=== PATIENT | female | born 1965 | race Caucasian/White ===

== ENCOUNTER 2016-09-05 04:05 | Inpatient (IN) | payer MEDICARE, MEDICAID ==
[2016-09-05] VITALS (7 sets, daily range): BP systolic 122–164; BP diastolic 69–93
[~2016-09-05] VITALS: Ht 160 cm; Wt 58.3 kg
[~2016-09-05 04:05] MED LIST: /QUET10TA; FERR325T; FOLI1TAB; NEUR600T; No Historical Meds; REME15TA; THIA100T
[2016-09-05] MEDS ORDERED: methylPREDNISolone INJ 125 MG/2 ML VIAL (J2930) IM ONE (04:15)
[2016-09-05 04:49] LABS: MEAN CORPUSCULAR HEMOGLOBIN 32.6 pg (27.0-33.0); MEAN CORPUSCULAR HGB CONC 32.7 g/dl (32.0-36.5); MEAN CORPUSCULAR VOLUME 99.7 fl (80.0-96.0); RED CELL DISTRIBUTION WIDTH 14.5 % (11.5-14.5); WHITE BLOOD COUNT 9.3 K/mm3 (4.0-10.0)
[2016-09-05] MEDS ORDERED: THIAMINE 100 MG TAB PO ONE (05:00)
[2016-09-05] MEDS ORDERED: FOLIC ACID 1 MG TAB PO ONE (05:00)
--- NOTE | 2016-09-05 05:20 | REPUSA ---
CLINICAL HISTORY: Altered level of consciousness. TECHNIQUE: Multiple axial CT images were obtained through the brain without IV contrast material. COMMENTS: There is normal configuration of sella turcica. There are no intra or extra-axial collections. There is no mass effect or midline shift. There is no evidence of hematoma formation. No hydrocephalus is p resent. The ventricles are symmetrical. No abnormal calcifications are present. There is diffuse age-appropriate cerebellar and cerebral atrophy with proportionally dilated ventricl es and cortical sulci. There are bilateral periventricular and subcortical white matter hypolucencies compatible with mild c hronic microvascular disease. Otherwise, no significant focal abnormalities are seen either in the posterior fossa or supratentoria l compartment. IMPRESSION: 1. Age-appropriate cerebellar and cerebral atrophy. 2. Mild chronic microvascular disease. 3. No evidence of acute intracranial pathology. No change from the prior exam on 04/11/2016. Thank you for your kind referral of this patient.
[2016-09-05] MEDS ORDERED: NEOSPORIN OINT 0.9 GM PKT (FLOOR STOCK) As Ordered ONE (05:31)
[2016-09-05 05:32] LABS: ALBUMIN 3.5 GM/DL (3.2-5.2); ALBUMIN/GLOBULIN RATIO 1.13 (1.00-1.93); ALKALINE PHOSPHATASE 108 U/L (45-117); ALT/SGPT 68 U/L (12-78); ANION GAP 15 MEQ/L (8-16); AST/SGOT 62 U/L (15-37); BILIRUBIN,DIRECT 0.4 MG/DL (0.0-0.2); BLOOD UREA NITROGEN 11 MG/DL (7-18); CARBON DIOXIDE LEVEL 21 MEQ/L (21-32); CHLORIDE LEVEL 94 MEQ/L (98-107); GLOMERULAR FILTRATION RATE 55.3 (>51); GLUCOSE, FASTING 162 MG/DL (70-105); POTASSIUM SERUM 3.6 MEQ/L (3.5-5.1); SODIUM LEVEL 130 MEQ/L (136-145); TOTAL PROTEIN 6.6 GM/DL (6.4-8.2)
[2016-09-05] MEDS ORDERED: MULTIVITAMIN -ADULT INJECTION 10 ML, THIAMINE INJection 100 MG, FOLIC ACID 1 MG in NS 1... IV ONE (06:00)
[2016-09-05 06:13] LABS: T UPTAKE 35 % (30-39); THYROXINE (T4) 6.6 UG/DL (4.5-12.0)
[2016-09-05] MEDS ORDERED: THIAMINE HCL 200 MG/2 ML VIAL (J3411) IV ONE (06:15)
[2016-09-05] MEDS ORDERED: LAMO150T PO (06:19)
[2016-09-05] MEDS ORDERED: VITA1CAP25 PO (06:19)
[2016-09-05] MEDS ORDERED: HYDR50CA2 PO (06:19)
[2016-09-05] MEDS ORDERED: SERO400T PO (06:19)
[2016-09-05] MEDS ORDERED: GABA800T PO (06:19)
[2016-09-05] MEDS ORDERED: ALBU17IN INH (06:19)
[2016-09-05 07:08] LABS: PERCENT SATURATION 23.8 % (13.2-37.4)
[2016-09-05] MEDS ORDERED: ACETAMINOPHEN TAB 650MG DOSE (2X325MG) PO PRN (07:15)
[2016-09-05] MEDS ORDERED: ONDANSETRON 4MG/2ML VIAL (J2405) IV PRN (07:15)
[2016-09-05] MEDS ORDERED: NICOTINE 21MG/24HR 1 EA TRANSDERMAL TD ONE (07:30)
[2016-09-05] MEDS ORDERED: OXAZEPAM 10 MG CAP PO PRN (07:30)
--- NOTE | 2016-09-05 08:09 | HPE ---
DATE OF ADMISSION: 09/05/2016 PRIMARY CARE PROVIDER: Aye Arcos in the [facility] CHIEF COMPLAINT: "I didn't want to come in". SUMMARY OF PRESENTATION: This is a 51-year-old who was apparently confused and combative at home. She was handcuffed and brought to the hospital for evaluation. In the emergency department, she was found to have waxing and waning mental status and I was called for admission with concerns about Korsakoff's dementia or alcoholic encephalopathy as the patient apparently has been binge drinking recently. Otherwise, the history is exceedingly limited. PAST MEDICAL HISTORY: Notable for bipolar, post traumatic stress disorder (PTSD), panic disorder, attention deficit hyperactivity disorder (ADHD), history of breast cancer status post mastectomy, granulomatous lung disease, chronic obstructive pulmonary disease (COPD) followed by [facility], nicotine dependence, hyperlipidemia, and history of alcohol abuse. No known drug allergies. SURGICAL HISTORY: Notable for mastectomy in 1994, colonoscopy with polypectomy in 2012. FAMILY HISTORY: Notable for a father who is alive at age 81 and mother who is at age 52 from lung cancer. SOCIAL HISTORY: She smokes a pack a day. She does drink alcohol. She is relatively vague about the amount she has been drinking. Denies any recreational drug use, specifically any synthetic marijuana. REVIEW OF SYSTEMS: Again, somewhat limited. No complaints of headache. No neck pain. No cough. No shortness of breath. No dysuria. No increased urinary frequency. No change in bowel habits. No diarrhea. Otherwise unremarkable. PHYSICAL EXAMINATION: Temperature 97.6, pulse 104, respiratory rate 16, blood pressure 106/63. She is awake and variously talks about herself in the same few sentences in the first and third person. It seems as though she may be confusing herself with another person, which seems somewhat odd. She also thinks that I was at her apartment earlier this evening. Currently believes she is in [facility] in [place]. Knows the year to be 2016. Believes it is September, which is a reasonable error. She knows that the president is not Haseeb, but Jaydon Kay. Head is normocephalic. Pupils are equally round and reactive, anicteric, not injected. Nasal septum is midline. Mucous membranes are tacky. Neck is supple. No cervical or supraclavicular adeonopathy. She has full range of motion without tenderness. Heart is in a regular rate and rhythm and is borderline tachycardic on my exam. No murmur, rub or gallop. Breathing is symmetrical, rested. I:E ratio is 1:3. No wheezes, rales or rhonchi. She is speaking in sentences. Radial pulses are 2+. Capillary refill is less than 2 seconds. No costovertebral angle (CVA) tenderness. No sacral edema. Abdomen is soft. Somewhat distended. Doughy. Nontender. Active bowel sounds. There is no significant lower extremity edema. She is moving all four extremities. Strength appears grossly symmetrical. Facies are symmetrical. She has a somewhat depressed mood and affect. White cell count 9.3, hemoglobin 11, and platelets 230. MCV is noted to be 99.7. Sodium is 130, potassium 3.6, chloride 94, carbon dioxide 21, BUN 11, creatinine 1.1, glucose 162. Iron is 76. TIBC is 320. Ferritin 63. Total bilirubin 1. Direct bilirubin 0.4. AST 62. ALT 68. Alkaline phosphatase 108. Total protein 6.6. Albumin 3.5. B12 and folate are pending. TSH is 4.77. Normal C4. Alcohol level is non detectably low. There is no electrocardiogram (EKG) for me to review. Results of a finger x-ray are pending. CT shows no acute pathology. ASSESSMENT: This is a 51-year-old with metabolic encephalopathy most likely related to alcohol use. Korsakoff's dementia is considered, but I believe this may represent early alcohol withdrawal in a patient who has been binge drinking and has a non detectably low alcohol level. The patient will likely require a two midnight hospital stay for further diagnostic work up and monitoring. PLAN: 1. Metabolic encephalopathy. Early alcohol withdrawal is considered. Will make Serax available as needed. At this point, the patient has been given a banana bag in the emergency department. Will continue with thiamine and folate as she has macrocytic anemia. 2. Psychiatric. The possibility of an underlying psychiatric exacerbation is considered and she may require psychiatric consult. At this point, she has no evidence of suicidal or homicidal ideation. It is slightly unusual that she is talking about herself in the first and third person. 3. The patient has history of breast cancer status post mastectomy. 4. The patient has history of chronic obstructive pulmonary disease which appears to be compensated at this point. 5. The patient has history of nicotine dependence. Will make a nicotine patch available to her during her stay. 6. The patient has history of alcohol abuse and may benefit from inpatient or outpatient treatment. At the end of this hospital course, [facility] ([facility]) will be consulted. 7. Deep vein thrombosis (DVT) prophylaxis is ordered in the form of Lovenox. 8. This patient has been signed out to Dr. Arsen Haskins.
[2016-09-05] MEDS ORDERED: NS 1,000 ML IV ONE (09:45)
[2016-09-05] MEDS ORDERED: OLANZapine INTRAMUSCULAR 10 MG VIAL (S0166) IM ONE ×2 (10:15→21:30)
[2016-09-05] MEDS ORDERED: LORazepam 2 MG TAB PO PRN (10:15)
[2016-09-05 10:21] LABS: METHADONE URINE NEGATIVE (NEGATIVE)
[2016-09-05] MEDS ORDERED: LORazepam 1 MG TAB PO PRN (12:18)
[2016-09-05] MEDS: ENOXAPARIN 40 MG/0.4 ML SYRINGE (J1650) SC SCH (12:33)
--- NOTE | 2016-09-05 12:49 | IPNPDOC ---
Subjective Date Seen The patient was seen on 09/05/16. Subjective Chief Complaint/HPI The patient is a 51-year-old female admitted with a reason for visit of Alcoholic Encephalopathy. Events since last encounter Patient was admitted to the medical service for concern for alcohol withdrawal. However, patient states that she has not had a drop of alcohol for 2 weeks. She states that she is usually a binge drinker, however is been attempting to quit. She states that she has been having some episodes of john recently, and has been much more agitated. She's begun having visual and auditory hallucinations. She states that she has a history of bipolar disorder, however has been off of Seroquel for quite some time. She currently denies any other symptoms, fevers, chills, sweats, shortness of breath, dysuria, or headaches. Constitutional: Denies: Chills, Fever, Malaise, Night Sweats ENT: Denies: Head Aches Skin: Denies: Rash, Lesions Pulmonary: Denies: Dyspnea, Cough Cardiovascular: Denies: Chest Pain, Palpitations Gastrointestinal: Denies: Nausea, Vomiting, Abdominal Pain, Diarrhea, Constipation Genitourinary: Denies: Dysuria Psych: Reports: Anxiety, Depression, Other Psych (increased agitation, hallucinations, hypomania), Denies: Mood Normal, Thoughts of Self Harm Objective Physical Examination General Exam: Positive: Alert, Cooperative, No Acute Distress Eye Exam: Positive: PERRLA, Conjunctiva & lids normal ENT Exam: Positive: Atraumatic, Mucous membr. moist/pink Neck Exam: Positive: Supple, Negative: JVD, thyromegaly Chest Exam: Positive: Clear to auscultation, Normal air movement, Diminished, Negative: Rales, Rhonchi, Wheezing Heart Exam: Positive: Tachycardic, Regular Rhythm, Normal S1, Normal S2, Negative: Murmurs, Rubs Abdomen Exam: Positive: Normal bowel sounds, Soft, Negative: Tenderness, Hepatospenomegaly Extremity Exam: Positive: Normal pulses, Negative: Clubbing, Cyanosis, Edema Skin Exam: Positive: Nl turgor and temperature, Negative: Rash, Breakdown Neuro Exam: Positive: Normal Speech, Other (mild tremor of hands bilaterally) Psych Exam: Positive: Oriented x 3, Other (calm and cooperative, however required dose of IM Zyprexa ,30 minutes prior to exam), Negative: Mood NL (depressed affect) Assessment /Plan Problems (1) Bipolar II disorder major depressive with atypical features Status: Chronic Response to Treatment: Worse Problem Text: Patient's initial admission diagnoses for concern for Warnicke Korsakoff. However, patient's change in mental status may be related to her underlying mixed mood disorder, which is not currently being treated. She required an IM dose of Zyprexa in the ER for hallucinations, agitation, and combativeness. At the time of the exam, the patient was calm, cooperative, and had a mild rest tremor in her hands bilaterally. She denies drinking for the past 2 weeks, which would make acute alcohol withdrawal very unlikely. She describes episodes of hypomania at home, and her change in behavior, mood, agitation, and hallucinations could all be connected to her underlying, untreated mood disorder. - 1 time aripiprazole 10 mg at bedtime -Aripiprazole 15 mg at bedtime thereafter -Consult psychiatry 09/06/2016 (2) Alcoholism /alcohol abuse Problem Text: Patient received banana bag in the ER. Per patient's story, it would be highly unlikely for her to have any withdrawal symptoms 2 weeks after her last drink. However, we'll continue by mouth folate and B12, and continue CIWA scoring overnight. If she is not scoring after starting treatment for her underlying psych disorder, we will plan to move her to the floor tomorrow. - CIWA with PRN lorazepam - folate, B12 Plan/VTE VTE Prophylaxis Ordered?: Yes (Lovenox) Disposition Pending psych eval, stable neurologic status, stable psychiatric status VS, I&O, 24H, Fishbone Vital Signs/I&O Vital Signs Date Time Temp Pulse Resp B/P (MAP) Pulse Ox O2 Delivery O2 Flow Rate FiO2 09/05/16 12:01 110 130/88 09/05/16 12:00 99.5 09/05/16 11:44 20 94 Laboratory Data 24H LABS Laboratory Tests 2 09/05/16 04:36: Iron Level 76, Total Iron Binding Capacity 320, Transferrin % Saturation 23.8, Ferritin 63, C-Reactive Protein, Quantitative 0.78H 09/05/16 04:43: Anion Gap 15, Glomerular Filtration Rate 55.3, Calcium Level 8.0L, Aspartate Amino Transf (AST/SGOT) 62H, Alanine Aminotransferase (ALT/SGPT) 68, Alkaline Phosphatase 108, Total Bilirubin 1.0, Direct Bilirubin 0.4H, Total Protein 6.6, Albumin 3.5, Albumin/Globulin Ratio 1.13, Thyroid Stimulating Hormone (TSH) 4.770H, Thyroxine (T4) 6.6, Triiodothyronine (T3) Uptake 35, Salicylates Level 4.3L, Acetaminophen Level 2.4L, Ethyl Alcohol Level < 0.003 09/05/16 09:37: Urine Amphetamines Screen NEGATIVE, Urine Benzodiazepines Screen NEGATIVE, Urine Opiates Screen NEGATIVE, Urine Methadone Screen NEGATIVE, Urine Barbiturates Screen NEGATIVE, Urine Phencyclidine Screen NEGATIVE, Urine Cocaine Metabolite Screen NEGATIVE, Urine Cannabinoids Screen POSITIVEH CBC/BMP Laboratory Tests 09/05/16 04:42 Red Blood Count 3.38 L, Mean Corpuscular Volume 99.7 H, Mean Corpuscular Hemoglobin 32.6, Mean Corpuscular Hemoglobin Concent 32.7, Red Cell Distribution Width 14.5 09/05/16 04:43 FANI MENDOZA MD Sep 05, 2016 12:49
--- NOTE | 2016-09-05 14:45 | REP ---
RIGHT FINGERS, FOUR VIEWS: HISTORY: Trauma. There is no acute fracture or dislocation. The joint spaces are normal in appearance. IMPRESSION: There is no acute fracture or dislocation. Signed by Jaspreet Kelly MD 09/05/2016 03:18 P
[2016-09-05] MEDS ORDERED: LORazepam 2 MG/ML VIAL (J2060) As Ordered ONE (19:51)
[2016-09-05] MEDS: LORazepam 2 MG/ML VIAL (J2060) IV PRN ×3 (19:55→22:44)
[2016-09-05] MEDS ORDERED: ARIPiprazole 10 MG TAB PO ONE (21:00)
[2016-09-06] VITALS (8 sets, daily range): BP systolic 116–146; BP diastolic 69–91
[2016-09-06 05:27] LABS: MEAN CORPUSCULAR HEMOGLOBIN 33.1 pg (27.0-33.0); MEAN CORPUSCULAR HGB CONC 33.4 g/dl (32.0-36.5); MEAN CORPUSCULAR VOLUME 99.2 fl (80.0-96.0); RED CELL DISTRIBUTION WIDTH 14.3 % (11.5-14.5); WHITE BLOOD COUNT 6.8 K/mm3 (4.0-10.0)
[2016-09-06 05:44] LABS: ANION GAP 9 MEQ/L (8-16); BLOOD UREA NITROGEN 8 MG/DL (7-18); CALCIUM LEVEL 7.6 MG/DL (8.5-10.1); CARBON DIOXIDE LEVEL 24 MEQ/L (21-32); CHLORIDE LEVEL 106 MEQ/L (98-107); CREATININE FOR GFR 0.52 MG/DL (0.55-1.02); GLUCOSE, FASTING 75 MG/DL (70-105); MAGNESIUM LEVEL 2.4 MG/DL (1.8-2.4); POTASSIUM SERUM 3.2 MEQ/L (3.5-5.1); SODIUM LEVEL 139 MEQ/L (136-145)
[2016-09-06 05:47] LABS: GLOMERULAR FILTRATION RATE > 60.0 (>51)
[2016-09-06] MEDS: FOLIC ACID 1 MG TAB PO SCH (09:19)
[2016-09-06] MEDS: MULTIVITAMINS/MINERALS THERAP 1 TAB PO SCH (09:19)
[2016-09-06] MEDS: ENOXAPARIN 40 MG/0.4 ML SYRINGE (J1650) SC SCH (09:20)
[2016-09-06] MEDS: THIAMINE HCL 200 MG/2 ML VIAL (J3411) IV SCH (09:20)
--- NOTE | 2016-09-06 09:45 | IPNPDOC ---
Subjective Date Seen The patient was seen on 09/06/16. Subjective Chief Complaint/HPI The patient is a 51-year-old female admitted with a reason for visit of Alcoholic Encephalopathy. Events since last encounter Pt states this morning that she hasn't had a drink in 3-4 days, states that she stopped drinking about 12 pack of beer daily. She states that she recently came into a large settlement and decided that she didn't want to drink away all of her money. She in the last 3-4 weeks has felt very depressed which prompted her increased drinking. She was involved and a psych/addiction treatment program in [facility], which she stopped attending about 4 weeks ago bc of increased depression. General: Reports: Fatigue Constitutional: Denies: Chills, Fever Pulmonary: Denies: Dyspnea, Cough Cardiovascular: Denies: Chest Pain, Palpitations Gastrointestinal: Denies: Nausea, Vomiting, Diarrhea Neurological: Reports: Weakness Psych: Reports: Anxiety, Depression, Memory Issues, Denies: Thoughts of Self Harm, Anger, Thoughts of Harming Other Objective Physical Examination General Exam: Positive: Alert, Cooperative, No Acute Distress Eye Exam: Positive: PERRLA, Conjunctiva & lids normal ENT Exam: Positive: Atraumatic, Mucous membr. moist/pink Neck Exam: Positive: Supple, Negative: JVD, thyromegaly Chest Exam: Positive: Clear to auscultation, Normal air movement, Diminished, Negative: Rales, Rhonchi, Wheezing Heart Exam: Positive: Tachycardic, Regular Rhythm, Normal S1, Normal S2, Negative: Murmurs, Rubs Abdomen Exam: Positive: Normal bowel sounds, Soft, Negative: Tenderness, Hepatospenomegaly Extremity Exam: Positive: Normal pulses, Negative: Clubbing, Cyanosis, Edema Skin Exam: Positive: Nl turgor and temperature, Negative: Rash, Breakdown Neuro Exam: Positive: Normal Speech, Other (mild tremor of hands bilaterally) Psych Exam: Positive: Oriented x 3, Other (calm and cooperative, however required dose of IM Zyprexa ,30 minutes prior to exam), Negative: Mood NL (depressed affect) Assessment /Plan Problems (1) Fever Problem Text: 09/06/16 101.5 at 12:20-no obvious source, declining WBC, ? 2 too many blankets +/- URI-t/f (2) Alcoholism /alcohol abuse Problem Text: 09/06- Ok to transfer to the floor, Cont with prn lorazepam- although last dose 09/05/16 1900 c no s/s of withdraw. Psychiatry recommends out -patient rx. will benefit from [facility] addiction services-plan d/c in AM if stable by PT and resolved fever 09/05 Patient received banana bag in the ER. Per patient's story, it would be highly unlikely for her to have any withdrawal symptoms 2 weeks after her last drink. However, we'll continue by mouth folate and B12, and continue CIWA scoring overnight. If she is not scoring after starting treatment for her underlying psych disorder, we will plan to move her to the floor tomorrow. - CIWA with PRN lorazepam - folate, B12 (3) Bipolar II disorder major depressive with atypical features Status: Chronic Response to Treatment: Worse Problem Specific Plan: Consult Specialist Problem Text: 09/06 - Refused PO med Abilify last night, was given IM Zyprexa yesterday AM and repeated in the evening. Will consult psych for recommendations. 09/05 Patient's initial admission diagnoses for concern for Warnicke Korsakoff. However, patient's change in mental status may be related to her underlying mixed mood disorder, which is not currently being treated. She required an IM dose of Zyprexa in the ER for hallucinations, agitation, and combativeness. At the time of the exam, the patient was calm, cooperative, and had a mild rest tremor in her hands bilaterally. She denies drinking for the past 2 weeks, which would make acute alcohol withdrawal very unlikely. She describes episodes of hypomania at home, and her change in behavior, mood, agitation, and hallucinations could all be connected to her underlying, untreated mood disorder. - 1 time aripiprazole 10 mg at bedtime -Aripiprazole 15 mg at bedtime thereafter -Consult psychiatry 09/06/2016 Plan/VTE VTE Prophylaxis Ordered?: Yes (Lovenox) VS, I&O, 24H, Fishbone Vital Signs/I&O Vital Signs Date Time Temp Pulse Resp B/P (MAP) Pulse Ox O2 Delivery O2 Flow Rate FiO2 09/06/16 08:00 98.8 93 20 122/83 (96) 91 Room Air I&O- Last 24 Hours up to 6 AM 09/06/16 06:00 Intake Total 2060 ml Output Total 900 ml Balance 1160 ml Laboratory Data 24H LABS Laboratory Tests 2 09/05/16 09:37: Urine Amphetamines Screen NEGATIVE, Urine Benzodiazepines Screen NEGATIVE, Urine Opiates Screen NEGATIVE, Urine Methadone Screen NEGATIVE, Urine Barbiturates Screen NEGATIVE, Urine Phencyclidine Screen NEGATIVE, Urine Cocaine Metabolite Screen NEGATIVE, Urine Cannabinoids Screen POSITIVEH 09/06/16 05:09: Anion Gap 9, Glomerular Filtration Rate > 60.0, Blood Urea Nitrogen 8, Creatinine 0.52#L, Sodium Level 139#, Potassium Level 3.2L, Chloride Level 106, Carbon Dioxide Level 24, Calcium Level 7.6L, Magnesium Level 2.4 CBC/BMP Laboratory Tests 09/06/16 05:09 Red Blood Count 3.08 L, Mean Corpuscular Volume 99.2 H, Mean Corpuscular Hemoglobin 33.1 H, Mean Corpuscular Hemoglobin Concent 33.4, Red Cell Distribution Width 14.3, Calcium Level 7.6 L AMBERLY CHRISTOPHER PA-C September 06, 2016 09:45 Wilian Cobos M.D. September 06, 2016 13:37
[2016-09-06 11:05] LABS: FOLATE 12.6 NG/ML (>5.4)
[2016-09-06] MEDS: POTASSIUM CHLORIDE 10 MEQ SR TABLET PO SCH ×2 (14:37→20:14)
[2016-09-06] MEDS: ARIPiprazole 15 MG TAB (AbiLIFY) PO SCH ×2 (20:14→20:31)
[2016-09-06] MEDS ORDERED: QUEtiapine FUMARATE 100 MG TAB PO ONE (20:30)
[2016-09-06] MEDS ORDERED: GABAPENTIN 400 MG CAP PO ONE (20:30)
[2016-09-07 06:00] VITALS: BP 109/62
[2016-09-07 06:57] VITALS: BP 140/76
[2016-09-07 07:13] LABS: MEAN CORPUSCULAR HEMOGLOBIN 33.7 pg (27.0-33.0); MEAN CORPUSCULAR HGB CONC 33.5 g/dl (32.0-36.5); MEAN CORPUSCULAR VOLUME 100.5 fl (80.0-96.0); RED CELL DISTRIBUTION WIDTH 14.5 % (11.5-14.5); WHITE BLOOD COUNT 5.5 K/mm3 (4.0-10.0)
[2016-09-07 07:29] LABS: ANION GAP 8 MEQ/L (8-16); BLOOD UREA NITROGEN 8 MG/DL (7-18); CALCIUM LEVEL 7.9 MG/DL (8.5-10.1); CARBON DIOXIDE LEVEL 25 MEQ/L (21-32); CHLORIDE LEVEL 108 MEQ/L (98-107); CREATININE FOR GFR 0.53 MG/DL (0.55-1.02); GLOMERULAR FILTRATION RATE > 60.0 (>51); GLUCOSE, FASTING 92 MG/DL (70-105); MAGNESIUM LEVEL 2.3 MG/DL (1.8-2.4); POTASSIUM SERUM 3.5 MEQ/L (3.5-5.1); SODIUM LEVEL 141 MEQ/L (136-145)
[2016-09-07] MEDS: THIAMINE HCL 200 MG/2 ML VIAL (J3411) IV SCH (09:00)
[2016-09-07] MEDS: ENOXAPARIN 40 MG/0.4 ML SYRINGE (J1650) SC SCH (09:04)
[2016-09-07] MEDS: POTASSIUM CHLORIDE 10 MEQ SR TABLET PO SCH (09:05)
[2016-09-07] MEDS: FOLIC ACID 1 MG TAB PO SCH (09:05)
[2016-09-07] MEDS: MULTIVITAMINS/MINERALS THERAP 1 TAB PO SCH (09:05)
[2016-09-07] MEDS ORDERED: FOLI1TAB2 PO (09:29)
[2016-09-07] MEDS ORDERED: HYDR50CA2 PO (09:29)
[2016-09-07] MEDS ORDERED: SERO400T PO (09:29)
[2016-09-07] MEDS ORDERED: POTA10CA PO (09:29)
[2016-09-07] MEDS ORDERED: VITMTA PO (09:29)
[2016-09-07] MEDS ORDERED: LAMO150T PO (09:29)
[2016-09-07] MEDS ORDERED: THIA100T PO (09:29)
--- NOTE | 2016-09-07 10:31 | DSES ---
DATE OF ADMISSION: 09/05/2016 DATE OF DISCHARGE: 09/07/2016 PRIMARY CARE PROVIDER: DIEUDONNE Agarwal ATTENDING PHYSICIAN: Dr. Wilian Cobos HISTORY: This is a 51-year-old female patient who follows with me in the outpatient setting, who was brought to the emergency room combative and confused. She required being handcuffed and brought to the hospital for evaluation as she had waxing and waning in her mental status. Her history is vague, as she is a poor historian but also has had mental status changes, although she does have a history of binge drinking. Her most recent and persistent story is that she has been on a binge for 2-3 months, drinking about a 12-pack of beer a day. She recently came across a large sum of money associated with a settlement and decided that she was not going to drink all of her money away and, therefore, suddenly stopped drinking and had progressive symptoms associated with that leading up to her hospitalization. She also, at about the time she began drinking, discontinued her routine psychiatric medications for her bipolar disorder, which included Lamictal and Seroquel. She had been following 2-3 days weekly prior to this most recent episode in [place] with [facility], although she stopped showing up at those appointments. She was in treatment for dual mental health and addiction services. During her hospitalization, she has remained medically stable. She was admitted to the progressive care unit for further treatment and monitoring. She was offered lorazepam and Serax, although she only received one dose of Serax shortly after her arrival. She also received three doses of Ativan, also shortly after her arrival. Abilify was prescribed, although the patient has consistently refused this. Given her history of alcohol abuse, she was started on thiamine and folic acid. She received a banana bag in the emergency room. She has been eating well. She was hypokalemic, and this has been replaced. She is eager to return home. She does not plan on resuming drinking. She notes that part of the additional stress which she thinks sent her over the edge is the fact that she has to move out of her apartment as the building she is in is currently being shut down for remodel. She is planning to move to [place], as she has family in that area. DISCHARGE DIAGNOSES: Include: 1. Alcoholic encephalopathy with a history of alcoholism. 2. Fever. 3. Bipolar disorder with major depressive and atypical features. DISCHARGE MEDICATIONS: Include: - folic acid 1 mg daily - multivitamin one tablet daily - potassium chloride 20 mEq by mouth twice a day - thiamine 100 mg by mouth daily - albuterol HFA two puffs inhaled every 4 hours as needed for shortness of breath - vitamin D3, 50,000 units once weekly - hydroxyzine 50 mg by mouth three times daily as needed for anxiety or agitation - lamotrigine 150 mg daily Seroquel was dropped from 400 mg to 200 mg before bed, as she has not been on this. DISCHARGE PLAN: Will be to followup with Aye Arcos in 1 week. Activity should be as tolerated. Diet should be regular. I also requested that a referral was reinitiated to [facility] for bipolar disorder with depressive features and alcohol abuse history. Edited: baldev 09/08/2016 [id number]
[2016-09-07 10:40] VITALS: BP 109/62
== END 2016-09-07 10:58 | disposition home or self-care (01) | DRG 57 ==
LOC: EDBD 04:05 → M ED 05:18 → M ED INP 07:05 → M PCU 12:00 → M MSPAV 09-06 14:32
PROVIDERS: ADMIT Internal Medicine; ATTEND Family Medicine
DX: G31.2 Degeneration of nervous system due to alcohol (principal); F31.81 Bipolar II disorder; F10.20 Alcohol dependence, uncomplicated; F43.10 Post-traumatic stress disorder, unspecified; E78.5 Hyperlipidemia, unspecified; F41.0 Panic disorder [episodic paroxysmal anxiety]; J44.9 Chronic obstructive pulmonary disease, unspecified; J84.10 Pulmonary fibrosis, unspecified; F17.210 Nicotine dependence, cigarettes, uncomplicated; E87.6 Hypokalemia; Z90.10 Acquired absence of unspecified breast and nipple; Z85.3 Personal history of malignant neoplasm of breast; Z79.899 Other long term (current) drug therapy

== ENCOUNTER 2017-05-29 03:59 | Inpatient (IN) | payer MEDICARE, MEDICAID ==
[2017-05-29] MEDS: PHENobarbital 30 MG TAB PO (04:29)
[2017-05-29 04:45] LABS: MEAN CORPUSCULAR HEMOGLOBIN 32.6 pg (27.0-33.0); MEAN CORPUSCULAR HGB CONC 35.5 g/dl (32.0-36.5); PLATELET COUNT, AUTOMATED 265 10^3/uL (150-450); RED BLOOD COUNT 3.37 10^6/uL (4.00-5.40); RED CELL DISTRIBUTION WIDTH 14.8 % (11.5-14.5); WHITE BLOOD COUNT 11.8 10^3/uL (4.0-10.0)
[2017-05-29] MEDS: THIAMINE 100 MG TAB PO (04:56)
[2017-05-29 05:10] LABS: ACETAMINOPHEN LEVEL < 2.0 UG/ML (10.0-30.0); ALBUMIN 3.3 GM/DL (3.2-5.2); ALBUMIN/GLOBULIN RATIO 0.97 (1.00-1.93); ALKALINE PHOSPHATASE 197 U/L (45-117); ALT/SGPT 108 U/L (12-78); ANION GAP 16 MEQ/L (8-16); AST/SGOT 118 U/L (7-37); BILIRUBIN,DIRECT 0.4 MG/DL (0.0-0.2); BLOOD UREA NITROGEN 11 MG/DL (7-18); CALCIUM LEVEL 8.4 MG/DL (8.5-10.1); CARBON DIOXIDE LEVEL 24 MEQ/L (21-32); CHLORIDE LEVEL 91 MEQ/L (98-107); CREATININE FOR GFR 1.02 MG/DL (0.55-1.02); GLOMERULAR FILTRATION RATE > 60.0 (>51); GLUCOSE, FASTING 179 MG/DL (70-105); POTASSIUM SERUM 2.6 MEQ/L (3.5-5.1); SALICYLATE LEVEL < 1.7 MG/DL (5.0-30.0); SODIUM LEVEL 131 MEQ/L (136-145); TOTAL PROTEIN 6.7 GM/DL (6.4-8.2)
[2017-05-29 05:12] LABS: ETHYL ALCOHOL (ETHANOL) < 0.003 % (0.000-0.010)
[2017-05-29] MEDS: POTASSIUM CHLORIDE 10 MEQ SR TABLET PO ×2 (05:28→16:30)
[2017-05-29 06:09] LABS: AMPHETAMINES LEVEL URINE NEGATIVE (NEGATIVE); BARBITURATES URINE POSITIVE (NEGATIVE); BENZODIAZEPINES URINE NEGATIVE (NEGATIVE); CANNABINOIDS URINE POSITIVE (NEGATIVE); COCAINE METABOLITE URINE POSITIVE (NEGATIVE); METHADONE URINE NEGATIVE (NEGATIVE); OPIATES URINE NEGATIVE (NEGATIVE); PHENCYCLIDINE URINE NEGATIVE (NEGATIVE)
[2017-05-29] MEDS: KCL 10MEQ IN 100ML SWI (KRUN) 10 MEQ in APPROPRIATE DILUENT 1 EA IV (07:59)
[2017-05-29] MEDS: NS 1,000 ML IV ×2 (08:00→10:15)
[2017-05-29] MEDS: ADACEL/BOOSTRIX VACCINE (DIPHTH/PERTUSS/ACELL/TETANUS)0.5ML SYR (90715) IM (08:09)
[2017-05-29 08:17] LABS: MAGNESIUM LEVEL 1.9 MG/DL (1.8-2.4)
[2017-05-29] MEDS: CYANOCOBALAMIN 1,000 MCG/ML VIAL (J3420) SC (09:00)
[2017-05-29] MEDS ORDERED: ONDANSETRON 4 MG TAB (S0181) PO (09:45)
[2017-05-29] MEDS ORDERED: ALBUTEROL 90 MCG/ACT 8GM HFA INHALER INH (10:30)
[2017-05-29 10:42] LABS: AMMONIA 30 uMOL/L (<32)
[2017-05-29 10:47] LABS: ANION GAP 10 MEQ/L (8-16); BLOOD UREA NITROGEN 9 MG/DL (7-18); CALCIUM LEVEL 7.8 MG/DL (8.5-10.1); CARBON DIOXIDE LEVEL 26 MEQ/L (21-32); CHLORIDE LEVEL 97 MEQ/L (98-107); CREATININE FOR GFR 0.61 MG/DL (0.55-1.02); GLOMERULAR FILTRATION RATE > 60.0 (>51); GLUCOSE, FASTING 138 MG/DL (70-105); POTASSIUM SERUM 3.3 MEQ/L (3.5-5.1); SODIUM LEVEL 133 MEQ/L (136-145)
[2017-05-29] MEDS: THIAMINE IV (10:53)
[2017-05-29] MEDS: NS IV (10:53)
[2017-05-29] MEDS ORDERED: hydrOXYzine 50 MG TAB PO (11:00)
[2017-05-29] MEDS ORDERED: OXAZEPAM 10 MG CAP PO (12:00)
[2017-05-29] MEDS ORDERED: KCL 10MEQ IN 100ML SWI (KRUN) 10 MEQ in APPROPRIATE DILUENT 1 EA IV (13:00)
[2017-05-29] MEDS ORDERED: HEPARIN SOD (PORCINE) 5000 UNITS/ML VIAL SC (14:00)
[2017-05-29] MEDS: GABAPENTIN 400 MG CAP PO ×2 (16:29→21:08)
[2017-05-29] MEDS ORDERED: QUEtiapine FUMARATE 200 MG TAB PO (21:00)
[2017-05-29] MEDS: QUEtiapine FUMARATE 200 MG TAB PO (21:08)
[2017-05-29] MEDS: THIAMINE HCL 200 MG/2 ML VIAL (J3411) IM (21:09)
[2017-05-29] MEDS: LORazepam 2 MG/ML VIAL (J2060) IV (21:52)
[2017-05-30 07:01] LABS: HEMATOCRIT 27.6 % (36.0-47.0); HEMOGLOBIN 9.4 g/dl (12.0-16.0); MEAN CORPUSCULAR HEMOGLOBIN 32.1 pg (27.0-33.0); MEAN CORPUSCULAR HGB CONC 34.1 g/dl (32.0-36.5); MEAN CORPUSCULAR VOLUME 94.2 fl (80.0-96.0); PLATELET COUNT, AUTOMATED 262 10^3/uL (150-450); RED BLOOD COUNT 2.93 10^6/uL (4.00-5.40); RED CELL DISTRIBUTION WIDTH 15.9 % (11.5-14.5); WHITE BLOOD COUNT 7.5 10^3/uL (4.0-10.0)
[2017-05-30 07:15] LABS: INR 0.96; PROTHROMBIN TIME 12.9 SECONDS (12.4-14.5)
[2017-05-30 07:16] LABS: PARTIAL THROMBOPLASTIN TIME 30.9 SECONDS (26.8-37.9)
[2017-05-30 07:28] LABS: ANION GAP 9 MEQ/L (8-16); BLOOD UREA NITROGEN 10 MG/DL (7-18); CALCIUM LEVEL 8.3 MG/DL (8.5-10.1); CARBON DIOXIDE LEVEL 23 MEQ/L (21-32); CHLORIDE LEVEL 105 MEQ/L (98-107); CREATININE FOR GFR 0.44 MG/DL (0.55-1.02); GLOMERULAR FILTRATION RATE > 60.0 (>51); GLUCOSE, FASTING 80 MG/DL (70-105); POTASSIUM SERUM 3.3 MEQ/L (3.5-5.1); SODIUM LEVEL 137 MEQ/L (136-145)
[2017-05-30] MEDS: QUEtiapine FUMARATE 200 MG TAB PO ×2 (09:38→20:16)
[2017-05-30] MEDS: CYANOCOBALAMIN 1,000 MCG/ML VIAL (J3420) SC (09:38)
[2017-05-30] MEDS: GABAPENTIN 400 MG CAP PO ×3 (09:38→20:16)
[2017-05-30] MEDS: THIAMINE HCL 200 MG/2 ML VIAL (J3411) IM ×2 (09:38→20:17)
[2017-05-30 11:47] LABS: VITAMIN B12 LEVEL 402 PG/ML (247-911)
[2017-05-30 11:48] LABS: FOLATE 13.2 NG/ML (>5.4)
[2017-05-30 12:04] LABS: HEPATITIS C VIRUS ABY INDEX 0.1 INDEX (<0.8)
[2017-05-30 12:54] LABS: HEPATITIS B SURFACE ANTIGEN NEGATIVE (NEGATIVE)
[2017-05-30 13:22] LABS: HEPATITIS B CORE ANTIBODY IGM NEGATIVE (NEGATIVE)
[2017-05-30 13:24] LABS: HEPATITIS A ANTIBODY IGM NEGATIVE (NEGATIVE)
[2017-05-30] MEDS: POTASSIUM CHLORIDE 10 MEQ SR TABLET PO ×2 (13:41→20:16)
[2017-05-30] MEDS: LORazepam 2 MG/ML VIAL (J2060) IV ×4 (13:57→22:10)
[2017-05-30 14:31] LABS: RETIC HEMOGLOBIN EQUIVALENT 38.5 pg (24-36); RETICULOCYTE # 89.2 10^9/L (17-77); RETICULOCYTE % 3.1 % (0.5-1.5)
[2017-05-30 14:41] LABS: INR 0.88
[2017-05-30 14:42] LABS: PARTIAL THROMBOPLASTIN TIME 31.5 SECONDS (26.8-37.9)
[2017-05-30 14:44] LABS: MAGNESIUM LEVEL 1.9 MG/DL (1.8-2.4)
[2017-05-30 14:59] LABS: FOLATE 9.3 NG/ML (>5.4)
[2017-05-30 14:59] LABS: VITAMIN B12 LEVEL > 2000 PG/ML (247-911)
[2017-05-30 15:22] LABS: HEPATITIS B SURFACE ANTIGEN NEGATIVE (NEGATIVE)
[2017-05-30 15:50] LABS: HEPATITIS B CORE ANTIBODY IGM NEGATIVE (NEGATIVE)
[2017-05-30 15:52] LABS: HEPATITIS A ANTIBODY IGM NEGATIVE (NEGATIVE)
[2017-05-30 16:55] LABS: ACETAMINOPHEN LEVEL < 2.0 UG/ML (10.0-30.0); ALBUMIN 2.8 GM/DL (3.2-5.2); ALBUMIN/GLOBULIN RATIO 0.88 (1.00-1.93); ALKALINE PHOSPHATASE 165 U/L (45-117); ALT/SGPT 100 U/L (12-78); ANION GAP 7 MEQ/L (8-16); AST/SGOT 122 U/L (7-37); BILIRUBIN,DIRECT 0.2 MG/DL (0.0-0.2); BILIRUBIN,TOTAL 0.4 MG/DL (0.2-1.0); BLOOD UREA NITROGEN 11 MG/DL (7-18); CALCIUM LEVEL 8.2 MG/DL (8.5-10.1); CARBON DIOXIDE LEVEL 29 MEQ/L (21-32); CHLORIDE LEVEL 104 MEQ/L (98-107); CREATININE FOR GFR 0.56 MG/DL (0.55-1.02); ETHYL ALCOHOL (ETHANOL) < 0.003 % (0.000-0.010); FERRITIN 95 NG/ML (8-252); FREE T4 0.92 NG/DL (0.76-1.46); GLOMERULAR FILTRATION RATE > 60.0 (>51); GLUCOSE, FASTING 87 MG/DL (70-100); IRON (FE) 25 UG/DL (50-170); PERCENT SATURATION 12.4 % (13.2-45.0); POTASSIUM SERUM 3.8 MEQ/L (3.5-5.1); SALICYLATE LEVEL < 1.7 MG/DL (5.0-30.0); SODIUM LEVEL 140 MEQ/L (136-145); TOTAL IRON BINDING CAPACITY 202 UG/DL (250-450)
[2017-05-31] MEDS: LORazepam 2 MG/ML VIAL (J2060) IV ×3 (00:44→09:37)
[2017-05-31 06:34] LABS: HEMATOCRIT 27.7 % (36.0-47.0); HEMOGLOBIN 9.3 g/dl (12.0-16.0); MEAN CORPUSCULAR HEMOGLOBIN 31.6 pg (27.0-33.0); MEAN CORPUSCULAR HGB CONC 33.6 g/dl (32.0-36.5); MEAN CORPUSCULAR VOLUME 94.2 fl (80.0-96.0); PLATELET COUNT, AUTOMATED 313 10^3/uL (150-450); RED BLOOD COUNT 2.94 10^6/uL (4.00-5.40); RED CELL DISTRIBUTION WIDTH 16.2 % (11.5-14.5); WHITE BLOOD COUNT 8.9 10^3/uL (4.0-10.0)
[2017-05-31 07:00] LABS: ANION GAP 9 MEQ/L (8-16); BLOOD UREA NITROGEN 9 MG/DL (7-18); CALCIUM LEVEL 8.1 MG/DL (8.5-10.1); CARBON DIOXIDE LEVEL 26 MEQ/L (21-32); CHLORIDE LEVEL 103 MEQ/L (98-107); CREATININE FOR GFR 0.48 MG/DL (0.55-1.02); GLOMERULAR FILTRATION RATE > 60.0 (>51); GLUCOSE, FASTING 93 MG/DL (70-100); MAGNESIUM LEVEL 1.8 MG/DL (1.8-2.4); POTASSIUM SERUM 4.1 MEQ/L (3.5-5.1); SODIUM LEVEL 138 MEQ/L (136-145)
[2017-05-31] MEDS: GABAPENTIN 400 MG CAP PO ×3 (09:36→20:30)
[2017-05-31] MEDS: CYANOCOBALAMIN 1,000 MCG/ML VIAL (J3420) SC (09:36)
[2017-05-31] MEDS: POTASSIUM CHLORIDE 10 MEQ SR TABLET PO ×2 (09:36→20:30)
[2017-05-31] MEDS: THIAMINE HCL 200 MG/2 ML VIAL (J3411) IM (09:36)
[2017-05-31] MEDS: QUEtiapine FUMARATE 200 MG TAB PO ×2 (09:36→20:30)
[2017-05-31] MEDS: OXAZEPAM 15 MG CAP PO (14:00)
[2017-05-31] MEDS ORDERED: OXAZEPAM 10 MG CAP PO (16:00)
[2017-06-01 06:26] LABS: HEMATOCRIT 30.4 % (36.0-47.0); HEMOGLOBIN 10.2 g/dl (12.0-16.0); MEAN CORPUSCULAR HEMOGLOBIN 31.4 pg (27.0-33.0); MEAN CORPUSCULAR HGB CONC 33.6 g/dl (32.0-36.5); MEAN CORPUSCULAR VOLUME 93.5 fl (80.0-96.0); PLATELET COUNT, AUTOMATED 377 10^3/uL (150-450); RED BLOOD COUNT 3.25 10^6/uL (4.00-5.40); RED CELL DISTRIBUTION WIDTH 15.9 % (11.5-14.5); WHITE BLOOD COUNT 9.5 10^3/uL (4.0-10.0)
[2017-06-01 06:39] LABS: ANION GAP 7 MEQ/L (8-16); BLOOD UREA NITROGEN 8 MG/DL (7-18); CALCIUM LEVEL 8.1 MG/DL (8.5-10.1); CARBON DIOXIDE LEVEL 27 MEQ/L (21-32); CHLORIDE LEVEL 102 MEQ/L (98-107); CREATININE FOR GFR 0.46 MG/DL (0.55-1.02); GLOMERULAR FILTRATION RATE > 60.0 (>51); GLUCOSE, FASTING 108 MG/DL (70-100); POTASSIUM SERUM 4.4 MEQ/L (3.5-5.1); SODIUM LEVEL 136 MEQ/L (136-145)
[2017-06-01 08:09] LABS: TRANSFERRIN 177 mg/dL (200-370)
[2017-06-01] MEDS: QUEtiapine FUMARATE 200 MG TAB PO (09:03)
[2017-06-01] MEDS: CYANOCOBALAMIN 1,000 MCG/ML VIAL (J3420) SC (09:03)
[2017-06-01] MEDS: POTASSIUM CHLORIDE 10 MEQ SR TABLET PO (09:03)
[2017-06-01] MEDS: GABAPENTIN 400 MG CAP PO ×2 (09:03→16:41)
[2017-06-01] MEDS ORDERED: OXAZEPAM 10 MG CAP PO (16:00)
== END 2017-06-01 17:03 | DRG 57 ==
LOC: M ED 03:59 → M ED INP 11:36 → M MSPAV 15:45
PROVIDERS: Family Medicine
DX: G31.2 Degeneration of nervous system due to alcohol (principal); E51.2 Wernicke's encephalopathy; F31.81 Bipolar II disorder; E87.1 Hypo-osmolality and hyponatremia; E87.6 Hypokalemia; E53.8 Deficiency of other specified B group vitamins; J44.9 Chronic obstructive pulmonary disease, unspecified; F43.10 Post-traumatic stress disorder, unspecified; F10.26 Alcohol dependence with alcohol-induced persisting amnestic disorder; F41.0 Panic disorder [episodic paroxysmal anxiety]; F17.210 Nicotine dependence, cigarettes, uncomplicated; E78.5 Hyperlipidemia, unspecified; R26.81 Unsteadiness on feet; R41.0 Disorientation, unspecified; Z85.3 Personal history of malignant neoplasm of breast; Z79.899 Other long term (current) drug therapy

== ENCOUNTER 2017-06-01 17:08 | Inpatient (IN) | payer MEDICARE ==
[2017-06-01] MEDS ORDERED: ONDANSETRON 4 MG TAB (S0181) PO (19:30)
[2017-06-01] MEDS ORDERED: traZODone 50 MG TAB PO (19:30)
[2017-06-01] MEDS ORDERED: MAALOX 30 ML SUSP *UDC PO (19:30)
[2017-06-01] MEDS ORDERED: OLANZapine ORAL DISINTEGRATING TAB 5MG PO (19:30)
[2017-06-01] MEDS ORDERED: MOM 30ML SUSPENSION UDC PO (19:30)
[2017-06-01] MEDS: QUEtiapine FUMARATE 200 MG TAB PO (20:17)
[2017-06-01] MEDS: GABAPENTIN 400 MG CAP PO (20:17)
[2017-06-02] MEDS: QUEtiapine FUMARATE 200 MG TAB PO ×2 (09:27→21:10)
[2017-06-02] MEDS: CYANOCOBALAMIN 500 MCG TAB PO (09:27)
[2017-06-02] MEDS: MULTIVITAMINS/MINERALS THERAP 1 TAB PO (09:27)
[2017-06-02] MEDS: NICOTINE 14 MG/24 HR TRANSDERMAL TD (09:27)
[2017-06-02] MEDS: FOLIC ACID 1 MG TAB PO (09:27)
[2017-06-02] MEDS: THIAMINE 100 MG TAB PO (09:27)
[2017-06-02] MEDS: GABAPENTIN 400 MG CAP PO (09:27)
[2017-06-02 10:52] LABS: CONTROL LINE HCG INT CTR LINE PRESENT; HCG, SERUM QUALITATIVE NEGATIVE (NEGATIVE)
[2017-06-02 11:07] LABS: TOTAL 25(OH) VITAMIN D 16.2 NG/ML (30.0-100.0)
[2017-06-02] MEDS: GABAPENTIN 300 MG CAP PO ×2 (17:54→21:09)
[2017-06-02] MEDS: VITAMIN D 50,000 UNITS CAPSULE (ERGOCALCIFEROL 1.25MG) PO (17:54)
[2017-06-03 07:35] LABS: HEMATOCRIT 33.6 % (36.0-47.0); HEMOGLOBIN 11.2 g/dl (12.0-16.0); MEAN CORPUSCULAR HEMOGLOBIN 31.9 pg (27.0-33.0); MEAN CORPUSCULAR HGB CONC 33.3 g/dl (32.0-36.5); MEAN CORPUSCULAR VOLUME 95.7 fl (80.0-96.0); PLATELET COUNT, AUTOMATED 564 10^3/uL (150-450); RED BLOOD COUNT 3.51 10^6/uL (4.00-5.40); RED CELL DISTRIBUTION WIDTH 16.1 % (11.5-14.5); WHITE BLOOD COUNT 7.6 10^3/uL (4.0-10.0)
[2017-06-03 07:58] LABS: ALBUMIN 2.6 GM/DL (3.2-5.2); ALBUMIN/GLOBULIN RATIO 0.57 (1.00-1.93); ALKALINE PHOSPHATASE 122 U/L (45-117); ALT/SGPT 49 U/L (12-78); ANION GAP 4 MEQ/L (8-16); AST/SGOT 31 U/L (7-37); BILIRUBIN,TOTAL 0.3 MG/DL (0.2-1.0); BLOOD UREA NITROGEN 16 MG/DL (7-18); CALCIUM LEVEL 8.5 MG/DL (8.5-10.1); CARBON DIOXIDE LEVEL 28 MEQ/L (21-32); CHLORIDE LEVEL 102 MEQ/L (98-107); CREATININE FOR GFR 0.68 MG/DL (0.55-1.02); GLOMERULAR FILTRATION RATE > 60.0 (>51); GLUCOSE, FASTING 97 MG/DL (70-100); POTASSIUM SERUM 4.8 MEQ/L (3.5-5.1); SODIUM LEVEL 134 MEQ/L (136-145); TOTAL PROTEIN 7.2 GM/DL (6.4-8.2)
[2017-06-03] MEDS: MULTIVITAMINS/MINERALS THERAP 1 TAB PO (08:05)
[2017-06-03] MEDS: CYANOCOBALAMIN 500 MCG TAB PO (08:05)
[2017-06-03] MEDS ORDERED: ALBUTEROL 90 MCG/ACT 8GM HFA INHALER As Ordered (08:05)
[2017-06-03] MEDS: FOLIC ACID 1 MG TAB PO (08:05)
[2017-06-03] MEDS: GABAPENTIN 300 MG CAP PO ×3 (08:05→20:22)
[2017-06-03] MEDS: NICOTINE 14 MG/24 HR TRANSDERMAL TD (08:06)
[2017-06-03] MEDS: THIAMINE 100 MG TAB PO (08:06)
[2017-06-03] MEDS: ALBUTEROL 90 MCG/ACT 8GM HFA INHALER INH ×2 (08:06→19:03)
[2017-06-03 09:59] LABS: HEPATITIS B SURFACE ANTIGEN NEGATIVE (NEGATIVE)
[2017-06-03 10:20] LABS: HEPATITIS C VIRUS ABY INDEX < 0.0 INDEX (<0.8)
[2017-06-03 10:21] LABS: HEPATITIS B CORE ANTIBODY IGM NEGATIVE (NEGATIVE)
[2017-06-03 10:22] LABS: HEPATITIS A ANTIBODY IGM NEGATIVE (NEGATIVE)
[2017-06-03] MEDS: QUEtiapine FUMARATE 200 MG TAB PO (20:22)
[2017-06-04] MEDS: NICOTINE 14 MG/24 HR TRANSDERMAL TD (08:24)
[2017-06-04] MEDS: FOLIC ACID 1 MG TAB PO (08:24)
[2017-06-04] MEDS: GABAPENTIN 300 MG CAP PO ×3 (08:24→21:10)
[2017-06-04] MEDS: THIAMINE 100 MG TAB PO (08:24)
[2017-06-04] MEDS: MULTIVITAMINS/MINERALS THERAP 1 TAB PO (08:24)
[2017-06-04] MEDS: CYANOCOBALAMIN 500 MCG TAB PO (08:24)
[2017-06-04] MEDS: ALBUTEROL 90 MCG/ACT 8GM HFA INHALER INH (09:14)
[2017-06-04] MEDS: QUEtiapine FUMARATE 200 MG TAB PO (21:10)
[2017-06-04] MEDS: ACETAMINOPHEN TAB 650MG DOSE (2X325MG) PO (21:11)
[2017-06-05] MEDS: ALBUTEROL 90 MCG/ACT 8GM HFA INHALER INH (09:11)
[2017-06-05] MEDS: THIAMINE 100 MG TAB PO (09:13)
[2017-06-05] MEDS: FOLIC ACID 1 MG TAB PO (09:13)
[2017-06-05] MEDS: GABAPENTIN 300 MG CAP PO ×3 (09:13→21:07)
[2017-06-05] MEDS: CYANOCOBALAMIN 500 MCG TAB PO (09:13)
[2017-06-05] MEDS: MULTIVITAMINS/MINERALS THERAP 1 TAB PO (09:13)
[2017-06-05] MEDS: NICOTINE 14 MG/24 HR TRANSDERMAL TD (09:13)
[2017-06-05] MEDS: ACETAMINOPHEN TAB 650MG DOSE (2X325MG) PO (09:14)
[2017-06-05] MEDS: QUEtiapine FUMARATE 200 MG TAB PO (21:07)
[2017-06-06] MEDS: GABAPENTIN 300 MG CAP PO ×3 (08:05→21:25)
[2017-06-06] MEDS: CYANOCOBALAMIN 500 MCG TAB PO (08:05)
[2017-06-06] MEDS: MULTIVITAMINS/MINERALS THERAP 1 TAB PO (08:06)
[2017-06-06] MEDS: FOLIC ACID 1 MG TAB PO (08:06)
[2017-06-06] MEDS: ALBUTEROL 90 MCG/ACT 8GM HFA INHALER INH (08:06)
[2017-06-06] MEDS: THIAMINE 100 MG TAB PO (08:06)
[2017-06-06] MEDS: NICOTINE 14 MG/24 HR TRANSDERMAL TD (08:06)
[2017-06-06] MEDS: QUEtiapine FUMARATE 200 MG TAB PO (21:25)
[2017-06-06] MEDS: ACETAMINOPHEN TAB 650MG DOSE (2X325MG) PO (21:27)
[2017-06-07 07:16] LABS: HEMATOCRIT 31.2 % (36.0-47.0); HEMOGLOBIN 10.1 g/dl (12.0-16.0); MEAN CORPUSCULAR HEMOGLOBIN 31.5 pg (27.0-33.0); MEAN CORPUSCULAR HGB CONC 32.4 g/dl (32.0-36.5); MEAN CORPUSCULAR VOLUME 97.2 fl (80.0-96.0); PLATELET COUNT, AUTOMATED 670 10^3/uL (150-450); RED BLOOD COUNT 3.21 10^6/uL (4.00-5.40); RED CELL DISTRIBUTION WIDTH 15.7 % (11.5-14.5); WHITE BLOOD COUNT 6.9 10^3/uL (4.0-10.0)
[2017-06-07 07:38] LABS: ALBUMIN 2.6 GM/DL (3.2-5.2); ALBUMIN/GLOBULIN RATIO 0.63 (1.00-1.93); ALKALINE PHOSPHATASE 107 U/L (45-117); ALT/SGPT 56 U/L (12-78); ANION GAP 4 MEQ/L (8-16); AST/SGOT 48 U/L (7-37); BILIRUBIN,TOTAL 0.2 MG/DL (0.2-1.0); BLOOD UREA NITROGEN 17 MG/DL (7-18); CALCIUM LEVEL 8.4 MG/DL (8.5-10.1); CARBON DIOXIDE LEVEL 30 MEQ/L (21-32); CHLORIDE LEVEL 105 MEQ/L (98-107); CREATININE FOR GFR 0.52 MG/DL (0.55-1.30); GLOMERULAR FILTRATION RATE > 60.0 (>51); GLUCOSE, FASTING 86 MG/DL (70-100); POTASSIUM SERUM 4.8 MEQ/L (3.5-5.1); SODIUM LEVEL 139 MEQ/L (136-145); TOTAL PROTEIN 6.7 GM/DL (6.4-8.2)
[2017-06-07] MEDS: FOLIC ACID 1 MG TAB PO (08:27)
[2017-06-07] MEDS: ALBUTEROL 90 MCG/ACT 8GM HFA INHALER INH (08:27)
[2017-06-07] MEDS: CYANOCOBALAMIN 500 MCG TAB PO (08:27)
[2017-06-07] MEDS: GABAPENTIN 300 MG CAP PO (08:27)
[2017-06-07] MEDS: MULTIVITAMINS/MINERALS THERAP 1 TAB PO (08:27)
[2017-06-07] MEDS: THIAMINE 100 MG TAB PO (08:27)
[2017-06-07] MEDS: NICOTINE 14 MG/24 HR TRANSDERMAL TD (08:28)
[2017-06-07] MEDS: FERROUS SULFATE 325MG TAB PO (12:10)
[2017-06-08] MEDS ORDERED: FERROUS SULFATE 325MG TAB PO (09:00)
== END 2017-06-07 14:55 | disposition home or self-care (01) | DRG 885 ==
LOC: M PSY 17:08
PROVIDERS: Psychiatry & Neurology Psychiatry
DX: F31.2 Bipolar disorder, current episode manic severe with psychotic features (principal); F14.20 Cocaine dependence, uncomplicated; F13.20 Sedative, hypnotic or anxiolytic dependence, uncomplicated; F12.20 Cannabis dependence, uncomplicated; J44.9 Chronic obstructive pulmonary disease, unspecified; F17.210 Nicotine dependence, cigarettes, uncomplicated; E78.5 Hyperlipidemia, unspecified; D64.9 Anemia, unspecified; Z85.3 Personal history of malignant neoplasm of breast; Z79.899 Other long term (current) drug therapy

== ENCOUNTER 2017-07-19 14:24 | Emergency (ER) | payer SELFPAY, MEDICAID, MEDICARE | END 2017-07-19 15:22 | disposition left against medical advice (07) | LOC: M ED 14:24 | DX: F10.129 Alcohol abuse with intoxication, unspecified (principal); J44.9 Chronic obstructive pulmonary disease, unspecified; F41.9 Anxiety disorder, unspecified; F32.9 Major depressive disorder, single episode, unspecified; F43.10 Post-traumatic stress disorder, unspecified; Z79.899 Other long term (current) drug therapy; Z53.21 Procedure and treatment not carried out due to patient leaving prior to being seen by health care provider | CPT/HCPCS: 99283 ==

== ENCOUNTER 2018-10-13 14:38 | Observation (INO) | payer MEDICARE, MEDICAID ==
[~2018-10-13] VITALS: Ht 160 cm; Wt 58.1 kg
[~2018-10-13 14:38] MED LIST changes: -/QUET10TA; +ALBU17IN INH; +ANOR1AER IN; +FOLI1TAB11 PO; +GABA600T4 PO; +GABA800T4 PO; +HYDR50CA2 PO; +KLOR10TA76 PO; +LAMO150T2 PO; +SERO1TAB; +SERO400T PO; +THIA100T7 PO; +THIA100TA PO; +VIST50CA PO; +VITA1CAP25 PO; +VITA50005 PO; +VITMTA PO
[2018-10-13 15:24] LABS: BASO # 0.1 10^3/uL (0.0-0.2); EOS # 0.2 10^3/uL (0.0-0.50); EOS % 1.7 % (0.0-3.0); HEMATOCRIT 33.9 % (36.0-47.0); HEMOGLOBIN 11.6 g/dl (12.0-15.5); LYMPH # 3.9 10^3/uL (1.5-4.5); LYMPH % 35.8 % (24.0-44.0); MEAN CORPUSCULAR HEMOGLOBIN 32.5 pg (27.0-33.0); MEAN CORPUSCULAR HGB CONC 34.2 g/dl (32.0-36.5); MONO # 0.6 10^3/uL (0.0-0.8); MONO % 5.4 % (0.0-5.0); NEUTROPHILS % 55.4 % (36.0-66.0); PLATELET COUNT, AUTOMATED 502 10^3/uL (150-450); RED BLOOD COUNT 3.57 10^6/uL (4.00-5.40); WHITE BLOOD COUNT 10.9 10^3/uL (4.0-10.0)
[2018-10-13 15:32] LABS: AMPHETAMINES LEVEL URINE NEGATIVE (NEGATIVE); BARBITURATES URINE NEGATIVE (NEGATIVE); BENZODIAZEPINES URINE NEGATIVE (NEGATIVE); CANNABINOIDS URINE POSITIVE (NEGATIVE); COCAINE METABOLITE URINE NEGATIVE (NEGATIVE); METHADONE URINE NEGATIVE (NEGATIVE); OPIATES URINE NEGATIVE (NEGATIVE); PHENCYCLIDINE URINE NEGATIVE (NEGATIVE)
[2018-10-13 15:49] LABS: ACETAMINOPHEN LEVEL < 2.0 UG/ML (10.0-30.0); ALBUMIN 2.9 GM/DL (3.2-5.2); ALT/SGPT 42 U/L (12-78); BILIRUBIN,DIRECT < 0.1 MG/DL (0.0-0.2); BILIRUBIN,TOTAL 0.2 MG/DL (0.2-1.0); BLOOD UREA NITROGEN 9 MG/DL (7-18); CALCIUM LEVEL 7.7 MG/DL (8.5-10.1); CARBON DIOXIDE LEVEL 25 MEQ/L (21-32); CHLORIDE LEVEL 99 MEQ/L (98-107); CPK CREATINE PHOSPHOKINASE 86 U/L (26-192); CREATININE FOR GFR 0.59 MG/DL (0.55-1.30); ETHYL ALCOHOL (ETHANOL) 0.279 % (0.000-0.010); GLOMERULAR FILTRATION RATE > 60.0 (>51); GLUCOSE, FASTING 95 MG/DL (70-100); SALICYLATE LEVEL 2.2 MG/DL (5.0-30.0); SODIUM LEVEL 135 MEQ/L (136-145)
[2018-10-13] MEDS ORDERED: NS 1,000 ML IV ONE (19:45)
[2018-10-13] MEDS ORDERED: HYDR50TA70 PO (20:01)
[2018-10-13] MEDS ORDERED: GABA600T4 PO (20:01)
[2018-10-13] MEDS ORDERED: VENTAER INH (20:01)
[2018-10-13] MEDS ORDERED: QUET400T PO (20:01)
[2018-10-13] MEDS ORDERED: MULTIVITAMIN -ADULT INJECTION 10 ML, THIAMINE INJection 100 MG, FOLIC ACID 1 MG in NS 1... IV ONE (20:30)
[2018-10-13] MEDS ORDERED: PHENobarbital INJ 65 MG/ML VIAL (J2560) IV STA (21:18)
[2018-10-13] MEDS ORDERED: OXAZEPAM 15 MG CAP PO SCH (22:30)
[2018-10-13] MEDS ORDERED: LORazepam 2 MG TAB PO PRN (22:30)
[2018-10-13] MEDS ORDERED: NS 1,000 ML IV SCH (22:30)
--- NOTE | 2018-10-13 22:39 | HPEPDOC ---
[facility] Medical History & Physical Date of Admission Oct 13, 2018 Date of Service: Oct 13, 2018 History and Physical CHIEF COMPLAINT: Alcohol intoxication HISTORY OF PRESENT ILLNESS: Patient is a 53-year-old female with past medical history of alcohol and drug use, bipolar, depression, PTSD, hx L. breast ca s/p mastectomy, mild COPD brought into the hospital for alcohol intoxication. Patient was noted to recently lost her boyfriend and has been drinking more than normal. She states that she has been drinking heavily for the past 10 days. However, patient does have a long history of alcohol abuse with frequent drinking and occasional binge. She was found to have elevated alcohol level on arrival. During course of observation in ER, patient was noted to become tachycardic and exhibit symptoms of withdraw. She was given phenobarbital in ER with improvement in symptoms and currently denies any complaints including chest pain, SOB, hallucinations. PAST MEDICAL HISTORY: Refer to [facility] PAST SURGICAL HISTORY: L. mastectomy SOCIAL HISTORY: Smokes 1ppd. Chronic alcohol abuse and marijuana use. FAMILY HISTORY: mother had lung cancer ALLERGIES: Please see below. REVIEW OF SYSTEMS: 10 point review of system negative except as stated in [facility] HOME MEDICATIONS: Please see below. PHYSICAL EXAMINATION: General: Alert, unkempt. psychomotor agitation, slightly tremulous. Eyes: Normal sclera, EOMI, JANICE HENT: Atraumatic, neck supple, moist mucous membranes Cardiovascular: Tachycardic, normal rhythm. Pulmonary: Clear to auscultation b/l, no wheezing GI: Soft, nontender, nondistended Skin: Warm and dry Neuro: CN grossly intact. No focal deficits. Strengths equal b/l. Psych: oriented x 3 LABORATORY DATA: See below. MICROBIOLOGY: Please see below. ASSESSMENT AND PLAN: 1. Alcohol withdraw - given banana bag in ER. - Phenobarbital given with improvement in symptoms and decrease in HR. - Will need to monitor closely, will place in ICU. - CIWA protocol. Place on standing Serax. - supplement with folate and thiamine. 2. COPD - nebs PRN. - Not in exacerbation. 3. Bioplar/Depression - Resume home meds. DVT ppx: SCD and Lovenox Code status: Full code Vital Signs Vital Signs Date Time Temp Pulse Resp B/P (MAP) Pulse Ox O2 Delivery O2 Flow Rate FiO2 10/13/18 21:53 101 96 10/13/18 21:45 140/64 (89) 10/13/18 15:27 18 10/13/18 14:54 96.4 Room Air Laboratory Data Labs 24H Laboratory Tests 2 10/13/18 14:55: Anion Gap 11, Glomerular Filtration Rate > 60.0, Calcium Level 7.7L, Aspartate Amino Transf (AST/SGOT) 49H, Alanine Aminotransferase (ALT/SGPT) 42, Alkaline Phosphatase 119H, Total Bilirubin 0.2, Direct Bilirubin < 0.1, Total Creatine Kinase 86, Total Protein 7.0, Albumin 2.9L, Albumin/Globulin Ratio 0.71L, Thyroid Stimulating Hormone (TSH) 3.290, Salicylates Level 2.2L, Urine Amphetamines Screen NEGATIVE, Urine Benzodiazepines Screen NEGATIVE, Urine Opiat es Screen NEGATIVE, Urine Methadone Screen NEGATIVE, Acetaminophen Level < 2.0L, Urine Barbiturates Screen NEGATIVE, Urine Phencyclidine Screen NEGATIVE, Urine Cocaine Metabolite Screen NEGATIVE, Urine Cannabinoids Screen POSITIVEH, Ethyl Alcohol Level 0.279H 10/13/18 15:16: Immature Granulocyte % (Auto) 0.7, White Blood Count 10.9H, Red Blood Count 3.57L, Hemoglobin 11.6L, Hematocrit 33.9L, Mean Corpuscular Volume 95.0, Mean Corpuscular Hemoglobin 32.5, Mean Corpuscular Hemoglobin Concent 34.2, Red Cell Distribution Width 15.2H, Platelet Count 502H, Neutrophils (%) (Auto) 55.4, Lymphocytes (%) (Auto) 35.8, Monocytes (%) (Auto) 5.4H, Eosinophils (%) (Auto) 1.7, Basophils (%) (Auto) 1.0, Neutrophils # (Auto) 6.0, Lymphocytes # (Auto) 3.9, Monocytes # (Auto) 0.6, Eosinophils # (Auto) 0.2, Basophils # (Auto) 0.1, Nucleated Red Blood Cells % (auto) 0.0 CBC/BMP Laboratory Tests 10/13/18 14:55 10/13/18 15:16 Red Blood Count 3.57 L, Mean Corpuscular Volume 95.0, Mean Corpuscular Hemoglobin 32.5, Mean Corpuscular Hemoglobin Concent 34.2, Red Cell Distribution Width 15.2 H, Neutrophils (%) (Auto) 55.4, Lymphocytes (%) (Auto) 35.8, Monocytes (%) (Auto) 5.4 H, Eosinophils (%) (Auto) 1.7, Basophils (%) (Auto) 1.0, Neutrophils # (Auto) 6.0, Lymphocytes # (Auto) 3.9, Monocytes # (Auto) 0.6, Eosinophils # (Auto) 0.2, Basophils # (Auto) 0.1 Home Medications Scheduled Gabapentin (Gabapentin) 600 Mg Tablet, 600 MG PO TID Quetiapine Fumarate (Quetiapine Fumarate) 400 Mg Tablet, 400 MG PO DAILY Scheduled PRN Albuterol Sulfate (Ventolin Hfa) 18 Gm Hfa.aer.ad, 2 PUFF INH Q4H PRN for wheezing Hydroxyzine HCl (Hydroxyzine HCl) 50 Mg Tablet, 50 MG PO QID PRN for ANXIETY Allergies Coded Allergies: No Known Allergies (Unverified , 10/13/18) A-FIB/CHADSVASC A-FIB History Current/History of A-Fib/PAF?: No JM VALENTIN MD Oct 13, 2018 22:39
[2018-10-13] MEDS: GABAPENTIN 300 MG CAP PO SCH (22:45)
[2018-10-13] MEDS: THIAMINE 100 MG TAB PO SCH (22:45)
[2018-10-13 23:45] VITALS: BP 142/69
[2018-10-14 04:00] VITALS: BP 136/79
[2018-10-14 05:07] LABS: HEMATOCRIT 32.7 % (36.0-47.0); HEMOGLOBIN 11.1 g/dl (12.0-15.5); MEAN CORPUSCULAR HEMOGLOBIN 32.2 pg (27.0-33.0); MEAN CORPUSCULAR HGB CONC 33.9 g/dl (32.0-36.5); MEAN CORPUSCULAR VOLUME 94.8 fl (80.0-96.0); PLATELET COUNT, AUTOMATED 492 10^3/uL (150-450); RED BLOOD COUNT 3.45 10^6/uL (4.00-5.40); WHITE BLOOD COUNT 8.1 10^3/uL (4.0-10.0)
[2018-10-14 05:28] LABS: BLOOD UREA NITROGEN 8 MG/DL (7-18); CALCIUM LEVEL 6.9 MG/DL (8.5-10.1); CARBON DIOXIDE LEVEL 25 MEQ/L (21-32); CHLORIDE LEVEL 110 MEQ/L (98-107); CREATININE FOR GFR 0.56 MG/DL (0.55-1.30); GLOMERULAR FILTRATION RATE > 60.0 (>51); GLUCOSE, FASTING 95 MG/DL (70-100); POTASSIUM SERUM 3.8 MEQ/L (3.5-5.1); SODIUM LEVEL 140 MEQ/L (136-145)
[2018-10-14 06:00] VITALS: BP 136/79
[2018-10-14 08:00] VITALS: BP 156/113
[2018-10-14] MEDS: GABAPENTIN 300 MG CAP PO SCH (08:52)
[2018-10-14] MEDS: THIAMINE 100 MG TAB PO SCH (08:53)
--- NOTE | 2018-10-14 08:59 | ECGEPIP ---
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
[2018-10-14] MEDS ORDERED: MULTIVITAMINS/MINERALS THERAP 1 TAB PO SCH (09:00)
[2018-10-14] MEDS ORDERED: ENOXAPARIN 40 MG/0.4 ML SYRINGE (J1650) SC SCH (09:00)
[2018-10-14] MEDS ORDERED: FOLIC ACID 1 MG TAB PO SCH (09:00)
[2018-10-14] MEDS ORDERED: QUEtiapine FUMARATE 200 MG TAB PO SCH (12:00)
[2018-10-14] MEDS ORDERED: THIA100TA PO (13:12)
[2018-10-14] MEDS ORDERED: FOLI1TAB11 PO (13:12)
--- NOTE | 2018-10-16 12:38 | DS.PDOC ---
Discharge Summary General Date of Admission Oct 13, 2018 at 22:37 Date of Discharge 10/14/18 Discharge Summary PROCEDURES PERFORMED DURING STAY: [None]. DISCHARGE DIAGNOSES: Alcohol intoxication followed by withdrawal in hospital COPD/Chronic bronchitis Bipolar disorder H/O breat cancer PTSD Smoker Alcoholic COMPLICATIONS/CHIEF COMPLAINT: Alcohol Dependence/Withdrawl. HISTORY OF PRESENT ILLNESS: see history and physical HOSPITAL COURSE: Patient is a 53-year-old female with past medical history of a lcohol and drug use, bipolar, depression, PTSD, hx L. breast ca s/p mastectomy, mild COPD , smoker,,brought into the hospital for alcohol intoxication. Patient was noted to recently lost her boyfriend and has been drinking more than normal. She states that she has been drinking heavily for the past 10 days. However, patient does have a long history of alcohol abuse with frequent drinking and occasional binge. She was found to have elevated alcohol level on arrival. During course of observation in ER, patient was noted to become tachycardic and exhibit symptoms of withdraw. She was given phenobarbital in ER with improvement in symptoms and currently denies any complaints Alcohol withdrawal now resolved continue folate and thiamine COPD not in exacerbation albuterol prn Bioplar/Depression seroquel DISCHARGE MEDICATIONS: Please see below. ALLERGIES: Please see below. PHYSICAL EXAMINATION ON DISCHARGE: VITAL SIGNS: Please see below. General: Alert, unkempt. psychomotor agitation, slightly tremulous. Eyes: Normal sclera, EOMI HEENT: Atraumatic, neck supple, moist mucous membranes Cardiovascular: normal rate, normal rhythm. No rub murmur or gallop Pulmonary: mild wheezing on deep expiration GI: Soft, nontender, nondistended, normal bowel sounds. Skin: Warm and dry Neuro: CN grossly intact. No focal deficits. Strengths equal b/l. Psych: oriented x 3 LABORATORY DATA: Please see below. ACTIVITY: [As tolerated]. DIET: Regular DISCHARGE PLAN: Home DISPOSITION: . DISCHARGE INSTRUCTIONS: Follow up with PMD in 2 weeks DISCHARGE CONDITION: [Stable]. TIME SPENT ON DISCHARGE: 35 minutes. Vital Signs/I&Os Vital Signs Date Time Temp Pulse Resp B/P (MAP) Pulse Ox O2 Delivery O2 Flow Rate FiO2 10/14/18 06:00 91 136/79 10/14/18 04:00 98.0 18 98 10/13/18 14:54 Room Air I&O- Last 24 Hours up to AM 10/14/18 06:00 Intake Total 960 ml Output Total 750 ml Balance 210 ml Laboratory Data Labs 24H Laboratory Tests 2 10/13/18 14:55: Anion Gap 11, Glomerular Filtration Rate > 60.0, Calcium Level 7.7L, Aspartate Amino Transf (AST/SGOT) 49H, Alanine Aminotransferase (ALT/SGPT) 42, Alkaline Phosphatase 119H, Total Bilirubin 0.2, Direct Bilirubin < 0.1, Total Creatine Kinase 86, Total Protein 7.0, Albumin 2.9L, Albumin/Globulin Ratio 0.71L, Thyroid Stimulating Hormone (TSH) 3.290, Salicylates Level 2.2L, Urine Am phetamines Screen NEGATIVE, Urine Benzodiazepines Screen NEGATIVE, Urine Opiates Screen NEGATIVE, Urine Methadone Screen NEGATIVE, Acetaminophen Level < 2.0L, Urine Barbiturates Screen NEGATIVE, Urine Phencyclidine Screen NEGATIVE, Urine Cocaine Metabolite Screen NEGATIVE, Urine Cannabinoids Screen POSITIVEH, Ethyl Alcohol Level 0.279H 10/13/18 15:16: Immature Granulocyte % (Auto) 0.7, White Blood Count 10.9H, Red Blood Count 3.57L, Hemoglobin 11.6L, Hematocrit 33.9L, Mean Corpuscular Volume 95.0, Mean Corpuscular Hemoglobin 32.5, Mean Corpuscular Hemoglobin Concent 34.2, Red Cell Distribution Width 15.2H, Platelet Count 502H, Neutrophils (%) (Auto) 55.4, Lymphocytes (%) (Auto) 35.8, Monocytes (%) (Auto) 5.4H, Eosinophils (%) (Auto) 1.7, Basophils (%) (Auto) 1.0, Neutrophils # (Auto) 6.0, Lymphocytes # (Auto) 3.9, Monocytes # (Auto) 0.6, Eosinophils # (Auto) 0.2, Basophils # (Auto) 0.1, Nucleated Red Blood Cells % (auto) 0.0 10/14/18 04:53: Anion Gap 5L, Glomerular Filtration Rate > 60.0, Calcium Level 6.9L, Nucleated Red Blood Cells % (auto) 0.0, Blood Urea Nitrogen 8, Creatinine 0.56, Sodium Level 140, Potassium Level 3.8, Chloride Level 110H, Carbon Dioxide Level 25 CBC/BMP Laboratory Tests 10/13/18 14:55 10/13/18 15:16 Red Blood Count 3.57 L, Mean Corpuscular Volume 95.0, Mean Corpuscular Hemoglobin 32.5, Mean Corpuscular Hemoglobin Concent 34.2, Red Cell Distribution Width 15.2 H, Neutrophils (%) (Auto) 55.4, Lymphocytes (%) (Auto) 35.8, Monocytes (%) (Auto) 5.4 H, Eosinophils (%) (Auto) 1.7, Basophils (%) (Auto) 1.0, Neutrophils # (Auto) 6.0, Lymphocytes # (Auto) 3.9, Monocytes # (Auto) 0.6, Eosinophils # (Auto) 0.2, Basophils # (Auto) 0.1 10/14/18 04:53 Red Blood Count 3.45 L, Mean Corpuscular Volume 94.8, Mean Corpuscular Hemoglobin 32.2, Mean Corpuscular Hemoglobin Concent 33.9, Red Cell Distribution Width 15.4 H, Calcium Level 6.9 L Discharge Medications Scheduled Folic Acid (Folic Acid) 1 Mg Tablet, 1 MG PO DAILY Gabapentin (Gabapentin) 600 Mg Tablet, 600 MG PO TID, (Reported) Quetiapine Fumarate (Quetiapine Fumarate) 400 Mg Tablet, 400 MG PO DAILY, (Reported) Thiamine Hcl (Vitamin B-1) 100 Mg Tablet, 100 MG PO BID Scheduled PRN Albuterol Sulfate (Ventolin Hfa) 18 Gm Hfa.aer.ad, 2 PUFF INH Q4H PRN for whe ezing, (Reported) Hydroxyzine HCl (Hydroxyzine HCl) 50 Mg Tablet, 50 MG PO QID PRN for ANXIETY, (Reported) Allergies Coded Allergies: No Known Allergies (Unverified , 10/13/18) SHANI MENDOZA MD Oct 14, 2018 07:56
== END 2018-10-14 13:45 | disposition home or self-care (01) ==
LOC: EDBD 14:38 → M ED 14:38 → M ED INP 22:37 → M ICU 23:35
PROVIDERS: ADMIT Student in an Organized Health Care Education/Training Program; ATTEND Student in an Organized Health Care Education/Training Program
DX: F10.230 Alcohol dependence with withdrawal, uncomplicated (principal); R00.0 Tachycardia, unspecified; J44.9 Chronic obstructive pulmonary disease, unspecified; F31.9 Bipolar disorder, unspecified; Z85.3 Personal history of malignant neoplasm of breast; F43.10 Post-traumatic stress disorder, unspecified; E78.5 Hyperlipidemia, unspecified; F17.210 Nicotine dependence, cigarettes, uncomplicated; Z90.12 Acquired absence of left breast and nipple; Z79.899 Other long term (current) drug therapy; F12.90 Cannabis use, unspecified, uncomplicated
CPT/HCPCS: 36415; 80048; 80076; 80307; 82550; 84443; 85025; 85027; 93005; 93041; 94760; 96361; 96372; 96374; 99285; G0378; G0480; J1650; J2560; J3411

== ENCOUNTER 2018-12-08 04:40 | Inpatient (IN) | payer MEDICARE, MEDICAID ==
[~2018-12-08] VITALS: Ht 165.1 cm; Wt 27.7 kg
[~2018-12-08 04:40] MED LIST changes: +HYDR50TA70 PO; +QUET400T PO; +VENTAER INH
[2018-12-08] MEDS ORDERED: NS 1,000 ML IV ONE (04:45)
[2018-12-08 05:07] LABS: BASO % 0.4 % (0.0-1.0); EOS % 0.4 % (0.0-3.0); HEMATOCRIT 32.4 % (36.0-47.0); HEMOGLOBIN 10.9 g/dl (12.0-15.5); LYMPH # 1.2 10^3/uL (1.5-4.5); LYMPH % 16.8 % (24.0-44.0); MEAN CORPUSCULAR HEMOGLOBIN 33.1 pg (27.0-33.0); MEAN CORPUSCULAR HGB CONC 33.6 g/dl (32.0-36.5); MEAN CORPUSCULAR VOLUME 98.5 fl (80.0-96.0); MONO # 0.3 10^3/uL (0.0-0.8); MONO % 4.8 % (0.0-5.0); NEUTROPHILS # 5.4 10^3/uL (1.8-7.7); PLATELET COUNT, AUTOMATED 272 10^3/uL (150-450); RED BLOOD COUNT 3.29 10^6/uL (4.00-5.40)
[2018-12-08 05:29] LABS: ALBUMIN 3.2 GM/DL (3.2-5.2); ALT/SGPT 40 U/L (12-78); BILIRUBIN,DIRECT 0.1 MG/DL (0.0-0.2); BILIRUBIN,TOTAL 0.2 MG/DL (0.2-1.0); BLOOD UREA NITROGEN 19 MG/DL (7-18); CALCIUM LEVEL 7.8 MG/DL (8.5-10.1); CARBON DIOXIDE LEVEL 24 MEQ/L (21-32); CHLORIDE LEVEL 95 MEQ/L (98-107); CK-MB VALUE MASS 4.3 NG/ML (<3.6); CPK CREATINE PHOSPHOKINASE 164 U/L (26-192); CREATININE FOR GFR 0.61 MG/DL (0.55-1.30); GLOMERULAR FILTRATION RATE > 60.0 (>51); GLUCOSE, FASTING 148 MG/DL (70-100); MB/CK RELATIVE INDEX 2.62 (< OR =4); POTASSIUM SERUM 3.3 MEQ/L (3.5-5.1); SODIUM LEVEL 133 MEQ/L (136-145); THYROID STIMULATING HORMONE 0.663 uIU/ML (0.358-3.740); TOTAL PROTEIN 7.1 GM/DL (6.4-8.2); TROPONIN I < 0.02 NG/ML (< 0.10)
[2018-12-08 05:59] LABS: ETHYL ALCOHOL (ETHANOL) 0.224 % (0.000-0.010)
[2018-12-08 06:49] LABS: AMPHETAMINES LEVEL URINE NEGATIVE (NEGATIVE); BARBITURATES URINE NEGATIVE (NEGATIVE); BENZODIAZEPINES URINE NEGATIVE (NEGATIVE); CANNABINOIDS URINE POSITIVE (NEGATIVE); COCAINE METABOLITE URINE NEGATIVE (NEGATIVE); METHADONE URINE NEGATIVE (NEGATIVE); OPIATES URINE NEGATIVE (NEGATIVE); PHENCYCLIDINE URINE NEGATIVE (NEGATIVE)
--- NOTE | 2018-12-08 07:23 | REPVR ---
EXAM: CT Head Without Contrast EXAM DATE/TIME: 12/08/2018 4:44 AM CLINICAL HISTORY: 53 years old, female; Injury or trauma; Fall; Initial encounter; Concussion / head injury; Additional info: Altered mental status TECHNIQUE: Imaging protocol: Computed tomography images of the head without contrast. Radiation optimization: All CT scans at this facility use at least one of these dose optimization techniques: automated exposure control; mA and/or kV adjustment per patient size (includes targeted exams where dose is matched to clinical indication); or iterative reconstruction. COMPARISON: CT Head without contrast 04/11/2016 5:46 PM FINDINGS: Brain: There is patchy white matter hypoattenuation with no associated mass effect. Ventricles: Normal. No ventriculomegaly. Bones/joints: Unremarkable. No acute fracture. Sinuses: Visualized sinuses are unremarkable. No fluid levels. Mastoid air cells: Visualized mastoid air cells are well aerated. No mastoid effusion. Soft tissues: Unremarkable. IMPRESSION: 1. No CT evidence of intracranial hemorrhage, mass effect or midline shift. 2. Patchy white matter hypoattenuation without mass effect presumably chronic microangiopathic changes versus demyelinating process predominantly grossly unchanged since 2016 however there is increased hypoattenuation in the left subinsular region as compared to the prior exam. If indicated MRI with diffusion-weighted images may be obtained for further evaluation. Electronically signed by: Ramo Brewster On 12/08/2018 07:23:25 AM
[2018-12-08] MEDS ORDERED: THIAMINE HCL 200 MG/2 ML VIAL (J3411) IM ONE (07:45)
--- NOTE | 2018-12-08 08:47 | REP ---
Clinical: Altered mental status. Comparison: 12/08/2018. Findings: Mediastinum and cardiac silhouette normal. Trace right basilar atelectasis. Underlying stable chronic interstitial changes. No pneumothorax. Skeletal structures intact. Left axillary node dissection. 7 mm nodule in the left upper lung zone stable compared to 2013. Impression: Cannot exclude trace right basilar atelectasis. Electronically Signed by Emmanuel Jain MD 12/08/2018 08:38 A
[2018-12-08] MEDS ORDERED: MULTIVITAMIN -ADULT INJECTION 10 ML, THIAMINE INJection 100 MG, FOLIC ACID 1 MG in NS 1... IV ONE (10:00)
[2018-12-08] MEDS ORDERED: ACETAMINOPHEN TAB 650MG DOSE (2X325MG) PO PRN (10:00)
[2018-12-08] MEDS ORDERED: MOM 30ML SUSPENSION UDC PO PRN (10:00)
[2018-12-08] MEDS ORDERED: DOCUSATE SODIUM 100 MG CAP PO PRN (10:00)
--- NOTE | 2018-12-08 11:18 | REP ---
Clinical: History of alcoholic cirrhosis. Technique: Real time tolbert scale ultrasound examination using curved array transducer. Comparison: 07/28/2012 Findings: Liver is mildly enlarged measuring 20 cm in craniocaudal length and demonstrates increased echotexture with poor through transmission suggesting fatty infiltration. No focal hepatic lesion identified. Visualized pancreas is normal. Gallbladder is unremarkable and without gallstones, wall thickening, or pericholecystic fluid. Common bile duct is chronically dilated and measures up to 9.8 mm (previously measuring 9.5 mm) . The right kidney is normal in reniform shape without hydronephrosis and measures 9.8 x 5.0 x 4.1 cm. No ascites. Impression: 1. Hepatomegaly and hepatic steatosis. 2. Chronic dilatation to the common bile duct. Electronically Signed by Emmanuel Jain MD 12/08/2018 11:10 A
--- NOTE | 2018-12-08 13:40 | HPEPDOC ---
[facility] Medical History & Physical Date of Admission Dec 08, 2018 Date of Service: Dec 08, 2018 Primary Care Physician: AMBERLY CHRISTOPHER PA-C Attending Physician: Kaveh Roque MD History and Physical CHIEF COMPLAINT: Altered mental status HISTORY OF PRESENT ILLNESS: 53-year-old female with a pertinent past medical history of bipolar disorder and alcohol abuse presented in today for altered mental status. She was brought in via EMS was called to the site by bystanders the patient face down by a toilet according to report. They noted a laceration of the bridge of the nose and some abrasions on her upper arm. The patient denies having any recollection of the events prior to presenting to the hospital. She was alert and oriented 3 to person, place and time at the time of exam but originally at initial presentation her [place] Coma Scale was 9. She states that she was living with her friend tells the last 1 month because they live in [place] versus her daughter who lives a little more [place]. She was unable to elaborate further and could not respond appropriately when asked for the review of system for she kept falling asleep during the exam, for she stated that she was tired. In the ER, her vitals were stable with oncology was within normal limits lactic acid was slightly elevated at 3.3 and potassium was 3.3. Her ammonia was within normal limits at 17. Initial POC pH was 7.27 with a PCO2 of 48.5. As time progressed her mentation and her pH improved to 7.31 as well as PCO2 to 44.1. Toxicology came back positive for cannabis and ethanol alcohol level is 0.224. CT of the head in the ER showed patchy white matter hypoattenuation without mass effect presumably chronic microangiopathic changes grossly unchanged since 2016. Hospitalist team was then called for admission for altered mental status. 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 Admits to smoking 1 ppd Hyperlipidemia h/o alcohol abuse PAST SURGICAL HISTORY: mastectomy 04/1995 Colonoscopy with polypectomy 09/18 SOCIAL HISTORY: Tobacco use: current smoker (1 ppd) ETOH: Heavy, (hx of alcohol abuse) Illicit drug use: marijuana, per chart: cocaine, xanax FAMILY HISTORY: Obtained by reviewing chart Father: alive 81 yrs Mother: 52 yrs, lung cancer Siblings: two sisters with breast cancer No known family history of CVA, [place], DM ALLERGIES: Please see below. REVIEW OF SYSTEMS: Unable to obtain entirely for the patient was denying all symptoms, and she came in AMS HOME MEDICATIONS: Please see below. PHYSICAL EXAMINATION: VITAL SIGNS: Temperature 96.7, pulse 80, respiratory rate 18, blood pressure 133/79, pulse oximetry 96% on room air. GENERAL APPEARANCE: 53-year-old female laying comfortably on the bed does not appear acute distress HEENT: Sclera icterus. Superficial contusion noted at the bridge of the nose with dried blood going down to the left cheek. Dried blood can be noted on the soft palate integument as well. No teeth or dentures. No tongue biting noted as well. Neck is supple no carotid bruit noted. CARDIOVASCULAR: Normal S1 and S2 sounds positive. No audible murmurs rubs or gallops. Regular rate and rhythm. LUNGS: Clear to bilaterally in the upper lobes. Due to lack of effort with deep inhalation cant assess the lower lobes entirely. ABDOMEN: Positive bowel sounds in all 4 quadrants, no tenderness on palpation, soft abdomen hepatomegaly. EXTREMITIES: No lower extremity edema noted. Small abrasions are noted on the arms. NEUROLOGICAL: Alert and oriented 3 (person place and time) Pupils equal round and reactive. Cranial nerves II through XII are intact. All 4 extremities spont aneous respond to stimuli. Sensation intact bilaterally in the upper and lower extremity, Reflexes 2+ bilaterally in the upper extremities. LABORATORY DATA: See below. IMAGIN12/08/[address] evidence of intracranial hemorrhage, mass effect or midline shift. 2. Patchy white matter hypoattenuation without mass effect presumably chronic microangiopathic changes versus demyelinating process predominantly grossly unchanged since 2016 however there is increased hypoattenuation in the left subinsular region as compared to the prior exam. If indicated MRI with diffusion-weighted images may be obtained for further evaluation. Chest x-ray Impression: Cannot exclude trace right basilar atelectasis. Liver ultrasound Impression: 1. Hepatomegaly and hepatic steatosis. 2. Chronic dilatation to the common bile duct. MICROBIOLOGY: Please see below. ASSESSMENT: 52-year-old female with a pertinent past medical history of bipolar disorder reported substance abuse and heavy alcohol use who was brought in for altered mental status after falling on the floor by a toilet. The minute for altered mental status should be managed with the following problems PLAN: Altered mental status - acute metabolic encephalopathy - possibly 2/2 alcohol abuse -Ethanol alcohol level in the ER 0.224 -POC pH was elevated at 7.27 initially at presentation but improved to 7.315 -Mentation is improving currently as time progressing, If does not can consider repeat ABG -start folic acid, thiamine and multivitamin -started CIWA protocol and Serax 10 mg every 6 hours for withdrawal symptoms Possible syncope / pre-syncope - likely 2/2 EtoH abuse - Will check ECHO, c/w telemetry - c/w IV fluid hydration Lactic acidemia likely secondary to high ethanol levels even though normal anion gap -Initially 3.3 improved to 2.1 -started 100 cc IV fluids Fatty liver likely secondary to alcohol abuse -Liver ultrasound: Hepatomegaly and hepatic steatosis Hx of Biopolar disorder, PTSD -Held home quetiapine and hydroxyzine due to altered mental status] -Can consider psychiatric evaluation when the patient is more lucid Alcohol abuse -Same as above Hypokalemia - s/p banana bag in the ER -Check levels in the morning History of B12 deficiency -levels only checked on Tuesday and - The patient is still here then can consider checking. DVT prophylaxis -compressions Bowl regiment -Milk of magnesium and Colace on board PT/OT -Ordered Disposition: The patient will be admitted to family medicine services under Dr. Roque. Vital Signs Vital Signs Date Time Temp Pulse Resp B/P (MAP) Pulse Ox O2 Delivery O2 Flow Rate FiO2 12/08/18 09:30 91 108/76 (87) 92 12/08/18 06:55 Room Air 12/08/18 04:55 96.7 18 Laboratory Data Labs 24H Laboratory Tests 2 12/08/18 04:50: Immature Granulocyte % (Auto) 0.6, White Blood Count 7.0, Red Blood Count 3.29L, Hemoglobin 10.9L, Hematocrit 32.4L, Mean Corpuscular Volume 98.5H, Mean Corpuscular Hemoglobin 33.1H, Mean Corpuscular Hemoglobin Concent 33.6, Red Cell Distribution Width 13.9, Platelet Count 272, Neutrophils (%) (Auto) 77.0H, Lymphocytes (%) (Auto) 16.8L, Monocytes (%) (Auto) 4.8, Eosinophils (%) (Auto) 0.4, Basophils (%) (Auto) 0.4, Neutrophils # (Auto) 5.4, Lymphocytes # (Auto) 1.2L, Monocytes # (Auto) 0.3, Eosinophils # (Auto) 0.0, Basophils # (Auto) 0.0, Nucleated Red Blood Cells % (auto) 0.0, Anion Gap 14, Glomerular Filtration Rate > 60.0, Lactic Acid Level 3.3*H, Calcium Level 7.8L, Aspartate Amino Transf (AST/SGOT) 48H, Alanine Aminotransferase (ALT/SGPT) 40, Alkaline Phosphatase 104, Total Bilirubin 0.2, Direct Bilirubin 0.1, Ammonia 17, Total Creatine Kinase 164, Creatine Kinase MB 4.3H, Creatine Kinase MB Relative Index 2.62, Troponin I < 0.02, Total Protein 7.1, Albumin 3.2, Albumin/Globulin Ratio 0.82L, Thyroid Stimulating Hormone (TSH) 0.663, Ethyl Alcohol Level 0.224H 12/08/18 05:09: POC pH (Misc Panel) 7.279L, POC Base Excess (Misc Panel) -4.0L, POC Saturated Percent O2 (Misc) 94L, POC pO2 (Misc Panel) 83.0, POC pCO2 (Misc Panel) 48.5H, POC HCO3 (Misc Panel) 22.7, POC Total CO2 (Misc Panel) 24.0 12/08/18 05:17: POC Total CO2 (Misc Panel) 23.0, POC Glucose (Misc Panel) 141H, POC Sodium (Misc Panel) 130L, POC Potassium (Misc Panel) 3.4L, POC Chloride (Misc Panel) 95L, POC Blood Urea Nitrogen (Misc Panel 19, POC Ionized Calcium (Misc Panel) 4.1L, POC Creatinine (Misc Panel) 0.9, POC Hematocrit (Misc Panel) 35.0L 12/08/18 06:08: Urine Amphetamines Screen NEGATIVE, Urine Benzodiazepines Screen NEGATIVE, Urine Opiates Screen NEGATIVE, Urine Methadone Screen NEGATIVE, Urine Barbiturates Screen NEGATIVE, Urine Phencyclidine Screen NEGATIVE, Urine Cocaine Metabolite Screen NEGATIVE, Urine Cannabinoids Screen POSITIVEH 12/08/18 06:22: POC pH (Misc Panel) 7.315L, POC Base Excess (Misc Panel) -4.0L, POC Saturated Percent O2 (Misc) 88L, POC pO2 (Misc Panel) 60.0L, POC pCO2 (Misc Panel) 44.1, P OC HCO3 (Misc Panel) 22.5, POC Total CO2 (Misc Panel) 24.0 12/08/18 09:01: Lactic Acid Followup at 4 Hours 2.1*H CBC/BMP Laboratory Tests 12/08/18 04:50 Red Blood Count 3.29 L, Mean Corpuscular Volume 98.5 H, Mean Corpuscular Hemoglobin 33.1 H, Mean Corpuscular Hemoglobin Concent 33.6, Red Cell Distribution Width 13.9, Neutrophils (%) (Auto) 77.0 H, Lymphocytes (%) (Auto) 16.8 L, Monocytes (%) (Auto) 4.8, Eosinophils (%) (Auto) 0.4, Basophils (%) (Auto) 0.4, Neutrophils # (Auto) 5.4, Lymphocytes # (Auto) 1.2 L, Monocytes # (Auto) 0.3, Eosinophils # (Auto) 0.0, Basophils # (Auto) 0.0 Microbiology Microbiology 12/08/18 Blood Culture, Received Pending 12/08/18 Blood Culture, Received Pending Home Medications Scheduled Gabapentin (Gabapentin) 600 Mg Tablet, 600 MG PO TID Quetiapine Fumarate (Quetiapine Fumarate) 400 Mg Tablet, 400 MG PO QHS Scheduled PRN Hydroxyzine HCl (Hydroxyzine HCl) 50 Mg Tablet, 50 MG PO QID PRN for ANXIETY Allergies Coded Allergies: No Known Allergies (Unverified , 10/13/18) GME ATTESTATION GME ATTESTATION My faculty preceptor for this patient encounter was physically present during the encounter and was fully available. All aspects of the patient interview, examination, medical decision making process, and medical care plan development were reviewed and approved by the faculty preceptor. The faculty preceptor is aware and concurs with the plan as stated in the body of this note and will attest to such by his/her cosignature. ATTENDING NOTE I, Dariusz Huitron, have independently examined this patient and performed my own physical exam, as well as reviewed the documentation and edited where necessary. I have discussed in detail with the resident / student the findings and plan of treatment as documented by the resident / student and edited their note. I agree with their findings and treatment plan and have edited their documentation. I will continue to follow the patient during this hospital stay. NETO SMITH DO Dec 08, 2018 13:40 DARIUSZ HUITRON MD Dec 08, 2018 15:06
--- NOTE | 2018-12-08 13:47 | REP ---
MRI BRAIN WITHOUT CONTRAST: HISTORY: Altered mental status. Comparison CT study, December 08, 2018. TECHNIQUE: Axial and sagittal imaging planes are utilized for T1- and T2-weighted scans. Sequences include spin-echo, fast spin echo, FLAIR, and diffusion weighted sequences. MRI FINDINGS: No bony calvarial lesion is seen. Craniocervical junction and upper cervical cord are unremarkable. There is no MR evidence of significant paranasal sinus disease. No intraorbital abnormality is seen. Diffusion-weighted scan show no evidence to suggest acute ischemia. There are fairly extensive bilateral periventricular and subcortical white matter T2 hyperintensity changes, consistent with chronic microvascular ischemic changes. No acute infarct or hemorrhage is seen. No extra-axial fluid collection or midline shift is observed. IMPRESSION: Extensive small vessel atherosclerotic changes in the periventricular white matter. There is no evidence of acute infarct, bleed, mass, or extra-axial fluid collection. Electronically Signed by Jack Anna MD 12/08/2018 03:48 P
[2018-12-08 14:10] VITALS: BP 147/97
[2018-12-08] MEDS: NS 1,000 ML IV SCH ×2 (14:28→23:06)
[2018-12-08] MEDS: OXAZEPAM 10 MG CAP PO SCH ×3 (14:28→23:06)
[2018-12-08 14:35] VITALS: BP 147/97
[2018-12-08] MEDS ORDERED: SLF 3 ML SYR IV PRN (14:45)
[2018-12-08 16:00] VITALS: BP 122/57
[2018-12-08 18:00] VITALS: BP 122/57
[2018-12-08 20:00] VITALS: BP 140/78
[2018-12-08] MEDS ORDERED: QUEtiapine FUMARATE 200 MG TAB PO SCH (21:00)
--- NOTE | 2018-12-08 22:21 | ECGEPIP ---
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
[2018-12-08] MEDS: SLF 3 ML SYR IV SCH (23:07)
[2018-12-09] VITALS (10 sets, daily range): BP systolic 136–171; BP diastolic 67–86
[2018-12-09] MEDS: SLF 3 ML SYR IV SCH ×3 (05:54→21:42)
[2018-12-09] MEDS: OXAZEPAM 10 MG CAP PO SCH ×4 (06:42→22:51)
[2018-12-09] MEDS: MULTIVITAMINS/MINERALS THERAP 1 TAB PO SCH (09:54)
[2018-12-09] MEDS: FOLIC ACID 1 MG TAB PO SCH (09:54)
[2018-12-09] MEDS: THIAMINE 100 MG TAB PO SCH (09:54)
[2018-12-09 11:22] LABS: ALBUMIN 2.7 GM/DL (3.2-5.2); ALT/SGPT 41 U/L (12-78); BILIRUBIN,TOTAL 0.5 MG/DL (0.2-1.0); BLOOD UREA NITROGEN 14 MG/DL (7-18); CALCIUM LEVEL 7.9 MG/DL (8.5-10.1); CARBON DIOXIDE LEVEL 28 MEQ/L (21-32); CHLORIDE LEVEL 105 MEQ/L (98-107); CREATININE FOR GFR 0.68 MG/DL (0.55-1.30); GLOMERULAR FILTRATION RATE > 60.0 (>51); GLUCOSE, FASTING 66 MG/DL (70-100); POTASSIUM SERUM 3.9 MEQ/L (3.5-5.1); SODIUM LEVEL 140 MEQ/L (136-145); TOTAL PROTEIN 5.9 GM/DL (6.4-8.2)
--- NOTE | 2018-12-09 11:45 | IPN ---
DATE: 12/09/2018 SUBJECTIVE: She is comfortable, not jittery, sleeping comfortably. She did receive 200 mg Seroquel dose last night. Her usual dose is 400, however. She does have mild resting tachycardia at 100. OBJECTIVE: She does have a mild resting tachycardia at 100, although there is no tremor. Her speech is clear. Sensorium is clear. Appropriate responses to questions. Does remember any details about she came to be admitted to the hospital. Vital signs today are remarkable only for the resting tachycardia and blood pressures have gradually risen, this morning 170/84, pulse 91, 103 earlier in the day. Even though she has no tremor she does have some evidence of hyperadrenergic state, which could be evidence of withdrawal. ASSESSMENT: Alcohol withdrawal syndrome. Alcohol abuse. History of bipolar disorder. Her past medical history includes breast cancer 1994. COPD. Continued tobacco abuse. PLAN: Will add bisoprolol 5 mg daily and cardiac selective beta roldan being preferred since she does have some COPD and respiratory history. Continue Serax. Increase Seroquel to 400 at bedtime. Anticipate discharge tomorrow. She denies suicidality. At the time of discharge we will restart her gabapentin.
[2018-12-09] MEDS: BISOPROLOL FUM 2.5 MG PER 1/2TAB PO SCH (12:45)
[2018-12-09] MEDS ORDERED: QUEtiapine FUMARATE 200 MG TAB PO SCH (21:00)
[2018-12-10 04:00] VITALS: BP 123/61
[2018-12-10 05:40] LABS: BLOOD UREA NITROGEN 11 MG/DL (7-18); CALCIUM LEVEL 8.2 MG/DL (8.5-10.1); CARBON DIOXIDE LEVEL 28 MEQ/L (21-32); CHLORIDE LEVEL 105 MEQ/L (98-107); CREATININE FOR GFR 0.58 MG/DL (0.55-1.30); GLOMERULAR FILTRATION RATE > 60.0 (>51); GLUCOSE, FASTING 76 MG/DL (70-100); POTASSIUM SERUM 3.6 MEQ/L (3.5-5.1); SODIUM LEVEL 138 MEQ/L (136-145)
[2018-12-10] MEDS: SLF 3 ML SYR IV SCH (06:40)
[2018-12-10] MEDS: OXAZEPAM 10 MG CAP PO SCH (06:40)
[2018-12-10 07:33] VITALS: BP 142/86
[2018-12-10 08:00] VITALS: BP 142/86
[2018-12-10] MEDS ORDERED: THIA100TA PO (08:46)
[2018-12-10] MEDS ORDERED: BISO5TAB5 PO (08:46)
[2018-12-10] MEDS ORDERED: QUET400T PO (08:46)
[2018-12-10] MEDS ORDERED: GABA600T4 PO (08:46)
[2018-12-10] MEDS: FOLIC ACID 1 MG TAB PO SCH (09:21)
[2018-12-10] MEDS: THIAMINE 100 MG TAB PO SCH (09:21)
[2018-12-10] MEDS: MULTIVITAMINS/MINERALS THERAP 1 TAB PO SCH (09:21)
[2018-12-10 09:22] VITALS: BP 144/86
[2018-12-10] MEDS: BISOPROLOL FUM 2.5 MG PER 1/2TAB PO SCH (09:22)
--- NOTE | 2018-12-10 14:21 | DSES ---
DATE OF ADMISSION: 12/08/2018 DATE OF DISCHARGE: 12/10/2018 REASON FOR ADMISSION: Ms. Whitten was found unresponsive leaning against a toilet by some friends, brought to the emergency department (ED) found to have evidence of alcohol intoxication with blood alcohol level was 0.224. She had a positive cannabinoids screen as well. Hemoglobin was 10.9, white count 7000. Other chemistry showed an AST of 89, ALT 41, alk phos 93, total bilirubin 0.9, calcium 7.9 and repeat 8.2. Kidney function was good with a BUN of 14 and creatinine 0.68 changed to 11 and 0.58 respectively the following day. Lactic acid was initially elevated at 3.3 and then 2.1, but she did not have other signs of sepsis. Therefore, no antibiotic treatments were rendered. She had a pH of 7.279 when initially seen, pO2 83, pCO2 48.5, improved to pH 7.315, pO2 60 and pCO2 of 44.1, approximately an hour and 13 minutes later with intervention not specified by data from the blood gas record. At this time, she is satting adequately on room air. Blood pressure 142/86, 123/61, pulse 86 and 69, oxygen saturation 96% again on room air. She has no tremor, no tremulousness. No headache and seems to be stable. She would like to be discharged. She has a court date tomorrow in another counter around mid day she affirms an intent to follow-up with some Aye Bhatt whom she had seen not quite 3 years ago for outpatient care. She does have a diagnosis of bipolar disorder. Her weight has varied from this admission from 54.2 kg and then overnight she magically gained 12.4 kg and then she measures supposedly 27.7 kg on today's weight on the day of discharge. I frankly find very little of these measurements believable and wonder what we are to make of all this other than data processing systems project planner error or perhaps just gross inaccuracy. DISCHARGE DIAGNOSES: 1. Acute alcohol intoxication with transient hypercarbic respiratory failure which has resolved. 2. Chronic alcohol abuse. 3. Alcoholism. 4. Bipolar affective disorder. MRI showed extensive small vessel atherosclerotic changes in the periventricular white matter. No stroke. No indications of hypoxic encephalopathy. 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 She did receive thiamine during her hospital stay. ADDITIONAL DIAGNOSES: Hypertension. Acute alcohol withdrawal syndrome with autonomic signs of hypertension and tachycardia. PLAN: Discharge today on bisoprolol 2.5 mg daily. She will resume her usual gabapentin 600 mg t.i.d., Seroquel 400 mg at bedtime and she has been prescribed presumably by her psychiatrist hydroxyzine 50 mg t.i.d. She was warned clearly that she should not drink with gabapentin, Seroquel or hydroxyzine because of hazard related to synergistic sedation. Offered information on how to get connected to [facility] behavioral health and substance abuse treatment programs. She will follow up with Aye Arcos in 1 week. Activity and diet as tolerated. Cautioned not to drink. Encouraged to quit smoking.
== END 2018-12-10 11:03 | disposition home or self-care (01) | DRG 896 ==
LOC: M ED 04:40 → M ED INP 06:06 → UNDOADMIN 06:06 → M ED INP 10:25 → M PCU 14:12
PROVIDERS: ADMIT Internal Medicine; ATTEND Family Medicine
DX: F10.232 Alcohol dependence with withdrawal with perceptual disturbance (principal); J96.92 Respiratory failure, unspecified with hypercapnia; E87.2 Acidosis; F31.9 Bipolar disorder, unspecified; F43.10 Post-traumatic stress disorder, unspecified; F10.229 Alcohol dependence with intoxication, unspecified; F90.9 Attention-deficit hyperactivity disorder, unspecified type; Z85.3 Personal history of malignant neoplasm of breast; J44.9 Chronic obstructive pulmonary disease, unspecified; F17.200 Nicotine dependence, unspecified, uncomplicated; E78.5 Hyperlipidemia, unspecified; K70.0 Alcoholic fatty liver; E87.6 Hypokalemia; E53.8 Deficiency of other specified B group vitamins; Z79.899 Other long term (current) drug therapy

== ENCOUNTER 2019-06-30 21:53 | Emergency (ER) | payer MEDICARE, MEDICAID ==
[~2019-06-30 21:53] MED LIST changes: +BISO5TAB14 PO; -LAMO150T2 PO; +LAMO150T3 PO
[2019-06-30] MEDS ORDERED: NS 1,000 ML IV ONE (22:15)
[2019-06-30] MEDS ORDERED: LORazepam 2 MG/ML VIAL (J2060) IM ONE (22:30)
[2019-06-30 23:01] LABS: BASO # 0.1 10^3/uL (0.0-0.2); BASO % 0.5 % (0.0-1.0); EOS # 0.3 10^3/uL (0.0-0.5); EOS % 2.7 % (0.0-3.0); HEMATOCRIT 35.7 % (36.0-47.0); LYMPH # 3.6 10^3/uL (1.5-5.0); LYMPH % 39.3 % (24.0-44.0); MEAN CORPUSCULAR HEMOGLOBIN 31.9 pg (27.0-33.0); MEAN CORPUSCULAR HGB CONC 33.6 g/dl (32.0-36.5); MEAN CORPUSCULAR VOLUME 94.9 fl (80.0-96.0); MONO # 0.7 10^3/uL (0.0-0.8); NEUTROPHILS # 4.7 10^3/uL (1.5-8.5); NEUTROPHILS % 50.2 % (36.0-66.0); PLATELET COUNT, AUTOMATED 344 10^3/uL (150-450); RED BLOOD COUNT 3.76 10^6/uL (4.00-5.40); WHITE BLOOD COUNT 9.3 10^3/uL (4.0-10.0)
[2019-06-30 23:41] LABS: AMPHETAMINES LEVEL URINE NEGATIVE (NEGATIVE); BARBITURATES URINE NEGATIVE (NEGATIVE); BENZODIAZEPINES URINE NEGATIVE (NEGATIVE); CANNABINOIDS URINE NEGATIVE (NEGATIVE); COCAINE METABOLITE URINE POSITIVE (NEGATIVE); METHADONE URINE NEGATIVE (NEGATIVE); OPIATES URINE NEGATIVE (NEGATIVE); PHENCYCLIDINE URINE NEGATIVE (NEGATIVE)
[2019-06-30 23:53] LABS: ACETAMINOPHEN LEVEL < 2.0 UG/ML (10.0-30.0); ALBUMIN 3.7 GM/DL (3.2-5.2); ALT/SGPT 21 U/L (12-78); BILIRUBIN,DIRECT 0.1 MG/DL (0.0-0.2); BILIRUBIN,TOTAL 0.2 MG/DL (0.2-1.0); BLOOD UREA NITROGEN 10 MG/DL (7-18); CARBON DIOXIDE LEVEL 22 MEQ/L (21-32); CHLORIDE LEVEL 103 MEQ/L (98-107); CK-MB VALUE MASS 3.9 NG/ML (<3.6); CPK CREATINE PHOSPHOKINASE 199 U/L (26-192); ETHYL ALCOHOL (ETHANOL) 0.325 % (0.000-0.010); GLOMERULAR FILTRATION RATE > 60.0 (>51); GLUCOSE, FASTING 96 MG/DL (70-100); MB/CK RELATIVE INDEX 1.96 (< OR =4); POTASSIUM SERUM 3.9 MEQ/L (3.5-5.1); SALICYLATE LEVEL 3.6 MG/DL (5.0-30.0); SODIUM LEVEL 136 MEQ/L (136-145); TOTAL PROTEIN 7.3 GM/DL (6.4-8.2); TROPONIN I < 0.02 NG/ML (< 0.10)
--- NOTE | 2019-07-01 01:10 | REPVR ---
PROCEDURE INFORMATION: Exam: CT Head Without Contrast Exam date and time: 07/01/2019 12:48 AM Age: 54 years old Clinical indication: Altered mental status/memory loss; Confusion or disorientation; Additional info: AMS, possible fall down stairs TECHNIQUE: Imaging protocol: Computed tomography of the head without contrast. Axial and coronal reformatted images were created and reviewed. Radiation optimization: All CT scans at this facility use at least one of these dose optimization techniques: automated exposure control; mA and/or kV adjustment per patient size (includes targeted exams where dose is matched to clinical indication); or iterative reconstruction. COMPARISON: CT Head without contrast 12/08/2018 6:38 AM FINDINGS: Brain: Patchy areas of hypoattenuation in the periventricular and subcortical white matter, consistent with chronic small vessel ischemic disease. No CT evidence of acute intracranial hemorrhage or acute territorial infarction. No significant mass effect or midline shift. Basal cisterns patent. Ventricles: Axial, coronal and sagittal reformatted images were created and reviewed. Bones/joints: No acute osseous abnormality. Mild chronic deformity of the left lamina papyracea. Sinuses: Mild left anterior ethmoid and inferior frontal sinus mucosal thickening. Mastoid air cells: Mild dependent opacification of the left mastoid air cells. Soft tissues: Grossly unremarkable. Vasculature: Calcific atherosclerotic disease in the cavernous internal carotid arteries. IMPRESSION: 1. No CT evidence of acute intracranial pathology. 2. Additional findings, as above. Electronically signed by: Teodoro Umana On 07/01/2019 01:10:04 AM
[2019-07-01] MEDS ORDERED: NS 1,000 ML IV ONE (01:15)
--- NOTE | 2019-07-01 01:17 | REPVR ---
PROCEDURE INFORMATION: Exam: CT Cervical Spine Without Contrast Exam date and time: 07/01/2019 12:48 AM Age: 54 years old Clinical indication: Other: AMS; Additional info: AMS, possible fall down stairs TECHNIQUE: Imaging protocol: Computed tomography images of the cervical spine without contrast. Axial, coronal and sagittal reformatted images were created and reviewed. Radiation optimization: All CT scans at this facility use at least one of these dose optimization techniques: automated exposure control; mA and/or kV adjustment per patient size (includes targeted exams where dose is matched to clinical indication); or iterative reconstruction. COMPARISON: No relevant prior studies available. FINDINGS: Vertebrae: Osteopenia. Mild reversal of the normal cervical lordosis cervical lordosis. Mild anterolisthesis of C3 on C4 and retrolisthesis of C5 on C6. Alignment otherwise anatomic. Congenital nonunion of the C1 posterior arch. No CT evidence of acute fracture, dislocation or subluxation. Vertebral body heights maintained. Discs/Spinal canal/Neural foramina: Multilevel degenerative changes, characterized by disc space narrowing, osteophytosis and uncovertebral and facet joint hypertrophy. Mild resultant multilevel spinal canal and neural foraminal narrowing. Soft tissues: Grossly unremarkable. Lungs: Biapical pleural thickening and paraseptal emphysematous change. IMPRESSION: 1. No CT evidence of acute cervical spine traumatic injury. 2. Additional findings, as above. Electronically signed by: Teodoro Umana On 07/01/2019 01:16:55 AM
[2019-07-01] MEDS ORDERED: THIAMINE 200MG/2ML VIAL (J3411 PER 100MG) IV ONE (04:00)
[2019-07-01 04:16] LABS: ACETONE/KETONE 1.76 MG/DL (<2.81)
[2019-07-01] MEDS ORDERED: LORazepam 2 MG TAB PO PRN (07:45)
--- NOTE | 2019-07-01 08:33 | REP ---
Portable chest, 57 p.m., single AP view with the patient semi upright: Comparison is 12/08/2018. There are no acute infiltrates or pleural effusions. There is chronic mild interstitial coarsening, unchanged. There is a stable 7 mm nodule in the left upper lobe. There are surgical clips in the left axilla, unchanged. Cardiac size is normal. The yosef, mediastinum, skeletal structures are unremarkable. Impression: There are chronic findings as described. There are no acute cardiopulmonary changes. Electronically Signed by Patricio Page MD 07/01/2019 08:24 A
[2019-07-01] MEDS ORDERED: THIAMINE 100 MG TAB PO SCH (09:00)
[2019-07-01] MEDS ORDERED: FOLIC ACID 1 MG TAB PO SCH (09:00)
[2019-07-01] MEDS ORDERED: MULTIVITAMINS/MINERALS THERAP 1 TAB PO SCH (09:00)
[2019-07-01 12:30] VITALS: BP 133/65
--- NOTE | 2019-07-01 20:55 | ECGEPIP ---
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
== END 2019-07-01 15:22 | disposition home or self-care (01) ==
LOC: EDBD 21:53 → M ED 21:53
DX: F10.129 Alcohol abuse with intoxication, unspecified (principal); Y90.1 Blood alcohol level of 20-39 mg/100 ml; Z79.899 Other long term (current) drug therapy
CPT/HCPCS: 36415; 36600; 51701; 70450; 71045; 72125; 80048; 80076; 80307; 82010; 82140; 82550; 82553; 82803; 83605; 84443; 84484; 85025; 93005; 93041; 94760; 96361; 96372; 96374; 99285; G0480; J2060; J3411

== ENCOUNTER 2019-08-01 13:19 | Emergency (ER) | payer MEDICARE, MEDICAID ==
[~2019-08-01] VITALS: Ht 160 cm; Wt 64.8 kg
[2019-08-01 13:20] VITALS: BP 173/101
[2019-08-01] MEDS ORDERED: VIVI380I SQ (13:25)
[2019-08-01] MEDS ORDERED: ELIM5CRE2 TOP (13:45)
== END 2019-08-01 14:00 | disposition home or self-care (01) ==
LOC: M ED 13:19
DX: B86 Scabies (principal); J44.9 Chronic obstructive pulmonary disease, unspecified; F41.9 Anxiety disorder, unspecified; F32.9 Major depressive disorder, single episode, unspecified; M54.9 Dorsalgia, unspecified; F17.200 Nicotine dependence, unspecified, uncomplicated; Z79.899 Other long term (current) drug therapy

== ENCOUNTER 2019-09-23 19:11 | Emergency (ER) | payer MEDICAID, MEDICARE ==
[~2019-09-23 19:11] MED LIST changes: +ELIM5CRE2 TOP; +VIVI380I SQ
[2019-09-23] MEDS ORDERED: diphenhydrAMINE 50MG/ML VIAL (J1200) IM STA (19:43)
[2019-09-23] MEDS ORDERED: HALOPERIDOL 5MG/ML VIAL (J1630 PER 1) IM STA (19:43)
[2019-09-23] MEDS ORDERED: HALOPERIDOL 5MG/ML VIAL (J1630 PER 1) IM ONE (20:15)
[2019-09-23] MEDS ORDERED: diphenhydrAMINE 50MG/ML VIAL (J1200) IM ONE (20:15)
[2019-09-24 01:38] VITALS: BP 93/54
== END 2019-09-24 02:18 | disposition left against medical advice (07) ==
LOC: EDBD 19:11 → M ED 19:11
DX: F10.129 Alcohol abuse with intoxication, unspecified (principal); Y90.1 Blood alcohol level of 20-39 mg/100 ml; Z79.899 Other long term (current) drug therapy
CPT/HCPCS: 36415; 96372; 99285; G0480; J1200; J1630

== ENCOUNTER 2019-10-04 18:04 | Emergency (ER) | payer MEDICARE ==
[~2019-10-04] VITALS: Ht 160 cm; Wt 61.8 kg
--- NOTE | 2019-10-04 18:52 | REPVR ---
PROCEDURE INFORMATION: Exam: CT Head Without Contrast Exam date and time: 10/04/2019 6:38 PM Age: 54 years old Clinical indication: Altered mental status/memory loss TECHNIQUE: Imaging protocol: Computed tomography of the head without contrast. Axial and coronal reformatted images were created and reviewed. Radiation optimization: All CT scans at this facility use at least one of these dose optimization techniques: automated exposure control; mA and/or kV adjustment per patient size (includes targeted exams where dose is matched to clinical indication); or iterative reconstruction. COMPARISON: CT Head without contrast 07/01/2019 12:35 AM FINDINGS: Brain: Patchy areas of hypoattenuation in the periventricular and subcortical white matter, consistent with chronic small vessel ischemic disease. Focal, well-circumscribed hypodensities in the basal ganglia, consistent with chronic lacunar infarcts. No CT evidence of acute intracranial hemorrhage or acute territorial infarction. No significant mass effect or midline shift. Basal cisterns patent. Ventricles: Prominence of the cortical sulci, cisterns and ventricular system, consistent with cerebral and cerebellar volume loss. Bones/joints: No acute osseous abnormality. Sinuses: Minimal ethmoid mucosal thickening. Mastoid air cells: Minimal opacification and sclerosis of the left mastoid air cells. Vasculature: Calcific atherosclerotic disease in the cavernous internal carotid arteries. Soft tissues: Grossly unremarkable. IMPRESSION: 1. No CT evidence of acute intracranial pathology. 2. Additional findings, as above. Electronically signed by: Teodoro Umana On 10/04/2019 18:52:29 PM
[2019-10-04 19:02] LABS: BASO % 0.1 % (0.0-1.0); EOS # 0.1 10^3/uL (0.0-0.5); HEMATOCRIT 32.5 % (36.0-47.0); HEMOGLOBIN 11.1 g/dl (12.0-15.5); LYMPH # 1.5 10^3/uL (1.5-5.0); LYMPH % 21.9 % (24.0-44.0); MEAN CORPUSCULAR HEMOGLOBIN 33.1 pg (27.0-33.0); MEAN CORPUSCULAR HGB CONC 34.2 g/dl (32.0-36.5); MONO # 0.6 10^3/uL (0.0-0.8); MONO % 8.2 % (0.0-5.0); NEUTROPHILS # 4.6 10^3/uL (1.5-8.5); NEUTROPHILS % 67.4 % (36.0-66.0); PLATELET COUNT, AUTOMATED 163 10^3/uL (150-450); RED BLOOD COUNT 3.35 10^6/uL (4.00-5.40); WHITE BLOOD COUNT 6.9 10^3/uL (4.0-10.0)
[2019-10-04 19:15] VITALS: BP 109/68
[2019-10-04 19:27] LABS: VENOUS HCO3 21.9 MEQ/L (23.0-27.0); VENOUS O2 SATURATION 98.1 % (60.0-80.0); VENOUS PARTIAL PRESSURE CO2 34.6 mmHg (38.0-50.0); VENOUS PARTIAL PRESSURE O2 119.6 mmHg (30.0-50.0); VENOUS PH 7.419 UNITS (7.330-7.430); VENOUS STANDARD HCO3 22.8 MEQ/L
[2019-10-04 19:42] LABS: ACETAMINOPHEN LEVEL 18.6 UG/ML (10.0-30.0); ALBUMIN 3.3 GM/DL (3.2-5.2); ALT/SGPT 25 U/L (12-78); BILIRUBIN,DIRECT < 0.1 MG/DL (0.0-0.2); BILIRUBIN,TOTAL 0.4 MG/DL (0.2-1.0); BLOOD UREA NITROGEN 11 MG/DL (7-18); CALCIUM LEVEL 8.4 MG/DL (8.5-10.1); CARBON DIOXIDE LEVEL 22 MEQ/L (21-32); CHLORIDE LEVEL 107 MEQ/L (98-107); CK-MB VALUE MASS 1.3 NG/ML (<3.6); CPK CREATINE PHOSPHOKINASE 127 U/L (26-192); CREATININE FOR GFR 0.92 MG/DL (0.55-1.30); ETHYL ALCOHOL (ETHANOL) < 0.003 % (0.000-0.010); GLOMERULAR FILTRATION RATE > 60.0 (>51); GLUCOSE, FASTING 119 MG/DL (70-100); MB/CK RELATIVE INDEX 1.02 (< OR =4); POTASSIUM SERUM 3.5 MEQ/L (3.5-5.1); SALICYLATE LEVEL 3.2 MG/DL (5.0-30.0); SODIUM LEVEL 142 MEQ/L (136-145); TOTAL PROTEIN 6.7 GM/DL (6.4-8.2); TROPONIN I < 0.02 NG/ML (< 0.10)
--- NOTE | 2019-10-04 21:01 | REP ---
Clinical: Altered mental status . Comparison: 06/30/2019 . Findings: The mediastinum and cardiac silhouette are stable and within normal limits for portable technique. The lung hunter are clear without acute consolidation, effusion, or pneumothorax. Stable 5 mm calcified nodule in the left upper lobe. Skeletal structures are intact. Evidence of prior left axillary node dissection and left mastectomy. Impression: No acute cardiopulmonary process appreciated. Electronically Signed by Emmanuel Jain MD 10/04/2019 08:53 P
--- NOTE | 2019-10-04 21:17 | ECGEPIP ---
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
== END 2019-10-04 20:14 | disposition home or self-care (01) ==
LOC: M ED 18:04
DX: F43.20 Adjustment disorder, unspecified (principal); J44.9 Chronic obstructive pulmonary disease, unspecified; Z79.899 Other long term (current) drug therapy
CPT/HCPCS: 36415; 70450; 71045; 80048; 80076; 81001; 82140; 82550; 82553; 82803; 83605; 84443; 84484; 85025; 87088; 87186; 93005; 93041; 99285; G0480

== ENCOUNTER → 2019-11-21 | Outpatient (CLI) | payer MEDICARE, MEDICAID ==
[2019-11-21 13:30] LABS: BASO # 0.1 10^3/uL (0.0-0.2); BASO % 0.8 % (0.0-1.0); EOS # 0.4 10^3/uL (0.0-0.5); EOS % 5.3 % (0.0-3.0); HEMATOCRIT 43.2 % (36.0-47.0); HEMOGLOBIN 14.5 g/dl (12.0-15.5); LYMPH # 2.6 10^3/uL (1.5-5.0); LYMPH % 33.1 % (24.0-44.0); MEAN CORPUSCULAR HEMOGLOBIN 32.3 pg (27.0-33.0); MEAN CORPUSCULAR HGB CONC 33.6 g/dl (32.0-36.5); MEAN CORPUSCULAR VOLUME 96.2 fl (80.0-96.0); MONO # 0.5 10^3/uL (0.0-0.8); MONO % 6.7 % (0.0-5.0); NEUTROPHILS # 4.3 10^3/uL (1.5-8.5); NEUTROPHILS % 53.8 % (36.0-66.0); PLATELET COUNT, AUTOMATED 386 10^3/uL (150-450); RED BLOOD COUNT 4.49 10^6/uL (4.00-5.40); WHITE BLOOD COUNT 7.9 10^3/uL (4.0-10.0)
[2019-11-21 14:07] LABS: ALBUMIN 4.2 GM/DL (3.2-5.2); ALT/SGPT 21 U/L (12-78); BILIRUBIN,TOTAL 0.4 MG/DL (0.2-1.0); BLOOD UREA NITROGEN 16 MG/DL (7-18); CALCIUM LEVEL 9.5 MG/DL (8.5-10.1); CARBON DIOXIDE LEVEL 26 MEQ/L (21-32); CHLORIDE LEVEL 103 MEQ/L (98-107); CHOLESTEROL LEVEL 318 MG/DL (<200); CHOLESTEROL RISK RATIO 3.419 (<5); CREATININE FOR GFR 0.83 MG/DL (0.55-1.30); FREE THYROXINE INDEX 1.6 % (1.3-4.8); GLOMERULAR FILTRATION RATE > 60.0 (>51); GLUCOSE, FASTING 92 MG/DL (70-100); HDL CHOLESTEROL 93 MG/DL (>40); LDL CHOLESTEROL 199 MG/DL (<100); NON-HDL-C 225 MG/DL; POTASSIUM SERUM 4.5 MEQ/L (3.5-5.1); SODIUM LEVEL 137 MEQ/L (136-145); T UPTAKE 29 % (30-39); THYROXINE (T4) 5.4 UG/DL (4.5-12.0); TOTAL PROTEIN 8.2 GM/DL (6.4-8.2); TRIGLYCERIDES LEVEL 129 MG/DL (<150)
--- NOTE | 2019-11-22 14:58 | ECGEPIP ---
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 Low limb voltages with slow precordial R wave progression and minuscule inferior Q Q waves; body habitus versus pulmonary disease. Slower rate but otherwise unchanged from 10/04/19 Electronically Signed on 11-22-2019 14:57:44 EDT by Jarrett Navarrete
[2019-11-24 14:08] LABS: QUETIAPINE LEVEL (SEROQUEL) 67 ng/ml (.)
== END ==
LOC: M LAB 12:02
PROVIDERS: ATTEND Nurse Practitioner Psychiatric/Mental Health
DX: F31.89 Other bipolar disorder (principal); Z51.81 Encounter for therapeutic drug level monitoring; Z79.899 Other long term (current) drug therapy
CPT/HCPCS: 36415; 80053; 80061; 80307; 84436; 84443; 84479; 85025; 93005; G0480

== ENCOUNTER → 2020-11-24 | Outpatient (REF) | payer MEDICARE, OTHER | LOC: M SFHCADAM 16:08 | PROVIDERS: ATTEND Family Medicine | DX: R30.0 Dysuria (principal) | CPT/HCPCS: 87086; G0463 ==

== ENCOUNTER → 2020-12-09 | Outpatient (REF) | payer MEDICARE, OTHER ==
[~2020-12-09] MED LIST changes: -QUET400T PO; +QUET400T2 PO
[2020-12-09 14:03] LABS: APPEARANCE, URINE CLOUDY (CLEAR); BACTERIA, URINE AUTO 2+ (NEGATIVE); BILIRUBIN, URINE AUTO NEGATIVE (NEGATIVE); BLOOD, URINE BLOOD 1+ (NEGATIVE); COLOR, URINE YELLOW (YELLOW); GLUCOSE, URINE (UA) AUTO NEGATIVE (NEGATIVE); KETONE, URINE AUTO NEGATIVE (NEGATIVE); LEUKOCYTE ESTERASE, URINE AUTO 3+ (NEGATIVE); MUCUS, URINE SMALL (NEGATIVE); NITRITE, URINE AUTO NEGATIVE (NEGATIVE); PROTEIN, URINE AUTO 1+ mg/dL (NEGATIVE); RBC, URINE AUTO 4 /HPF (0-3); SPECIFIC GRAVITY URINE AUTO 1.006 (1.002-1.035); SQUAMOUS EPITHELIAL CELL UR AU 3 /HPF (0-6); UROBILINOGEN, URINE AUTO 0.2 mg/dL (0.0-2.0); WBC, URINE AUTO TNTC /HPF (0-3)
== END ==
LOC: M SFHCADAM 09:50
PROVIDERS: ATTEND Family Medicine
DX: R30.0 Dysuria (principal)

== ENCOUNTER 2020-12-16 12:10 | Emergency (ER) | payer MEDICARE, OTHER ==
[~2020-12-16] VITALS: Ht 167.6 cm; Wt 64.1 kg
[2020-12-16] MEDS ORDERED: LORazepam 2 MG/ML VIAL IV STA (12:20)
[2020-12-16] MEDS ORDERED: MULTIVITAMIN -ADULT INJECTION 10 ML, THIAMINE INJection 100 MG, FOLIC ACID 1 MG in NS 1... IV ONE (12:20)
[2020-12-16 12:54] LABS: HEMATOCRIT 36.8 % (36.0-47.0); HEMOGLOBIN 12.4 g/dl (12.0-15.5); MEAN CORPUSCULAR HEMOGLOBIN 31.5 pg (27.0-33.0); MEAN CORPUSCULAR HGB CONC 33.7 g/dl (32.0-36.5); MEAN CORPUSCULAR VOLUME 93.4 fl (80.0-96.0); PLATELET COUNT, AUTOMATED 370 10^3/uL (150-450); RED BLOOD COUNT 3.94 10^6/uL (4.00-5.40); WHITE BLOOD COUNT 8.8 10^3/uL (4.0-10.0)
[2020-12-16 13:13] LABS: ACETAMINOPHEN LEVEL < 2.0 UG/ML (10.0-30.0); ALBUMIN 3.8 GM/DL (3.2-5.2); ALT/SGPT 22 U/L (12-78); BILIRUBIN,DIRECT 0.1 MG/DL (0.0-0.2); BILIRUBIN,TOTAL 0.5 MG/DL (0.2-1.0); BLOOD UREA NITROGEN 16 MG/DL (7-18); CALCIUM LEVEL 7.8 MG/DL (8.5-10.1); CARBON DIOXIDE LEVEL 27 MEQ/L (21-32); CHLORIDE LEVEL 106 MEQ/L (98-107); CREATININE FOR GFR 0.58 MG/DL (0.55-1.30); ETHYL ALCOHOL (ETHANOL) 0.421 % (0.000-0.010); GLOMERULAR FILTRATION RATE > 60.0 (>51); GLUCOSE, FASTING 118 MG/DL (70-100); POTASSIUM SERUM 4.1 MEQ/L (3.5-5.1); SALICYLATE LEVEL 3.7 MG/DL (5.0-30.0); SODIUM LEVEL 140 MEQ/L (136-145); TOTAL PROTEIN 7.1 GM/DL (6.4-8.2)
[2020-12-16 13:13] LABS: AMPHETAMINES LEVEL URINE POSITIVE (NEGATIVE); BARBITURATES URINE NEGATIVE (NEGATIVE); BENZODIAZEPINES URINE NEGATIVE (NEGATIVE); CANNABINOIDS URINE POSITIVE (NEGATIVE); COCAINE METABOLITE URINE NEGATIVE (NEGATIVE); METHADONE URINE NEGATIVE (NEGATIVE); OPIATES URINE NEGATIVE (NEGATIVE); PHENCYCLIDINE URINE NEGATIVE (NEGATIVE)
[2020-12-16 17:06] VITALS: BP 140/76
== END 2020-12-16 17:36 | disposition home or self-care (01) ==
LOC: M ED 12:10 → EDBD 12:10 → M ED 17:36
DX: F10.129 Alcohol abuse with intoxication, unspecified (principal); Z78.1 Physical restraint status; F17.210 Nicotine dependence, cigarettes, uncomplicated; Z79.899 Other long term (current) drug therapy
CPT/HCPCS: 80048; 80076; 80143; 80307; 82077; 84443; 85027; 96365; 96366; 96375; 99285; J2060; J3411

== ENCOUNTER 2021-04-23 12:31 | Emergency (ER) | payer MEDICAID, MEDICARE ==
[~2021-04-23] VITALS: Ht 162.6 cm; Wt 55.4 kg
[2021-04-23 12:31] VITALS: BP 134/66
[~2021-04-23 12:31] MED LIST changes: -KLOR10TA76 PO; +POTA-136 PO
[2021-04-23] MEDS ORDERED: QUET300T2 (12:43)
[2021-04-23] MEDS ORDERED: ALBU8.5H (12:43)
[2021-04-23] MEDS ORDERED: NS 1,000 ML IV ONE (14:45)
[2021-04-23 16:10] LABS: BASO % 0.4 % (0.0-1.0); EOS # 0.1 10^3/uL (0.0-0.5); EOS % 1.6 % (0.0-3.0); HEMATOCRIT 39.2 % (36.0-47.0); HEMOGLOBIN 13.4 g/dl (12.0-15.5); LYMPH # 2.4 10^3/uL (1.5-5.0); LYMPH % 34.7 % (24.0-44.0); MEAN CORPUSCULAR HEMOGLOBIN 32.4 pg (27.0-33.0); MEAN CORPUSCULAR HGB CONC 34.2 g/dl (32.0-36.5); MEAN CORPUSCULAR VOLUME 94.9 fl (80.0-96.0); MONO % 15.2 % (2.0-8.0); NEUTROPHILS # 3.2 10^3/uL (1.5-8.5); NEUTROPHILS % 47.2 % (36.0-66.0); PLATELET COUNT, AUTOMATED 374 10^3/uL (150-450); RED BLOOD COUNT 4.13 10^6/uL (4.00-5.40); WHITE BLOOD COUNT 6.8 10^3/uL (4.0-10.0)
[2021-04-23 16:24] LABS: ALBUMIN 2.9 GM/DL (3.2-5.2); ALT/SGPT 69 U/L (12-78); BILIRUBIN,TOTAL 0.7 MG/DL (0.2-1.0); BLOOD UREA NITROGEN 14 MG/DL (7-18); CALCIUM LEVEL 8.9 MG/DL (8.5-10.1); CARBON DIOXIDE LEVEL 26 MEQ/L (21-32); CHLORIDE LEVEL 97 MEQ/L (98-107); CREATININE FOR GFR 0.81 MG/DL (0.55-1.30); ETHYL ALCOHOL (ETHANOL) < 0.003 % (0.000-0.010); GLOMERULAR FILTRATION RATE > 60.0 (>51); GLUCOSE, FASTING 84 MG/DL (70-100); NT-PRO BNP 342 PG/ML (<125); POTASSIUM SERUM 3.6 MEQ/L (3.5-5.1); SODIUM LEVEL 132 MEQ/L (136-145); TOTAL PROTEIN 6.7 GM/DL (6.4-8.2)
[2021-04-23] MEDS ORDERED: ISOVUE-370 76% 100ML VIAL As Ordered ONE (16:31)
[2021-04-23] MEDS ORDERED: DOXYCYCLINE HYCLATE 100 MG in D5W MINI-BAG PLUS 100 ML IV ONE (17:35)
[2021-04-23] MEDS ORDERED: SERO1TAB2 PO ×2 (17:36→18:01)
[2021-04-23] MEDS ORDERED: NEUR600T PO (17:37)
[2021-04-23] MEDS ORDERED: AUGM875T28 PO ×3 (17:41→18:03)
[2021-04-23] MEDS ORDERED: DOXY-443 PO ×2 (17:43→17:51)
[2021-04-23] MEDS ORDERED: DOXYCYCLINE HYCLATE 100MG TABLET PO ONE (17:55)
[2021-04-23] MEDS ORDERED: AUGMENTIN 875 MG TAB PO ONE (17:55)
== END 2021-04-23 18:24 | disposition home or self-care (01) ==
LOC: M ED 12:31
DX: J18.9 Pneumonia, unspecified organism (principal); R74.8 Abnormal levels of other serum enzymes; R91.1 Solitary pulmonary nodule; J44.9 Chronic obstructive pulmonary disease, unspecified; E78.5 Hyperlipidemia, unspecified; Z79.899 Other long term (current) drug therapy; F17.210 Nicotine dependence, cigarettes, uncomplicated
CPT/HCPCS: 36415; 71046; 71260; 80053; 82077; 83880; 85025; 87040; 87798; 99283; Q9967

== ENCOUNTER → 2021-05-04 | Outpatient (REF) | payer MEDICARE, OTHER ==
[~2021-05-04] MED LIST changes: +ALBU8.5H; +AUGM875T28 PO; +DOXY-443 PO; +NEUR600T PO; +QUET300T2; +SERO1TAB2 PO
== END ==
LOC: M SFHCADAM 16:19
PROVIDERS: ATTEND Family Medicine
DX: J34.89 Other specified disorders of nose and nasal sinuses (principal)
CPT/HCPCS: G0463; U0003

== ENCOUNTER 2021-07-27 12:56 | Emergency (ER) | payer MEDICARE ==
[~2021-07-27] VITALS: Ht 160 cm; Wt 52.3 kg
[2021-07-27] MEDS ORDERED: NS 1,000 ML IV ONE (14:15)
[2021-07-27 15:09] LABS: BASO # 0.1 10^3/uL (0.0-0.2); BASO % 0.9 % (0.0-1.0); EOS # 0.1 10^3/uL (0.0-0.5); EOS % 2.2 % (0.0-3.0); HEMATOCRIT 32.3 % (36.0-47.0); HEMOGLOBIN 10.7 g/dl (12.0-15.5); LYMPH # 2.1 10^3/uL (1.5-5.0); LYMPH % 36.6 % (24.0-44.0); MEAN CORPUSCULAR HGB CONC 33.1 g/dl (32.0-36.5); MEAN CORPUSCULAR VOLUME 99.7 fl (80.0-96.0); MONO # 0.6 10^3/uL (0.0-0.8); MONO % 10.3 % (2.0-8.0); NEUTROPHILS # 2.9 10^3/uL (1.5-8.5); NEUTROPHILS % 49.8 % (36.0-66.0); PLATELET COUNT, AUTOMATED 545 10^3/uL (150-450); RED BLOOD COUNT 3.24 10^6/uL (4.00-5.40); WHITE BLOOD COUNT 5.9 10^3/uL (4.0-10.0)
[2021-07-27] MEDS: IPRATROPIUM 0.5MG/ALBUTEROL 2.5MG INH SOL UD 3ML (DUONEB) NEB PRN (15:22)
[2021-07-27 15:44] LABS: ALBUMIN 2.7 GM/DL (3.2-5.2); ALT/SGPT 55 U/L (12-78); BILIRUBIN,DIRECT 0.6 MG/DL (0.0-0.2); BILIRUBIN,TOTAL 0.8 MG/DL (0.2-1.0); BLOOD UREA NITROGEN 9 MG/DL (7-18); CALCIUM LEVEL 8.7 MG/DL (8.5-10.1); CARBON DIOXIDE LEVEL 28 MEQ/L (21-32); CHLORIDE LEVEL 105 MEQ/L (98-107); CK-MB VALUE MASS < 1.0 NG/ML (<3.6); CPK CREATINE PHOSPHOKINASE 25 U/L (26-192); CREATININE FOR GFR 0.43 MG/DL (0.55-1.30); GLOMERULAR FILTRATION RATE > 60.0 (>51); GLUCOSE, FASTING 99 MG/DL (70-100); NT-PRO BNP 319 PG/ML (<125); POTASSIUM SERUM 3.6 MEQ/L (3.5-5.1); SODIUM LEVEL 135 MEQ/L (136-145); TOTAL PROTEIN 6.5 GM/DL (6.4-8.2)
[2021-07-27 15:56] LABS: RSV AMPLIFICATION NEGATIVE (NEGATIVE)
[2021-07-27] MEDS ORDERED: ISOVUE-370 76% 100ML VIAL As Ordered ONE (16:11)
[2021-07-27] MEDS ORDERED: methylPREDNISolone 125MG 2ML VIAL IV ONE (17:35)
[2021-07-27] MEDS ORDERED: COMBAER6 INH (18:15)
[2021-07-27] MEDS ORDERED: SERO1TAB2 PO (18:15)
[2021-07-27] MEDS ORDERED: PRED10TA2 PO (18:19)
[2021-07-27 18:49] VITALS: BP 159/95
== END 2021-07-27 18:51 | disposition home or self-care (01) ==
LOC: M ED 12:56
DX: J44.1 Chronic obstructive pulmonary disease with (acute) exacerbation (principal); R00.0 Tachycardia, unspecified; J98.4 Other disorders of lung; Z85.3 Personal history of malignant neoplasm of breast; F17.200 Nicotine dependence, unspecified, uncomplicated; Z79.899 Other long term (current) drug therapy; F41.9 Anxiety disorder, unspecified; Z79.51 Long term (current) use of inhaled steroids
CPT/HCPCS: 36600; 71045; 71275; 80047; 80048; 80076; 82550; 82553; 82803; 83605; 83880; 84145; 84484; 85025; 85379; 87631; 93005; 93041; 94640; 94760; 96361; 96374; 99285; J2930; Q9967

== ENCOUNTER → 2022-02-24 | Outpatient (CLI) | payer MEDICARE, MEDICAID ==
[~2022-02-24] MED LIST changes: +COMBAER6 INH; +PRED10TA2 PO
== END ==
LOC: M RAD 13:54
PROVIDERS: ATTEND Internal Medicine Pulmonary Disease
DX: R91.8 Other nonspecific abnormal finding of lung field (principal); I25.10 Atherosclerotic heart disease of native coronary artery without angina pectoris; I70.0 Atherosclerosis of aorta

== ENCOUNTER → 2022-03-24 | Outpatient (REF) | payer MEDICARE, MEDICAID ==
[2022-03-24 18:37] LABS: BASO # 0.1 10^3/uL (0.0-0.2); BASO % 1.2 % (0.0-1.0); EOS # 0.2 10^3/uL (0.0-0.5); EOS % 2.9 % (0.0-3.0); HEMATOCRIT 42.2 % (36.0-47.0); HEMOGLOBIN 12.9 g/dl (12.0-15.5); LYMPH # 2.4 10^3/uL (1.5-5.0); LYMPH % 36.1 % (24.0-44.0); MEAN CORPUSCULAR HEMOGLOBIN 29.7 pg (27.0-33.0); MEAN CORPUSCULAR HGB CONC 30.6 g/dl (32.0-36.5); MONO # 0.6 10^3/uL (0.0-0.8); MONO % 8.5 % (2.0-8.0); NEUTROPHILS # 3.4 10^3/uL (1.5-8.5); PLATELET COUNT, AUTOMATED 454 10^3/uL (150-450); RED BLOOD COUNT 4.35 10^6/uL (4.00-5.40); WHITE BLOOD COUNT 6.6 10^3/uL (4.0-10.0)
== END ==
LOC: M LAB REF 17:24
PROVIDERS: ATTEND Pediatrics
DX: R79.89 Other specified abnormal findings of blood chemistry (principal); E07.9 Disorder of thyroid, unspecified

== ENCOUNTER 2022-08-16 18:48 | Inpatient (IN) | payer MEDICARE, MEDICAID ==
[~2022-08-16] VITALS: Ht 154.9 cm; Wt 43.7 kg
[~2022-08-16 18:48] MED LIST changes: -ALBU8.5H; +ALBU8.5H INH
[2022-08-16 20:05] LABS: HEMATOCRIT 35.6 % (36.0-47.0); HEMOGLOBIN 12.2 g/dl (12.0-15.5); MEAN CORPUSCULAR HEMOGLOBIN 31.9 pg (27.0-33.0); MEAN CORPUSCULAR HGB CONC 34.3 g/dl (32.0-36.5); MEAN CORPUSCULAR VOLUME 93.2 fl (80.0-96.0); PLATELET COUNT, AUTOMATED 315 10^3/uL (150-450); RED BLOOD COUNT 3.82 10^6/uL (4.00-5.40)
[2022-08-16 20:29] LABS: ETHYL ALCOHOL (ETHANOL) 0.085 % (0.000-0.010)
[2022-08-16 20:30] LABS: ACETAMINOPHEN LEVEL < 2.0 UG/ML (10.0-20.0)
[2022-08-16 20:31] LABS: ALBUMIN 3.8 G/DL (3.2-5.2); ALKALINE PHOSPHATASE 72 U/L (46-116); ALT/SGPT 36 U/L (7.0-40); AST/SGOT 52 U/L (<34); BILIRUBIN,DIRECT 0.2 MG/DL (<0.4); BILIRUBIN,TOTAL 0.6 MG/DL (0.3-1.2); BLOOD UREA NITROGEN 12 MG/DL (9-23); CALCIUM LEVEL 9.1 MG/DL (8.5-10.1); CARBON DIOXIDE LEVEL 28 MMOL/L (20-31); CHLORIDE LEVEL 102 MMOL/L (98-107); CREATININE FOR GFR 0.65 MG/DL (0.55-1.30); GLOMERULAR FILTRATION RATE > 60.0 (>51); GLUCOSE, FASTING 97 MG/DL (60-100); POTASSIUM SERUM 3.9 MMOL/L (3.5-5.1); SALICYLATE LEVEL < 3.0 MG/DL (<30); SODIUM LEVEL 139 MMOL/L (136-145); TOTAL PROTEIN 6.5 G/DL (5.7-8.2)
[2022-08-16 20:33] LABS: THYROID STIMULATING HORMONE 1.565 uIU/ML (0.55-4.78)
[2022-08-17] MEDS ORDERED: HALOPERIDOL 5MG/ML 1ML VIAL IM ONE (00:10)
[2022-08-17] MEDS ORDERED: MIDAZOLAM INJ 2MG/2ML VIAL IM ONE (00:10)
[2022-08-17 06:12] LABS: BARBITURATES URINE NEGATIVE (NEGATIVE)
[2022-08-17 06:13] LABS: COCAINE METABOLITE URINE NEGATIVE (NEGATIVE); METHADONE URINE NEGATIVE (NEGATIVE); OPIATES URINE NEGATIVE (NEGATIVE); PHENCYCLIDINE URINE NEGATIVE (NEGATIVE)
[2022-08-17 06:22] LABS: AMPHETAMINES LEVEL URINE POSITIVE (NEGATIVE); BENZODIAZEPINES URINE POSITIVE (NEGATIVE); CANNABINOIDS URINE POSITIVE (NEGATIVE)
[2022-08-17] MEDS ORDERED: MOM 30ML SUSPENSION UDC PO PRN (11:50)
[2022-08-17] MEDS ORDERED: LORazepam 2 MG TAB PO PRN (11:50)
[2022-08-17] MEDS ORDERED: MAALOX 30 ML SUSP *UDC PO PRN (11:50)
[2022-08-17] MEDS ORDERED: traZODone 50 MG TAB PO PRN (11:50)
[2022-08-17] MEDS ORDERED: ACETAMINOPHEN TAB 650MG DOSE (2X325MG) PO PRN (11:50)
[2022-08-17] MEDS ORDERED: IBUPROFEN 400MG TAB PO PRN (11:50)
[2022-08-17 15:13] VITALS: BP 146/97
[2022-08-17 16:00] VITALS: BP 146/97
[2022-08-17] MEDS ORDERED: MED REC COMMENT (16:29)
[2022-08-17] MEDS: NICOTINE 21MG/24HR 1 EA TRANSDERMAL TD SCH (17:24)
[2022-08-17] MEDS: FOLIC ACID 1MG TAB PO SCH (17:24)
[2022-08-17] MEDS: MULTIVITAMINS/MINERALS THERAP 1 TAB PO SCH (17:24)
[2022-08-17] MEDS: THIAMINE 100 MG TAB PO SCH ×3 (17:24→22:12)
[2022-08-17] MEDS: UNRESOLVED CLARIFICATION ENTRY XX SCH (17:25)
[2022-08-17] MEDS: QUEtiapine FUMARATE 100 MG TAB PO SCH ×2 (21:00→22:12)
[2022-08-17 23:56] VITALS: BP 146/97
[2022-08-18] MEDS: UNRESOLVED CLARIFICATION ENTRY XX SCH (00:26)
[2022-08-18 06:57] VITALS: BP 138/86
[2022-08-18 08:00] VITALS: BP 138/86
[2022-08-18] MEDS: NICOTINE 21MG/24HR 1 EA TRANSDERMAL TD SCH (09:49)
[2022-08-18] MEDS: MULTIVITAMINS/MINERALS THERAP 1 TAB PO SCH (09:50)
[2022-08-18] MEDS: FOLIC ACID 1MG TAB PO SCH (09:50)
[2022-08-18] MEDS: LORazepam 1 MG TAB PO PRN ×2 (09:50→21:10)
[2022-08-18] MEDS: THIAMINE 100 MG TAB PO SCH (09:50)
[2022-08-18] MEDS ORDERED: THIAMINE INJection 500 MG in NS 100 ML IV SCH (13:05)
[2022-08-18] MEDS: THIAMINE 200MG 2ML VIAL IM SCH ×2 (14:19→21:12)
[2022-08-18] MEDS: GABAPENTIN 100 MG CAP PO SCH ×2 (15:37→21:09)
[2022-08-18 16:00] VITALS: BP 138/86
[2022-08-18 18:03] VITALS: BP 126/66
[2022-08-18] MEDS: QUEtiapine FUMARATE 100 MG TAB PO SCH (21:10)
[2022-08-18] MEDS ORDERED: ALBUTEROL 90 MCG/ACT 8GM HFA INHALER INH PRN (21:40)
[2022-08-19 00:20] VITALS: BP 102/58
[2022-08-19] MEDS: THIAMINE 200MG 2ML VIAL IM SCH ×3 (05:42→20:22)
[2022-08-19 07:39] LABS: CHOLESTEROL RISK RATIO 1.96 (<5); HDL CHOLESTEROL 98.9 MG/DL (>40); LDL CHOLESTEROL 77.3 MG/DL (<100); NON-HDL-C 95.1 MG/DL
[2022-08-19 08:00] VITALS: BP 102/58
[2022-08-19] MEDS: FOLIC ACID 1MG TAB PO SCH (09:27)
[2022-08-19] MEDS: NICOTINE 21MG/24HR 1 EA TRANSDERMAL TD SCH (09:27)
[2022-08-19] MEDS: GABAPENTIN 100 MG CAP PO SCH ×3 (09:27→20:22)
[2022-08-19] MEDS: MULTIVITAMINS/MINERALS THERAP 1 TAB PO SCH (09:27)
[2022-08-19] MEDS: LORazepam 1 MG TAB PO PRN ×2 (13:32→20:22)
[2022-08-19 16:00] VITALS: BP 102/58
[2022-08-19 18:58] VITALS: BP 124/80
[2022-08-19] MEDS: QUEtiapine FUMARATE 100 MG TAB PO SCH (20:22)
[2022-08-19 22:00] VITALS: BP 92/62
[2022-08-20 06:00] VITALS: BP 143/82
[2022-08-20] MEDS: THIAMINE 200MG 2ML VIAL IM SCH (06:00)
[2022-08-20] MEDS: NICOTINE 21MG/24HR 1 EA TRANSDERMAL TD SCH (09:00)
[2022-08-20] MEDS: GABAPENTIN 100 MG CAP PO SCH (09:08)
[2022-08-20] MEDS: FOLIC ACID 1MG TAB PO SCH (09:08)
[2022-08-20] MEDS: MULTIVITAMINS/MINERALS THERAP 1 TAB PO SCH (09:08)
[2022-08-20] MEDS ORDERED: GABA-1171 PO (11:26)
[2022-08-20] MEDS ORDERED: NICO21PAT TD (11:26)
[2022-08-20] MEDS ORDERED: QUET100T2 PO (11:26)
[2022-08-20] MEDS ORDERED: HALO5TAB33 PO (11:26)
[2022-08-20] MEDS ORDERED: THIA100TA PO (11:26)
[2022-08-22] MEDS ORDERED: THIAMINE INJection 250 MG in NS 100 ML IV SCH (09:00)
[2022-08-22] MEDS ORDERED: THIAMINE 200MG 2ML VIAL IM SCH (09:00)
[2022-08-27] MEDS ORDERED: THIAMINE 100 MG TAB PO SCH (09:00)
== END 2022-08-20 13:03 | disposition home or self-care (01) | DRG 885 ==
LOC: M ED 18:48 → M PSY 08-17 11:47 → M ED INP 08-17 11:47 → M PSY 08-17 15:25
PROVIDERS: ADMIT Student in an Organized Health Care Education/Training Program; ATTEND Student in an Organized Health Care Education/Training Program
DX: F31.9 Bipolar disorder, unspecified (principal); F10.229 Alcohol dependence with intoxication, unspecified; F14.10 Cocaine abuse, uncomplicated; F12.10 Cannabis abuse, uncomplicated; J45.909 Unspecified asthma, uncomplicated; F15.10 Other stimulant abuse, uncomplicated; F17.200 Nicotine dependence, unspecified, uncomplicated; F10.26 Alcohol dependence with alcohol-induced persisting amnestic disorder; Z85.3 Personal history of malignant neoplasm of breast; Z90.12 Acquired absence of left breast and nipple

== ENCOUNTER 2022-09-16 03:15 | Emergency (ER) | payer MEDICAID, MEDICARE, OTHER ==
[~2022-09-16 03:15] MED LIST changes: +GABA-1171 PO; +HALO5TAB33 PO; +MED REC COMMENT; +NICO21PAT TD; +QUET100T2 PO
[2022-09-16] MEDS ORDERED: LORazepam 2 MG/ML 1ML VIAL IM STA (03:25)
[2022-09-16] MEDS ORDERED: NS 1,000 ML IV ONE (03:30)
[2022-09-16 04:15] LABS: AMPHETAMINES LEVEL URINE NEGATIVE (NEGATIVE); BARBITURATES URINE NEGATIVE (NEGATIVE); BENZODIAZEPINES URINE NEGATIVE (NEGATIVE); COCAINE METABOLITE URINE NEGATIVE (NEGATIVE); METHADONE URINE NEGATIVE (NEGATIVE); OPIATES URINE NEGATIVE (NEGATIVE); PHENCYCLIDINE URINE NEGATIVE (NEGATIVE)
[2022-09-16 04:18] LABS: CANNABINOIDS URINE POSITIVE (NEGATIVE)
[2022-09-16 04:19] LABS: BASO # 0.1 10^3/uL (0.0-0.2); BASO % 0.8 % (0.0-1.0); EOS # 0.2 10^3/uL (0.0-0.5); EOS % 2.5 % (0.0-3.0); HEMATOCRIT 33.3 % (36.0-47.0); HEMOGLOBIN 11.2 g/dl (12.0-15.5); LYMPH # 3.8 10^3/uL (1.5-5.0); LYMPH % 40.8 % (24.0-44.0); MEAN CORPUSCULAR HEMOGLOBIN 32.6 pg (27.0-33.0); MEAN CORPUSCULAR HGB CONC 33.6 g/dl (32.0-36.5); MEAN CORPUSCULAR VOLUME 96.8 fl (80.0-96.0); MONO # 0.8 10^3/uL (0.0-0.8); MONO % 8.2 % (2.0-8.0); NEUTROPHILS # 4.4 10^3/uL (1.5-8.5); NEUTROPHILS % 47.5 % (36.0-66.0); PLATELET COUNT, AUTOMATED 317 10^3/uL (150-450); RED BLOOD COUNT 3.44 10^6/uL (4.00-5.40); WHITE BLOOD COUNT 9.3 10^3/uL (4.0-10.0)
[2022-09-16 04:44] LABS: ACETAMINOPHEN LEVEL < 2.0 UG/ML (10.0-20.0); ALBUMIN 3.8 G/DL (3.2-5.2); ALKALINE PHOSPHATASE 90 U/L (46-116); ALT/SGPT 19 U/L (7.0-40); AST/SGOT 36 U/L (<34); BILIRUBIN,DIRECT 0.1 MG/DL (<0.4); BILIRUBIN,TOTAL 0.3 MG/DL (0.3-1.2); BLOOD UREA NITROGEN 31 MG/DL (9-23); CALCIUM LEVEL 8.1 MG/DL (8.5-10.1); CARBON DIOXIDE LEVEL 23 MMOL/L (20-31); CHLORIDE LEVEL 105 MMOL/L (98-107); CPK CREATINE PHOSPHOKINASE 401 U/L (34-145); GLOMERULAR FILTRATION RATE > 60.0 (>51); GLUCOSE, FASTING 81 MG/DL (60-100); POTASSIUM SERUM 4.1 MMOL/L (3.5-5.1); SODIUM LEVEL 138 MMOL/L (136-145); TOTAL PROTEIN 6.8 G/DL (5.7-8.2)
[2022-09-16 04:46] LABS: THYROID STIMULATING HORMONE 0.446 uIU/ML (0.55-4.78)
[2022-09-16 04:49] LABS: SALICYLATE LEVEL < 3.0 MG/DL (<30)
[2022-09-16 04:50] LABS: RSV AMPLIFICATION NEGATIVE (NEGATIVE)
[2022-09-16 13:30] VITALS: BP 144/93
== END 2022-09-16 14:07 | disposition home or self-care (01) ==
LOC: M ED 03:15 → EDBD 03:15 → M ED 14:07
DX: F10.129 Alcohol abuse with intoxication, unspecified (principal); F31.9 Bipolar disorder, unspecified; Z79.899 Other long term (current) drug therapy; Z79.51 Long term (current) use of inhaled steroids
CPT/HCPCS: 71045; 80048; 80076; 80143; 80307; 82077; 82550; 84443; 85025; 87631; 93005; 93041; 94760; 96372; 99285; J2060

== ENCOUNTER 2022-11-03 18:08 | Emergency (ER) | payer OTHER, MEDICAID ==
[~2022-11-03] VITALS: Ht 160 cm; Wt 47.7 kg
[2022-11-03 18:20] VITALS: TEMP 97.8
[2022-11-03 19:14] LABS: BASO # 0.1 10^3/uL (0.0-0.2); BASO % 0.5 % (0.0-1.0); EOS # 0.1 10^3/uL (0.0-0.5); EOS % 0.6 % (0.0-3.0); HEMATOCRIT 40.4 % (36.0-47.0); HEMOGLOBIN 14.3 g/dl (12.0-15.5); LYMPH # 2.3 10^3/uL (1.5-5.0); LYMPH % 20.3 % (24.0-44.0); MEAN CORPUSCULAR HEMOGLOBIN 32.6 pg (27.0-33.0); MEAN CORPUSCULAR HGB CONC 35.4 g/dl (32.0-36.5); MEAN CORPUSCULAR VOLUME 92.2 fl (80.0-96.0); MONO # 0.7 10^3/uL (0.0-0.8); MONO % 6.6 % (2.0-8.0); NEUTROPHILS % 71.5 % (36.0-66.0); PLATELET COUNT, AUTOMATED 407 10^3/uL (150-450); RED BLOOD COUNT 4.38 10^6/uL (4.00-5.40); WHITE BLOOD COUNT 11.1 10^3/uL (4.0-10.0)
[2022-11-03 19:15] VITALS: BP 164/74; O2SAT 97
[2022-11-03 19:30] LABS: ETHYL ALCOHOL (ETHANOL) < 0.003 % (0.000-0.010)
[2022-11-03 19:31] LABS: ACETAMINOPHEN LEVEL < 2.0 UG/ML (10.0-20.0)
[2022-11-03 19:32] LABS: ALKALINE PHOSPHATASE 98 U/L (46-116); ALT/SGPT 15 U/L (7.0-40); AST/SGOT 24 U/L (<34); BILIRUBIN,DIRECT 0.2 MG/DL (<0.4); BILIRUBIN,TOTAL 0.8 MG/DL (0.3-1.2); BLOOD UREA NITROGEN 19 MG/DL (9-23); CARBON DIOXIDE LEVEL 27 MMOL/L (20-31); CHLORIDE LEVEL 92 MMOL/L (98-107); CREATININE FOR GFR 0.79 MG/DL (0.55-1.30); GLOMERULAR FILTRATION RATE > 60.0 (>51); GLUCOSE, FASTING 109 MG/DL (60-100); POTASSIUM SERUM 3.4 MMOL/L (3.5-5.1); SALICYLATE LEVEL < 3.0 MG/DL (<30); SODIUM LEVEL 127 MMOL/L (136-145)
[2022-11-03 19:34] LABS: THYROID STIMULATING HORMONE 3.615 uIU/ML (0.55-4.78)
== END 2022-11-03 20:51 | disposition home or self-care (01) ==
LOC: EDBD 18:08 → M ED 18:08
DX: R56.9 Unspecified convulsions (principal); F41.9 Anxiety disorder, unspecified; F32.A Depression, unspecified; F10.10 Alcohol abuse, uncomplicated; Z87.891 Personal history of nicotine dependence; Z79.899 Other long term (current) drug therapy; Z79.51 Long term (current) use of inhaled steroids

== ENCOUNTER 2022-12-22 22:25 | Inpatient (IN) | payer OTHER, MEDICAID ==
[~2022-12-22] VITALS: Ht 154.9 cm; Wt 35.8 kg
[2022-12-22 23:09] LABS: IONIZED CALCIUM 4.4 MG/DL (4.5-5.3)
[2022-12-22 23:17] LABS: BASO # 0.1 10^3/uL (0.0-0.2); BASO % 2.1 % (0.0-1.0); EOS # 0.1 10^3/uL (0.0-0.5); EOS % 2.2 % (0.0-3.0); HEMATOCRIT 30.7 % (36.0-47.0); HEMOGLOBIN 10.6 g/dl (12.0-15.5); LYMPH # 1.6 10^3/uL (1.5-5.0); LYMPH % 29.3 % (24.0-44.0); MEAN CORPUSCULAR HEMOGLOBIN 31.5 pg (27.0-33.0); MEAN CORPUSCULAR HGB CONC 34.5 g/dl (32.0-36.5); MEAN CORPUSCULAR VOLUME 91.1 fl (80.0-96.0); MONO # 0.5 10^3/uL (0.0-0.8); MONO % 9.7 % (2.0-8.0); NEUTROPHILS % 56.1 % (36.0-66.0); PLATELET COUNT, AUTOMATED 331 10^3/uL (150-450); RED BLOOD COUNT 3.37 10^6/uL (4.00-5.40); WHITE BLOOD COUNT 5.4 10^3/uL (4.0-10.0)
[2022-12-22 23:46] LABS: ALBUMIN 3.4 G/DL (3.2-5.2); ALKALINE PHOSPHATASE 115 U/L (46-116); ALT/SGPT 92 U/L (7.0-40); AST/SGOT 138 U/L (<34); BILIRUBIN,DIRECT 0.2 MG/DL (<0.4); BILIRUBIN,TOTAL 0.4 MG/DL (0.3-1.2); BLOOD UREA NITROGEN 10 MG/DL (9-23); CALCIUM LEVEL 8.5 MG/DL (8.5-10.1); CARBON DIOXIDE LEVEL 20 MMOL/L (20-31); CHLORIDE LEVEL 94 MMOL/L (98-107); CREATININE FOR GFR 0.41 MG/DL (0.55-1.30); GLOMERULAR FILTRATION RATE > 60.0 (>51); GLUCOSE, FASTING 115 MG/DL (60-100); PHOSPHORUS LEVEL 4.5 MG/DL (2.5-4.9); POTASSIUM SERUM 3.4 MMOL/L (3.5-5.1); SODIUM LEVEL 128 MMOL/L (136-145)
[2022-12-23] MEDS ORDERED: LEVALBUTEROL 1.25MG 0.5ML CONCENTRATE NEB NEB ONE (01:50)
[2022-12-23 02:44] LABS: AMPHETAMINES LEVEL URINE POSITIVE (NEGATIVE); BARBITURATES URINE NEGATIVE (NEGATIVE); BENZODIAZEPINES URINE NEGATIVE (NEGATIVE); CANNABINOIDS URINE POSITIVE (NEGATIVE); COCAINE METABOLITE URINE NEGATIVE (NEGATIVE); METHADONE URINE NEGATIVE (NEGATIVE); OPIATES URINE NEGATIVE (NEGATIVE); PHENCYCLIDINE URINE NEGATIVE (NEGATIVE)
[2022-12-23 02:55] LABS: ETHYL ALCOHOL (ETHANOL) 0.097 % (0.000-0.010)
[2022-12-23] MEDS ORDERED: LORazepam 2 MG/ML 1ML VIAL IV STA ×2 (03:21→06:33)
[2022-12-23] MEDS ORDERED: OXAZEPAM 15MG CAP PO SCH (06:00)
[2022-12-23] MEDS ORDERED: LORazepam 2 MG TAB PO PRN (07:45)
[2022-12-23] MEDS ORDERED: ACETAMINOPHEN TAB 650MG DOSE (2X325MG) PO PRN (07:45)
[2022-12-23] MEDS ORDERED: NS 1,000 ML IV ONE (08:45)
[2022-12-23 08:46] LABS: INR 0.96; PROTHROMBIN TIME 12.5 SECONDS (12.5-14.5)
[2022-12-23 09:09] LABS: PROCALCITONIN <0.04 ng/ml
[2022-12-23] MEDS ORDERED: MULTIVITAMIN -ADULT INJECTION 10 ML, THIAMINE INJection 100 MG, FOLIC ACID 1 MG in NS 1... IV ONE (10:00)
[2022-12-23] MEDS ORDERED: POTASSIUM CHLORIDE 10MEQ SR TABLET PO ONE (10:20)
[2022-12-23 10:27] LABS: IRON (FE) 26 UG/DL (50-170)
[2022-12-23 10:28] LABS: TOTAL IRON BINDING CAPACITY 370 UG/DL (250-425)
[2022-12-23 10:32] LABS: FERRITIN 45.2 NG/ML (7.3-270.7)
[2022-12-23 10:33] LABS: FOLATE 16.5 NG/ML (>5.4)
[2022-12-23 10:34] LABS: VITAMIN B12 LEVEL 444 PG/ML (211-911)
[2022-12-23 10:57] VITALS: BP 159/85; O2SAT 93
[2022-12-23] MEDS: LEVALBUTEROL 1.25MG 0.5ML CONCENTRATE NEB INH SCH ×3 (11:19→20:05)
[2022-12-23] MEDS ORDERED: D5W/0.9% SODIUM CHLORIDE 1,000 ML IV SCH (12:10)
[2022-12-23] MEDS ORDERED: LORazepam 2 MG/ML 1ML VIAL IV PRN (12:15)
[2022-12-23 12:43] LABS: BLOOD UREA NITROGEN 6 MG/DL (9-23); CALCIUM LEVEL 8.2 MG/DL (8.5-10.1); CARBON DIOXIDE LEVEL 24 MMOL/L (20-31); CHLORIDE LEVEL 95 MMOL/L (98-107); CREATININE FOR GFR 0.43 MG/DL (0.55-1.30); GLOMERULAR FILTRATION RATE > 60.0 (>51); GLUCOSE, FASTING 96 MG/DL (60-100); POTASSIUM SERUM 2.8 MMOL/L (3.5-5.1); SODIUM LEVEL 132 MMOL/L (136-145)
[2022-12-23] MEDS ORDERED: KCL 10MEQ/100ML SWI (KRUN) 10 MEQ in IV 1 EA IV ONE (12:50)
[2022-12-23] MEDS: KCL 10MEQ/100ML SWI (KRUN) 10 MEQ in IV 1 EA IV SCH ×4 (13:11→16:51)
[2022-12-23 14:51] LABS: BLOOD UREA NITROGEN 8 MG/DL (9-23); CALCIUM LEVEL 8.7 MG/DL (8.5-10.1); CARBON DIOXIDE LEVEL 24 MMOL/L (20-31); CHLORIDE LEVEL 94 MMOL/L (98-107); CREATININE FOR GFR 0.45 MG/DL (0.55-1.30); GLOMERULAR FILTRATION RATE > 60.0 (>51); GLUCOSE, FASTING 93 MG/DL (60-100); POTASSIUM SERUM 3.2 MMOL/L (3.5-5.1); SODIUM LEVEL 133 MMOL/L (136-145)
[2022-12-23] MEDS ORDERED: D5W/LR 1,000 ML IV SCH (15:00)
[2022-12-23 15:55] VITALS: BP 134/84; TEMP 98.6; O2SAT 92
[2022-12-23 19:28] LABS: HEPATITIS C VIRUS ABY INDEX 0.13 INDEX (<0.8)
[2022-12-23 19:29] LABS: HEPATITIS B CORE ANTIBODY IGM NEGATIVE (NEGATIVE)
[2022-12-23 20:00] VITALS: BP 136/89; TEMP 98.1; O2SAT 94
[2022-12-23] MEDS: FOLIC ACID 1MG TAB PO SCH (20:22)
[2022-12-23] MEDS: MULTIVITAMINS/MINERALS THERAP 1 TAB PO SCH (20:22)
[2022-12-23] MEDS: THIAMINE 100 MG TAB PO SCH (20:23)
[2022-12-23 23:37] LABS: BLOOD UREA NITROGEN 5 MG/DL (9-23); CALCIUM LEVEL 8.1 MG/DL (8.5-10.1); CARBON DIOXIDE LEVEL 25 MMOL/L (20-31); CHLORIDE LEVEL 96 MMOL/L (98-107); GLOMERULAR FILTRATION RATE > 60.0 (>51); GLUCOSE, FASTING 119 MG/DL (60-100); POTASSIUM SERUM 2.9 MMOL/L (3.5-5.1); SODIUM LEVEL 132 MMOL/L (136-145)
[2022-12-23 23:57] VITALS: BP 133/72; TEMP 98.1; O2SAT 94
[2022-12-24] MEDS ORDERED: POTASSIUM CHLORIDE INJ 40 MEQ in D5W/LR 1,000 ML IV SCH ×2
[2022-12-24] MEDS: KCL 10MEQ/100ML SWI (KRUN) 10 MEQ in IV 1 EA IV SCH ×2 (00:20→01:42)
[2022-12-24 01:13] LABS: MAGNESIUM LEVEL 1.7 MG/DL (1.8-2.4)
[2022-12-24] MEDS: LEVALBUTEROL 1.25MG 0.5ML CONCENTRATE NEB INH SCH ×2 (02:49→07:30)
[2022-12-24] MEDS: MAG SULF 1GM/100ML (MAG RUN) 100 ML IV SCH ×2 (02:56→04:03)
[2022-12-24 04:00] VITALS: BP 145/77; TEMP 97.8; O2SAT 93
[2022-12-24] MEDS ORDERED: GABA-1171 PO (06:31)
[2022-12-24] MEDS ORDERED: FLUT1BLS8 INH (06:31)
[2022-12-24] MEDS ORDERED: QUET100T2 PO (06:31)
[2022-12-24] MEDS ORDERED: HOME MED LIST COMPLETE! XX SCH (06:35)
[2022-12-24 06:51] LABS: BASO # 0.1 10^3/uL (0.0-0.2); BASO % 1.5 % (0.0-1.0); EOS # 0.1 10^3/uL (0.0-0.5); EOS % 1.7 % (0.0-3.0); HEMATOCRIT 33.2 % (36.0-47.0); HEMOGLOBIN 11.3 g/dl (12.0-15.5); LYMPH # 1.7 10^3/uL (1.5-5.0); LYMPH % 30.6 % (24.0-44.0); MEAN CORPUSCULAR HEMOGLOBIN 31.2 pg (27.0-33.0); MEAN CORPUSCULAR VOLUME 91.7 fl (80.0-96.0); MONO # 0.7 10^3/uL (0.0-0.8); MONO % 12.4 % (2.0-8.0); NEUTROPHILS # 2.9 10^3/uL (1.5-8.5); NEUTROPHILS % 53.4 % (36.0-66.0); PLATELET COUNT, AUTOMATED 346 10^3/uL (150-450); RED BLOOD COUNT 3.62 10^6/uL (4.00-5.40); WHITE BLOOD COUNT 5.4 10^3/uL (4.0-10.0)
[2022-12-24 07:20] LABS: ALBUMIN 3.1 G/DL (3.2-5.2); BILIRUBIN,DIRECT 0.3 MG/DL (<0.4); BILIRUBIN,TOTAL 0.7 MG/DL (0.3-1.2); BLOOD UREA NITROGEN < 5 MG/DL (9-23); CALCIUM LEVEL 8.1 MG/DL (8.5-10.1); CARBON DIOXIDE LEVEL 28 MMOL/L (20-31); CHLORIDE LEVEL 98 MMOL/L (98-107); CREATININE FOR GFR 0.36 MG/DL (0.55-1.30); GLOMERULAR FILTRATION RATE > 60.0 (>51); GLUCOSE, FASTING 152 MG/DL (60-100); MAGNESIUM LEVEL 2.2 MG/DL (1.8-2.4); POTASSIUM SERUM 3.4 MMOL/L (3.5-5.1); SODIUM LEVEL 130 MMOL/L (136-145); TOTAL PROTEIN 6.4 G/DL (5.7-8.2)
[2022-12-24 08:01] VITALS: BP 153/88; TEMP 98.2; O2SAT 96
[2022-12-24] MEDS: THIAMINE 100 MG TAB PO SCH ×2 (08:08→21:51)
[2022-12-24] MEDS ORDERED: ENOXAPARIN 30MG/0.3ML SYRINGE (J1650 PER 10MG) SC SCH (09:00)
[2022-12-24 11:42] VITALS: BP 121/86; TEMP 98.4; O2SAT 97
[2022-12-24] MEDS ORDERED: LORazepam 2 MG TAB PO PRN (11:45)
[2022-12-24] MEDS ORDERED: LEVALBUTEROL 1.25MG 0.5ML CONCENTRATE NEB INH PRN (11:45)
[2022-12-24] MEDS ORDERED: NS 1,000 ML IV SCH (12:30)
[2022-12-24] MEDS ORDERED: POTASSIUM CHLORIDE 10MEQ SR TABLET PO ONE (12:30)
[2022-12-24] MEDS: cefTRIAXone SOD 1 GM in D5W MINI-BAG PLUS 50 ML IV SCH (12:59)
[2022-12-24] MEDS: TIOTROPIUM INHALER/CAPSULE (SPIRIVA) INH SCH (13:56)
[2022-12-24] MEDS: ADVAIR HFA 115/21MCG INHALER INH SCH ×2 (13:56→19:48)
[2022-12-24 14:15] LABS: BLOOD UREA NITROGEN < 5 MG/DL (9-23); CALCIUM LEVEL 8.3 MG/DL (8.5-10.1); CARBON DIOXIDE LEVEL 27 MMOL/L (20-31); CHLORIDE LEVEL 95 MMOL/L (98-107); CREATININE FOR GFR 0.41 MG/DL (0.55-1.30); GLOMERULAR FILTRATION RATE > 60.0 (>51); GLUCOSE, FASTING 140 MG/DL (60-100); POTASSIUM SERUM 3.4 MMOL/L (3.5-5.1); SODIUM LEVEL 131 MMOL/L (136-145)
[2022-12-24] MEDS: GABAPENTIN 100 MG CAP PO SCH ×2 (15:31→21:51)
[2022-12-24] MEDS: FERROUS SULFATE 325MG TAB PO SCH (15:31)
[2022-12-24 16:00] VITALS: BP 137/78; TEMP 97.9; O2SAT 97
[2022-12-24] MEDS ORDERED: QUEtiapine FUMARATE 100 MG TAB PO SCH (21:00)
[2022-12-24 21:06] VITALS: BP 126/73; TEMP 97.2; O2SAT 92
[2022-12-24] MEDS: MULTIVITAMINS/MINERALS THERAP 1 TAB PO SCH (21:51)
[2022-12-24] MEDS: FOLIC ACID 1MG TAB PO SCH (21:51)
[2022-12-24 22:48] LABS: BLOOD UREA NITROGEN 10 MG/DL (9-23); CALCIUM LEVEL 8.2 MG/DL (8.5-10.1); CARBON DIOXIDE LEVEL 28 MMOL/L (20-31); CHLORIDE LEVEL 103 MMOL/L (98-107); GLOMERULAR FILTRATION RATE > 60.0 (>51); GLUCOSE, FASTING 141 MG/DL (60-100); SODIUM LEVEL 137 MMOL/L (136-145)
[2022-12-24] MEDS ORDERED: NS 0.45% 1,000 ML IV SCH (23:30)
[2022-12-25 00:44] VITALS: BP 108/68; TEMP 97.2; O2SAT 96
[2022-12-25 04:36] VITALS: BP 107/62; TEMP 97; O2SAT 95
[2022-12-25] MEDS: HEPARIN SOD (PORCINE) 5000UNITS/ML 1ML VIAL/SYRINGE SQ SCH ×2 (05:18→14:00)
[2022-12-25 05:44] LABS: BASO # 0.1 10^3/uL (0.0-0.2); BASO % 1.4 % (0.0-1.0); EOS # 0.1 10^3/uL (0.0-0.5); EOS % 2.3 % (0.0-3.0); HEMATOCRIT 30.4 % (36.0-47.0); LYMPH % 39.5 % (24.0-44.0); MEAN CORPUSCULAR HEMOGLOBIN 31.3 pg (27.0-33.0); MEAN CORPUSCULAR HGB CONC 32.9 g/dl (32.0-36.5); MEAN CORPUSCULAR VOLUME 95.3 fl (80.0-96.0); MONO # 0.6 10^3/uL (0.0-0.8); MONO % 12.1 % (2.0-8.0); NEUTROPHILS # 2.3 10^3/uL (1.5-8.5); NEUTROPHILS % 44.5 % (36.0-66.0); PLATELET COUNT, AUTOMATED 287 10^3/uL (150-450); RED BLOOD COUNT 3.19 10^6/uL (4.00-5.40); WHITE BLOOD COUNT 5.1 10^3/uL (4.0-10.0)
[2022-12-25 06:11] LABS: BLOOD UREA NITROGEN 11 MG/DL (9-23); CARBON DIOXIDE LEVEL 27 MMOL/L (20-31); CHLORIDE LEVEL 106 MMOL/L (98-107); CREATININE FOR GFR 0.48 MG/DL (0.55-1.30); GLOMERULAR FILTRATION RATE > 60.0 (>51); GLUCOSE, FASTING 104 MG/DL (60-100); MAGNESIUM LEVEL 1.8 MG/DL (1.8-2.4); POTASSIUM SERUM 4.2 MMOL/L (3.5-5.1); SODIUM LEVEL 138 MMOL/L (136-145)
[2022-12-25] MEDS: TIOTROPIUM INHALER/CAPSULE (SPIRIVA) INH SCH (07:31)
[2022-12-25] MEDS: ADVAIR HFA 115/21MCG INHALER INH SCH (07:31)
[2022-12-25 08:04] VITALS: BP 134/65; TEMP 97.2; O2SAT 97
[2022-12-25 08:53] VITALS: BP 134/65
[2022-12-25] MEDS: THIAMINE 100 MG TAB PO SCH (09:19)
[2022-12-25] MEDS: FERROUS SULFATE 325MG TAB PO SCH (09:19)
[2022-12-25] MEDS: GABAPENTIN 100 MG CAP PO SCH (09:19)
[2022-12-25] MEDS ORDERED: ALBU8.5H INH (11:13)
[2022-12-25] MEDS ORDERED: FOLI1TAB11 PO (11:13)
[2022-12-25] MEDS ORDERED: FERR1TAB8 PO (11:13)
[2022-12-25] MEDS ORDERED: GABA-1171 PO (11:13)
[2022-12-25] MEDS ORDERED: CEFD300C41 PO (11:13)
[2022-12-25] MEDS ORDERED: QUET300T2 PO (11:13)
[2022-12-25] MEDS ORDERED: THIA100TA PO (11:13)
[2022-12-25] MEDS ORDERED: FLUT1BLS8 INH (11:13)
[2022-12-25 12:12] VITALS: BP 124/70; TEMP 97.9; O2SAT 100
[2022-12-25] MEDS: cefTRIAXone SOD 1 GM in D5W MINI-BAG PLUS 50 ML IV SCH (13:00)
== END 2022-12-25 15:10 | disposition home or self-care (01) | DRG 896 ==
LOC: M ED 22:25 → M ED INP 12-23 07:43 → M PCU 12-23 10:53
PROVIDERS: ADMIT Internal Medicine; ATTEND Internal Medicine
DX: F10.239 Alcohol dependence with withdrawal, unspecified (principal); G92.8 Other toxic encephalopathy; E87.1 Hypo-osmolality and hyponatremia; E87.20 Acidosis, unspecified; N39.0 Urinary tract infection, site not specified; F12.10 Cannabis abuse, uncomplicated; R56.9 Unspecified convulsions; R74.01 Elevation of levels of liver transaminase levels; F15.10 Other stimulant abuse, uncomplicated; F31.9 Bipolar disorder, unspecified; F17.200 Nicotine dependence, unspecified, uncomplicated; F10.229 Alcohol dependence with intoxication, unspecified; E87.6 Hypokalemia; I10 Essential (primary) hypertension; D64.9 Anemia, unspecified; J45.909 Unspecified asthma, uncomplicated; Z79.899 Other long term (current) drug therapy; Z85.3 Personal history of malignant neoplasm of breast; Z90.10 Acquired absence of unspecified breast and nipple; Z91.51 Personal history of suicidal behavior

== ENCOUNTER 2023-01-12 18:28 | Emergency (ER) | payer OTHER, MEDICAID ==
[~2023-01-12] VITALS: Ht 167.6 cm; Wt 52.0 kg
[~2023-01-12 18:28] MED LIST changes: +CEFD300C41 PO; +FERR1TAB8 PO; +FLUT1BLS8 INH; +QUET300T2 PO
[2023-01-12 19:01] VITALS: TEMP 98.4
[2023-01-12 19:16] LABS: HEMATOCRIT 30.1 % (36.0-47.0); MEAN CORPUSCULAR HEMOGLOBIN 30.3 pg (27.0-33.0); MEAN CORPUSCULAR HGB CONC 33.2 g/dl (32.0-36.5); MEAN CORPUSCULAR VOLUME 91.2 fl (80.0-96.0); PLATELET COUNT, AUTOMATED 366 10^3/uL (150-450); WHITE BLOOD COUNT 7.3 10^3/uL (4.0-10.0)
[2023-01-12] MEDS ORDERED: OLANZapine INTRAMUSCULAR 10MG VIAL IM ONE (19:35)
[2023-01-12] MEDS ORDERED: LORazepam 2 MG/ML 1ML VIAL IM STA (19:35)
[2023-01-12 19:43] LABS: ACETAMINOPHEN LEVEL < 2.0 UG/ML (10.0-20.0)
[2023-01-12 19:44] LABS: ALKALINE PHOSPHATASE 116 U/L (46-116); ALT/SGPT 59 U/L (7.0-40); AST/SGOT 121 U/L (<34); BILIRUBIN,DIRECT 0.3 MG/DL (<0.4); BILIRUBIN,TOTAL 0.7 MG/DL (0.3-1.2); BLOOD UREA NITROGEN 24 MG/DL (9-23); CALCIUM LEVEL 8.9 MG/DL (8.5-10.1); CARBON DIOXIDE LEVEL 21 MMOL/L (20-31); CHLORIDE LEVEL 93 MMOL/L (98-107); CREATININE FOR GFR 0.74 MG/DL (0.55-1.30); GLOMERULAR FILTRATION RATE > 60.0 (>51); GLUCOSE, FASTING 59 MG/DL (60-100); POTASSIUM SERUM 4.7 MMOL/L (3.5-5.1); SALICYLATE LEVEL < 3.0 MG/DL (<30); SODIUM LEVEL 128 MMOL/L (136-145); TOTAL PROTEIN 7.2 G/DL (5.7-8.2)
[2023-01-12 20:00] LABS: ETHYL ALCOHOL (ETHANOL) 0.297 % (0.000-0.010)
[2023-01-12 21:46] VITALS: O2SAT 88
[2023-01-13] MEDS ORDERED: THIAMINE 100 MG TAB PO SCH (02:00)
[2023-01-13 05:01] VITALS: BP 135/78
[2023-01-13 05:40] LABS: BARBITURATES URINE NEGATIVE (NEGATIVE); BENZODIAZEPINES URINE NEGATIVE (NEGATIVE); COCAINE METABOLITE URINE NEGATIVE (NEGATIVE); METHADONE URINE NEGATIVE (NEGATIVE)
[2023-01-13 05:41] LABS: AMPHETAMINES LEVEL URINE POSITIVE (NEGATIVE); CANNABINOIDS URINE POSITIVE (NEGATIVE); OPIATES URINE NEGATIVE (NEGATIVE); PHENCYCLIDINE URINE NEGATIVE (NEGATIVE)
[2023-01-13] MEDS ORDERED: VENTAER INH (08:33)
[2023-01-13] MEDS ORDERED: FOLI1TAB11 PO (08:34)
[2023-01-13] MEDS ORDERED: THIA100T7 PO (08:34)
[2023-01-13] MEDS ORDERED: TREL1AER INH (08:34)
[2023-01-13] MEDS ORDERED: GABA-1171 PO (08:34)
[2023-01-13] MEDS ORDERED: QUET300T2 PO (08:34)
[2023-01-13] MEDS ORDERED: FERR1TAB8 PO (08:34)
[2023-01-13] MEDS ORDERED: HOME MED LIST COMPLETE! XX SCH (08:35)
[2023-01-13] MEDS ORDERED: FOLIC ACID 1MG TAB PO SCH (09:00)
[2023-01-13] MEDS ORDERED: MULTIVITAMINS/MINERALS THERAP 1 TAB PO SCH (09:00)
== END 2023-01-13 12:10 | disposition home or self-care (01) ==
LOC: M ED 01-13 09:14
DX: F10.129 Alcohol abuse with intoxication, unspecified (principal); Z79.899 Other long term (current) drug therapy; Z79.51 Long term (current) use of inhaled steroids; R56.9 Unspecified convulsions; F31.9 Bipolar disorder, unspecified; F19.10 Other psychoactive substance abuse, uncomplicated
CPT/HCPCS: 80048; 80076; 80143; 80307; 82077; 84443; 85027; 87635; 96372; 99285; J2060

== ENCOUNTER → 2023-01-25 | Outpatient (CLI) | payer OTHER, MEDICAID ==
[~2023-01-25] MED LIST changes: +TREL1AER INH
== END ==
LOC: M PLAIMG 10:54
PROVIDERS: ATTEND Internal Medicine Pulmonary Disease
DX: R91.8 Other nonspecific abnormal finding of lung field (principal)

== ENCOUNTER 2023-05-02 17:23 | Emergency (ER) | payer OTHER, MEDICAID ==
[~2023-05-02] VITALS: Ht 160 cm; Wt 45.4 kg
[~2023-05-02 17:23] MED LIST changes: +CEFD1CAP9 PO; -CEFD300C41 PO
[2023-05-02 18:12] LABS: BASO # 0.1 10^3/uL (0.0-0.2); BASO % 0.5 % (0.0-1.0); EOS % 0.2 % (0.0-3.0); HEMATOCRIT 32.6 % (36.0-47.0); HEMOGLOBIN 11.3 g/dl (12.0-15.5); LYMPH # 1.2 10^3/uL (1.5-5.0); LYMPH % 9.2 % (24.0-44.0); MEAN CORPUSCULAR HEMOGLOBIN 32.1 pg (27.0-33.0); MEAN CORPUSCULAR HGB CONC 34.7 g/dl (32.0-36.5); MEAN CORPUSCULAR VOLUME 92.6 fl (80.0-96.0); MONO # 0.7 10^3/uL (0.0-0.8); MONO % 5.5 % (2.0-8.0); NEUTROPHILS # 11.2 10^3/uL (1.5-8.5); NEUTROPHILS % 84.3 % (36.0-66.0); PLATELET COUNT, AUTOMATED 403 10^3/uL (150-450); RED BLOOD COUNT 3.52 10^6/uL (4.00-5.40); WHITE BLOOD COUNT 13.3 10^3/uL (4.0-10.0)
[2023-05-02 18:34] LABS: ETHYL ALCOHOL (ETHANOL) < 0.003 % (0.000-0.010)
[2023-05-02 18:36] LABS: ALBUMIN 4.1 G/DL (3.2-5.2); ALKALINE PHOSPHATASE 95 U/L (46-116); ALT/SGPT 21 U/L (7.0-40); AST/SGOT 35 U/L (<34); BILIRUBIN,DIRECT 0.4 MG/DL (<0.4); BILIRUBIN,TOTAL 1.1 MG/DL (0.3-1.2); BLOOD UREA NITROGEN 20 MG/DL (9-23); CALCIUM LEVEL 9.7 MG/DL (8.3-10.6); CARBON DIOXIDE LEVEL 23 MMOL/L (20-31); CHLORIDE LEVEL 97 MMOL/L (98-107); CREATININE FOR GFR 0.88 MG/DL (0.55-1.30); GLOMERULAR FILTRATION RATE > 60.0 (>45); GLUCOSE, FASTING 84 MG/DL (74-106); POTASSIUM SERUM 3.9 MMOL/L (3.5-5.1); SALICYLATE LEVEL < 3.0 MG/DL (<30); SODIUM LEVEL 131 MMOL/L (136-145); TOTAL PROTEIN 7.1 G/DL (5.7-8.2)
[2023-05-02 18:38] LABS: THYROID STIMULATING HORMONE 2.452 uIU/ML (0.55-4.78)
[2023-05-02 19:09] LABS: AMPHETAMINES LEVEL URINE POSITIVE (NEGATIVE); BARBITURATES URINE NEGATIVE (NEGATIVE); BENZODIAZEPINES URINE NEGATIVE (NEGATIVE); CANNABINOIDS URINE POSITIVE (NEGATIVE); COCAINE METABOLITE URINE NEGATIVE (NEGATIVE); METHADONE URINE NEGATIVE (NEGATIVE); OPIATES URINE NEGATIVE (NEGATIVE); PHENCYCLIDINE URINE NEGATIVE (NEGATIVE)
[2023-05-02 20:17] VITALS: BP 156/88; TEMP 97.6; O2SAT 100
== END 2023-05-02 20:38 | disposition home or self-care (01) ==
LOC: M ED 17:23
DX: F10.129 Alcohol abuse with intoxication, unspecified (principal); J44.9 Chronic obstructive pulmonary disease, unspecified; F31.9 Bipolar disorder, unspecified; Z79.51 Long term (current) use of inhaled steroids; Z79.899 Other long term (current) drug therapy

== ENCOUNTER → 2023-08-09 | Outpatient (REF) | payer OTHER, MEDICAID ==
[2023-08-09 18:19] LABS: BASO % 0.5 % (0.0-1.0); EOS # 0.1 10^3/uL (0.0-0.5); EOS % 1.3 % (0.0-3.0); HEMATOCRIT 38.7 % (36.0-47.0); HEMOGLOBIN 12.5 g/dl (12.0-15.5); LYMPH # 2.4 10^3/uL (1.5-5.0); LYMPH % 32.7 % (24.0-44.0); MEAN CORPUSCULAR HEMOGLOBIN 32.6 pg (27.0-33.0); MEAN CORPUSCULAR HGB CONC 32.3 g/dl (32.0-36.5); MEAN CORPUSCULAR VOLUME 100.8 fl (80.0-96.0); MONO # 0.6 10^3/uL (0.0-0.8); MONO % 7.9 % (2.0-8.0); NEUTROPHILS # 4.3 10^3/uL (1.5-8.5); NEUTROPHILS % 57.1 % (36.0-66.0); PLATELET COUNT, AUTOMATED 425 10^3/uL (150-450); RED BLOOD COUNT 3.84 10^6/uL (4.00-5.40); WHITE BLOOD COUNT 7.5 10^3/uL (4.0-10.0)
[2023-08-09 18:44] LABS: LIPASE 66 U/L (12-53)
[2023-08-09 18:46] LABS: ALBUMIN 3.9 G/DL (3.2-5.2); ALKALINE PHOSPHATASE 89 U/L (46-116); ALT/SGPT 29 U/L (7.0-40); AST/SGOT 34 U/L (<34); BILIRUBIN,TOTAL 0.4 MG/DL (0.3-1.2); BLOOD UREA NITROGEN 17 MG/DL (9-23); CALCIUM LEVEL 8.9 MG/DL (8.3-10.6); CARBON DIOXIDE LEVEL 30 MMOL/L (20-31); CHLORIDE LEVEL 98 MMOL/L (98-107); CHOLESTEROL LEVEL 250 MG/DL (<200); CHOLESTEROL RISK RATIO 2.32 (<5); CREATININE FOR GFR 0.59 MG/DL (0.55-1.30); GLOMERULAR FILTRATION RATE > 60.0 (>45); GLUCOSE, FASTING 82 MG/DL (74-106); HDL CHOLESTEROL 107.3 MG/DL (>40); LDL CHOLESTEROL 125.7 MG/DL (<100); NON-HDL-C 142.7 MG/DL; SODIUM LEVEL 135 MMOL/L (136-145); THYROID STIMULATING HORMONE 3.259 uIU/ML (0.55-4.78); TOTAL PROTEIN 7.7 G/DL (5.7-8.2); TRIGLYCERIDES LEVEL 85 MG/DL (<150)
[2023-08-09 18:47] LABS: TOTAL 25(OH) VITAMIN D 11.1 NG/ML (20.0-100.0)
== END ==
LOC: M LAB REF 17:45
PROVIDERS: ATTEND Pediatrics
DX: E55.9 Vitamin D deficiency, unspecified (principal); E78.5 Hyperlipidemia, unspecified; R63.4 Abnormal weight loss

== ENCOUNTER 2023-11-16 13:18 | Emergency (ER) | payer OTHER, MEDICAID ==
[~2023-11-16 13:18] MED LIST changes: +DOXY-323 PO; -DOXY-443 PO
== END 2023-11-16 13:27 | disposition left against medical advice (07) ==
LOC: EDBD 13:18 → M ED 13:18
DX: Z53.21 Procedure and treatment not carried out due to patient leaving prior to being seen by health care provider (principal)

== ENCOUNTER 2023-11-19 21:31 | Emergency (ER) | payer OTHER, MEDICAID ==
[~2023-11-19] VITALS: Ht 157.5 cm; Wt 42.6 kg
[2023-11-19 21:31] VITALS: BP 154/92; TEMP 97.8; O2SAT 96
== END 2023-11-19 22:20 | disposition left against medical advice (07) ==
LOC: M ED 21:31
DX: Z53.21 Procedure and treatment not carried out due to patient leaving prior to being seen by health care provider (principal)

== ENCOUNTER 2024-01-12 15:59 | Emergency (ER) | payer OTHER, MEDICAID ==
[~2024-01-12 15:59] MED LIST changes: +GABA-1490 PO; +GABA-1635 PO; -GABA600T4 PO; -GABA800T4 PO
[2024-01-12] MEDS: NS 1,000 ML IV ONE ×2 (16:13→18:20)
[2024-01-12 20:34] VITALS: BP 127/68; TEMP 97.1; O2SAT 96
== END 2024-01-12 20:37 | disposition home or self-care (01) ==
LOC: EDBD 15:59 → M ED 15:59
DX: F10.120 Alcohol abuse with intoxication, uncomplicated (principal); F31.9 Bipolar disorder, unspecified; F12.10 Cannabis abuse, uncomplicated; Z79.51 Long term (current) use of inhaled steroids; Z79.899 Other long term (current) drug therapy

== ENCOUNTER → 2024-02-21 | Outpatient (REF) | payer OTHER, MEDICAID ==
[~2024-02-21] MED LIST changes: -DOXY-323 PO; +DOXY-441 PO
[2024-02-21 18:29] LABS: BASO # 0.1 10^3/uL (0.0-0.2); BASO % 1.4 % (0.0-1.0); EOS # 0.3 10^3/uL (0.0-0.5); EOS % 4.8 % (0.0-3.0); HEMATOCRIT 40.4 % (36.0-47.0); HEMOGLOBIN 13.4 g/dl (12.0-15.5); LYMPH # 2.6 10^3/uL (1.5-5.0); LYMPH % 36.8 % (24.0-44.0); MEAN CORPUSCULAR HEMOGLOBIN 33.8 pg (27.0-33.0); MEAN CORPUSCULAR HGB CONC 33.2 g/dl (32.0-36.5); MEAN CORPUSCULAR VOLUME 101.8 fl (80.0-96.0); MONO # 0.6 10^3/uL (0.0-0.8); MONO % 8.8 % (2.0-8.0); NEUTROPHILS # 3.4 10^3/uL (1.5-8.5); NEUTROPHILS % 47.9 % (36.0-66.0); PLATELET COUNT, AUTOMATED 427 10^3/uL (150-450); RED BLOOD COUNT 3.97 10^6/uL (4.00-5.40)
[2024-02-21 18:56] LABS: LIPASE 52 U/L (12-53)
[2024-02-21 18:58] LABS: ALBUMIN 3.9 G/DL (3.2-5.2); ALKALINE PHOSPHATASE 89 U/L (46-116); ALT/SGPT 43 U/L (7.0-40); AST/SGOT 39 U/L (<34); BILIRUBIN,TOTAL 0.5 MG/DL (0.3-1.2); BLOOD UREA NITROGEN 14 MG/DL (9-23); CALCIUM LEVEL 9.6 MG/DL (8.3-10.6); CARBON DIOXIDE LEVEL 28 MMOL/L (20-31); CHLORIDE LEVEL 99 MMOL/L (98-107); CREATININE FOR GFR 0.57 MG/DL (0.55-1.30); GLOMERULAR FILTRATION RATE > 60.0 (>45); GLUCOSE, FASTING 89 MG/DL (74-106); POTASSIUM SERUM 4.8 MMOL/L (3.5-5.1); SODIUM LEVEL 132 MMOL/L (136-145); TOTAL PROTEIN 7.4 G/DL (5.7-8.2)
[2024-02-21 19:00] LABS: THYROID STIMULATING HORMONE 2.454 uIU/ML (0.55-4.78)
== END ==
LOC: M LAB REF 17:57
PROVIDERS: ATTEND Pediatrics
DX: R63.6 Underweight (principal); F10.20 Alcohol dependence, uncomplicated; Z68.1 Body mass index [BMI] 19.9 or less, adult; E07.9 Disorder of thyroid, unspecified

== ENCOUNTER 2024-06-08 01:02 | Emergency (ER) | payer OTHER, MEDICAID ==
[~2024-06-08] VITALS: Ht 162.6 cm; Wt 46.8 kg
[2024-06-08] MEDS: NS 500 ML IV ONE (01:15)
[2024-06-08] MEDS ORDERED: LORazepam 2 MG TAB PO PRN (01:15)
[2024-06-08 01:43] LABS: VENOUS BASE EXCESS 1.9 (-2.0-2.0); VENOUS HCO3 24.5 MMOL/L (23.0-27.0); VENOUS O2 SATURATION 92.8 % (60.0-80.0); VENOUS PARTIAL PRESSURE CO2 31.8 mmHg (38.0-50.0); VENOUS PARTIAL PRESSURE O2 67.4 mmHg (30.0-50.0); VENOUS PH 7.505 UNITS (7.330-7.430); VENOUS STANDARD HCO3 26.1 MMOL/L; VENOUS TOTAL CO2 25.5 MMOL/L (24.0-28.0)
[2024-06-08] MEDS: ASPIRIN 325 MG TAB PO ONE (02:01)
[2024-06-08] MEDS ORDERED: ISOVUE-370 76% 100ML VIAL As Ordered ONE (02:03)
[2024-06-08 02:09] LABS: INR 0.99; PARTIAL THROMBOPLASTIN TIME 26.7 SECONDS (24.8-34.2); PROTHROMBIN TIME 13.4 SECONDS (12.5-14.5)
[2024-06-08 02:12] LABS: ETHYL ALCOHOL (ETHANOL) 0.014 % (0.000-0.010)
[2024-06-08 02:14] LABS: SALICYLATE LEVEL < 3.0 MG/DL (<30)
[2024-06-08 02:34] LABS: BASO % 0.1 % (0.0-1.0); EOS # 0.1 10^3/uL (0.0-0.5); EOS % 0.5 % (0.0-3.0); HEMATOCRIT 27.2 % (36.0-47.0); HEMOGLOBIN 10.3 g/dl (12.0-15.5); LYMPH # 0.5 10^3/uL (1.5-5.0); LYMPH % 4.6 % (24.0-44.0); MEAN CORPUSCULAR HEMOGLOBIN 33.2 pg (27.0-33.0); MEAN CORPUSCULAR VOLUME 87.7 fl (80.0-96.0); MONO # 0.5 10^3/uL (0.0-0.8); MONO % 5.2 % (2.0-8.0); NEUTROPHILS # 9.3 10^3/uL (1.5-8.5); NEUTROPHILS % 88.8 % (36.0-66.0); PLATELET COUNT, AUTOMATED 128 10^3/uL (150-450); WHITE BLOOD COUNT 10.4 10^3/uL (4.0-10.0)
[2024-06-08] MEDS: LEVALBUTEROL 1.25MG 0.5ML CONCENTRATE NEB NEB ONE ×2 (02:34→02:35)
[2024-06-08 02:37] LABS: ALBUMIN 2.8 G/DL (3.2-5.2); ALKALINE PHOSPHATASE 222 U/L (35-104); ALT/SGPT 80 U/L (7.0-40); AST/SGOT 170 U/L (<34); BILIRUBIN,DIRECT 0.9 MG/DL (<0.4); BILIRUBIN,TOTAL 1.7 MG/DL (0.3-1.2); BLOOD UREA NITROGEN 10 MG/DL (9-23); CALCIUM LEVEL 6.7 MG/DL (8.3-10.6); CARBON DIOXIDE LEVEL 25 MMOL/L (20-31); CHLORIDE LEVEL 68 MMOL/L (98-107); CK-MB VALUE MASS 4.4 NG/ML (<3.6); CPK CREATINE PHOSPHOKINASE 163 U/L (34-145); CREATININE FOR GFR 0.32 MG/DL (0.55-1.30); GLOMERULAR FILTRATION RATE > 60.0 (>45); GLUCOSE, FASTING 126 MG/DL (74-106); MB/CK RELATIVE INDEX 2.69 (< OR =4); POTASSIUM SERUM 4.1 MMOL/L (3.5-5.1); SODIUM LEVEL 106 MMOL/L (136-145); THYROID STIMULATING HORMONE 1.138 uIU/ML (0.55-4.78); TOTAL PROTEIN 5.8 G/DL (5.7-8.2)
[2024-06-08 03:02] LABS: MEAN CORPUSCULAR HGB CONC 37.9 g/dl (32.0-36.5)
[2024-06-08] MEDS ORDERED: HEPARIN SOD (PORCINE) 5000UNITS/ML 1ML VIAL/SYRINGE IV PRN (03:10)
[2024-06-08] MEDS: CALCIUM GLUCONATE 1,000 MG in DEXTROSE 5% (D5W) MINI-BAG PLU 100 ML IV ONE (03:10)
[2024-06-08 03:13] LABS: LIPASE 24 U/L (12-53)
[2024-06-08 03:14] LABS: MAGNESIUM LEVEL 1.4 MG/DL (1.8-2.4)
[2024-06-08] MEDS: CLOPIDOGREL 75 MG TAB PO STA (03:23)
[2024-06-08] MEDS: HEPARIN SOD (PORCINE) 5000UNITS/ML 1ML VIAL/SYRINGE IV ONE (03:25)
[2024-06-08] MEDS: HEPARIN DRIP 25,000 UNITS in IV 1 EA IV SCH (03:31)
[2024-06-08 04:12] LABS: RSV AMPLIFICATION NEGATIVE (NEGATIVE)
[2024-06-08] MEDS: NS (Normal Saline) 0.9% 1,000 ML IV SCH (04:31)
[2024-06-08] MEDS: METOPROLOL 5 MG/5 ML VIAL IV SCH (04:32)
[2024-06-08 04:45] VITALS: TEMP 97.1
[2024-06-08 05:24] VITALS: BP 107/68; O2SAT 66
[2024-06-08] MEDS ORDERED: FOLIC ACID 1MG TAB PO SCH (09:00)
[2024-06-08] MEDS ORDERED: THIAMINE 100 MG TAB PO SCH (09:00)
[2024-06-08] MEDS ORDERED: MULTIVITAMINS/MINERALS THERAP 1 TAB PO SCH (09:00)
== END 2024-06-08 05:41 | disposition short-term general hospital (02) ==
LOC: EDBD 01:02 → M ED 01:02
DX: I21.9 Acute myocardial infarction, unspecified (principal); F10.120 Alcohol abuse with intoxication, uncomplicated; E87.1 Hypo-osmolality and hyponatremia; J44.9 Chronic obstructive pulmonary disease, unspecified; G40.909 Epilepsy, unspecified, not intractable, without status epilepticus; F31.9 Bipolar disorder, unspecified; F41.9 Anxiety disorder, unspecified; F32.A Depression, unspecified; F17.210 Nicotine dependence, cigarettes, uncomplicated; Z85.3 Personal history of malignant neoplasm of breast; Z79.51 Long term (current) use of inhaled steroids; Z79.899 Other long term (current) drug therapy
CPT/HCPCS: 70450; 71045; 71275; 72125; 80047; 80048; 80076; 80143; 82077; 82550; 82553; 82803; 83690; 83735; 84443; 84484; 85025; 85610; 85730; 86850; 86900; 86901; 87631; 93005; 93041; 94640; 94760; 96361; 96365; 96366; 96375; 99285; J0612; Q9967

== ENCOUNTER 2024-09-15 14:08 | Inpatient (IN) | payer MEDICARE, MEDICAID ==
[~2024-09-15] VITALS: Ht 162.6 cm; Wt 49.9 kg
[2024-09-15] VITALS (12 sets, daily range): BP systolic 99–186; BP diastolic 60–95; TEMP 97.6–98.3; O2SAT 92–97
[~2024-09-15 14:08] MED LIST changes: -ELIM5CRE2 TOP; +PERM60CR8 TOP
[2024-09-15 15:34] LABS: HEMATOCRIT 28.6 % (36.0-47.0); HEMOGLOBIN 10.6 g/dl (12.0-15.5); MEAN CORPUSCULAR HEMOGLOBIN 31.5 pg (27.0-33.0); MEAN CORPUSCULAR VOLUME 85.1 fl (80.0-96.0); PLATELET COUNT, AUTOMATED 226 10^3/uL (150-450); RED BLOOD COUNT 3.36 10^6/uL (4.00-5.40); WHITE BLOOD COUNT 15.3 10^3/uL (4.0-10.0)
[2024-09-15 15:36] LABS: MEAN CORPUSCULAR HGB CONC 37.1 g/dl (32.0-36.5)
[2024-09-15 15:37] LABS: OSMOLALITY SERUM 249 MOSM/KG (280-301)
[2024-09-15 15:52] LABS: THYROID STIMULATING HORMONE 0.546 uIU/ML (0.55-4.78)
[2024-09-15 16:00] LABS: ALBUMIN 1.8 G/DL (3.2-5.2); ALKALINE PHOSPHATASE 172 U/L (35-104); ALT/SGPT 29 U/L (7.0-40); AST/SGOT 71 U/L (<34); BILIRUBIN,DIRECT 0.5 MG/DL (<0.4); BILIRUBIN,TOTAL 0.8 MG/DL (0.3-1.2); BLOOD UREA NITROGEN < 5 MG/DL (9-23); CALCIUM LEVEL 7.3 MG/DL (8.3-10.6); CARBON DIOXIDE LEVEL 22 MMOL/L (20-31); CHLORIDE LEVEL 74 MMOL/L (98-107); CREATININE FOR GFR 0.18 MG/DL (0.55-1.30); GLOMERULAR FILTRATION RATE > 90.0 (>45); GLUCOSE, FASTING 130 MG/DL (74-106); POTASSIUM SERUM 3.8 MMOL/L (3.5-5.1); SODIUM LEVEL 108 MMOL/L (136-145); TOTAL PROTEIN 5.4 G/DL (5.7-8.2)
[2024-09-15 16:03] LABS: LYMPHOCYTES 1 % (16-44); MONOCYTES 1 % (0-5); NEUTROPHILS 93 % (28-66)
[2024-09-15 16:04] LABS: PLATELET ESTIMATE NORMAL (NORMAL)
[2024-09-15 16:05] LABS: TOXIC GRANULATION 1+; TOXIC VACUOLATION 2+
[2024-09-15] MEDS: THIAMINE 200MG 2ML VIAL IM ONE (16:24)
[2024-09-15 16:26] LABS: MAGNESIUM LEVEL 1.2 MG/DL (1.8-2.4)
[2024-09-15] MEDS: NS (Normal Saline) 0.9% 1,000 ML IV SCH (16:27)
[2024-09-15 16:30] LABS: FREE T4 0.94 NG/DL (0.89-1.76)
[2024-09-15 16:38] LABS: ETHYL ALCOHOL (ETHANOL) 0.131 % (0.000-0.010)
[2024-09-15] MEDS: COMBIVENT RESPIMAT 100-20MCG INHALER 4GM INH SCH (17:47)
[2024-09-15] MEDS: THIAMINE 100 MG TAB PO SCH (18:00)
[2024-09-15 18:18] LABS: APPEARANCE, URINE CLOUDY (CLEAR); BACTERIA, URINE AUTO 1+ (NEGATIVE); BILIRUBIN, URINE AUTO NEGATIVE (NEGATIVE); BLOOD, URINE BLOOD NEGATIVE (NEGATIVE); COLOR, URINE YELLOW (YELLOW); GLUCOSE, URINE (UA) AUTO NEGATIVE (NEGATIVE); KETONE, URINE AUTO NEGATIVE (NEGATIVE); LEUKOCYTE ESTERASE, URINE AUTO NEGATIVE (NEGATIVE); NITRITE, URINE AUTO NEGATIVE (NEGATIVE); PROTEIN, URINE AUTO 1+ mg/dL (NEGATIVE); RBC, URINE AUTO 0 /HPF (0-3); SPECIFIC GRAVITY URINE AUTO 1.009 (1.002-1.035); SQUAMOUS EPITHELIAL CELL UR AU 1 /HPF (0-6); WBC, URINE AUTO 1 /HPF (0-3)
[2024-09-15 18:32] LABS: AMPHETAMINES LEVEL URINE NEGATIVE (NEGATIVE); BARBITURATES URINE NEGATIVE (NEGATIVE); BENZODIAZEPINES URINE NEGATIVE (NEGATIVE); CANNABINOIDS URINE NEGATIVE (NEGATIVE); COCAINE METABOLITE URINE NEGATIVE (NEGATIVE); METHADONE URINE NEGATIVE (NEGATIVE); OPIATES URINE NEGATIVE (NEGATIVE); PHENCYCLIDINE URINE NEGATIVE (NEGATIVE)
[2024-09-15 18:35] LABS: CREATININE,RANDOM URINE 19.6 MG/DL
[2024-09-15] MEDS: FOLIC ACID 1MG TAB PO SCH (18:35)
[2024-09-15] MEDS: MULTIVITAMINS/MINERALS THERAP 1 TAB PO SCH (18:36)
[2024-09-15] MEDS: FAMOTIDINE IV BAG 20 MG in IV 1 EA IV SCH (18:45)
[2024-09-15] MEDS: MAG SULF 1GM/100ML (MAG RUN) 1 GM in IV 1 EA IV SCH ×2 (18:46→21:30)
[2024-09-15] MEDS: MAG SULF 1GM/100ML (MAG RUN) 1 GM in IV 1 EA IV ONE (18:46)
[2024-09-15 19:28] LABS: INR 1.2; PROTHROMBIN TIME 15.5 SECONDS (12.5-14.5)
[2024-09-15 19:52] LABS: BLOOD UREA NITROGEN < 5 MG/DL (9-23); CALCIUM LEVEL 7.5 MG/DL (8.3-10.6); CARBON DIOXIDE LEVEL 23 MMOL/L (20-31); CHLORIDE LEVEL 73 MMOL/L (98-107); CREATININE FOR GFR 0.19 MG/DL (0.55-1.30); GLOMERULAR FILTRATION RATE > 90.0 (>45); GLUCOSE, FASTING 107 MG/DL (74-106); MAGNESIUM LEVEL 1.3 MG/DL (1.8-2.4); PHOSPHORUS LEVEL 3.4 MG/DL (2.4-5.1); POTASSIUM SERUM 2.7 MMOL/L (3.5-5.1); SODIUM LEVEL 110 MMOL/L (136-145)
[2024-09-15 20:26] LABS: CORTISOL PM > 150.0 UG/DL (3.1-16.7)
[2024-09-15] MEDS: POTASSIUM CHLORIDE 10% LIQ 20MEQ/15ML UDC PO SCH (20:29)
[2024-09-15] MEDS: KCL 20MEQ in NS 1000ML 1,000 ML IV SCH (20:32)
[2024-09-15] MEDS ORDERED: GABAPENTIN 100 MG CAP PO ONE (21:00)
[2024-09-15] MEDS: LORazepam 2 MG TAB PO PRN (21:14)
[2024-09-15] MEDS: KCL 10MEQ/100ML SWI (KRUN) 10 MEQ in IV 1 EA IV SCH (21:26)
[2024-09-15] MEDS: LORazepam 2 MG/ML 1ML VIAL IV ONE (21:47)
[2024-09-16] VITALS (26 sets, daily range): BP systolic 87–152; BP diastolic 57–85; TEMP 98.2–100; O2SAT 87–98
[2024-09-16 00:20] LABS: BLOOD UREA NITROGEN 6 MG/DL (9-23); CALCIUM LEVEL 6.9 MG/DL (8.3-10.6); CARBON DIOXIDE LEVEL 26 MMOL/L (20-31); CHLORIDE LEVEL 78 MMOL/L (98-107); CREATININE FOR GFR 0.26 MG/DL (0.55-1.30); GLOMERULAR FILTRATION RATE > 90.0 (>45); GLUCOSE, FASTING 134 MG/DL (74-106); MAGNESIUM LEVEL 2.5 MG/DL (1.8-2.4); SODIUM LEVEL 111 MMOL/L (136-145)
[2024-09-16] MEDS ORDERED: KCL 10MEQ/100ML SWI (KRUN) 10 MEQ in IV 1 EA IV SCH (02:00)
[2024-09-16 04:11] LABS: BLOOD UREA NITROGEN 7 MG/DL (9-23); CALCIUM LEVEL 6.8 MG/DL (8.3-10.6); CARBON DIOXIDE LEVEL 26 MMOL/L (20-31); CHLORIDE LEVEL 81 MMOL/L (98-107); CREATININE FOR GFR 0.31 MG/DL (0.55-1.30); GLOMERULAR FILTRATION RATE > 90.0 (>45); GLUCOSE, FASTING 90 MG/DL (74-106); MAGNESIUM LEVEL 2.6 MG/DL (1.8-2.4); POTASSIUM SERUM 3.7 MMOL/L (3.5-5.1); SODIUM LEVEL 112 MMOL/L (136-145)
[2024-09-16 06:39] LABS: HEMATOCRIT 24.3 % (36.0-47.0); MEAN CORPUSCULAR HEMOGLOBIN 31.7 pg (27.0-33.0); MEAN CORPUSCULAR VOLUME 85.6 fl (80.0-96.0); PLATELET COUNT, AUTOMATED 192 10^3/uL (150-450); RED BLOOD COUNT 2.84 10^6/uL (4.00-5.40); WHITE BLOOD COUNT 20.3 10^3/uL (4.0-10.0)
[2024-09-16 07:03] LABS: ALBUMIN 1.5 G/DL (3.2-5.2); ALKALINE PHOSPHATASE 144 U/L (35-104); ALT/SGPT 22 U/L (7.0-40); AST/SGOT 37 U/L (<34); BILIRUBIN,TOTAL 0.7 MG/DL (0.3-1.2); BLOOD UREA NITROGEN 8 MG/DL (9-23); CALCIUM LEVEL 7.2 MG/DL (8.3-10.6); CARBON DIOXIDE LEVEL 25 MMOL/L (20-31); CHLORIDE LEVEL 82 MMOL/L (98-107); CREATININE FOR GFR 0.32 MG/DL (0.55-1.30); GLOMERULAR FILTRATION RATE > 90.0 (>45); GLUCOSE, FASTING 91 MG/DL (74-106); MAGNESIUM LEVEL 2.4 MG/DL (1.8-2.4); PHOSPHORUS LEVEL 3.1 MG/DL (2.4-5.1); POTASSIUM SERUM 3.6 MMOL/L (3.5-5.1); SODIUM LEVEL 113 MMOL/L (136-145); TOTAL PROTEIN 4.6 G/DL (5.7-8.2)
[2024-09-16] MEDS: SYMBICORT 160/4.5MCG INHALER 6GM INH SCH (08:00)
[2024-09-16] MEDS: TIOTROPIUM BROM 2.5MCG/ACTUATION 4GM INH INH SCH (08:00)
[2024-09-16] MEDS ORDERED: LORazepam 2 MG/ML 1ML VIAL IV PRN (08:50)
[2024-09-16] MEDS: THIAMINE 100 MG TAB PO SCH (09:00)
[2024-09-16] MEDS ORDERED: ENOXAPARIN 30MG/0.3ML SYRINGE (J1650 PER 10MG) SC SCH (09:00)
[2024-09-16] MEDS: ENOXAPARIN 60MG/0.6ML SYRINGE (J1650 PER 10MG) SC SCH (09:43)
[2024-09-16] MEDS: KCL 10MEQ/100ML SWI (KRUN) 10 MEQ in IV 1 EA IV SCH (09:44)
[2024-09-16] MEDS: cefTRIAXone SOD 1 GM in DEXTROSE 5% (D5W) ADV/MINI-BAG 50 ML IV SCH (09:44)
[2024-09-16 10:37] LABS: PERCENT SATURATION 7.2 % (13.2-45.0)
[2024-09-16 10:38] LABS: BLOOD UREA NITROGEN 11 MG/DL (9-23); CALCIUM LEVEL 7.4 MG/DL (8.3-10.6); CARBON DIOXIDE LEVEL 23 MMOL/L (20-31); CHLORIDE LEVEL 84 MMOL/L (98-107); CREATININE FOR GFR 0.35 MG/DL (0.55-1.30); GLOMERULAR FILTRATION RATE > 90.0 (>45); GLUCOSE, FASTING 98 MG/DL (74-106); POTASSIUM SERUM 3.6 MMOL/L (3.5-5.1); SODIUM LEVEL 116 MMOL/L (136-145)
[2024-09-16] MEDS: DOXYCYCLINE HYCLATE 100 MG in DEXTROSE 5% (D5W) MINI-BAG PLU 100 ML IV SCH (10:39)
[2024-09-16 10:40] LABS: FERRITIN 399.1 NG/ML (7.3-270.7); FOLATE 7.43 NG/ML (>5.4)
[2024-09-16] MEDS: D5W 500 ML IV SCH (10:56)
[2024-09-16] MEDS: D5W 1,000 ML IV SCH (10:57)
[2024-09-16 15:04] LABS: BLOOD UREA NITROGEN 11 MG/DL (9-23); CALCIUM LEVEL 7.3 MG/DL (8.3-10.6); CARBON DIOXIDE LEVEL 23 MMOL/L (20-31); CHLORIDE LEVEL 81 MMOL/L (98-107); CREATININE FOR GFR 0.33 MG/DL (0.55-1.30); GLOMERULAR FILTRATION RATE > 90.0 (>45); GLUCOSE, FASTING 126 MG/DL (74-106); POTASSIUM SERUM 3.8 MMOL/L (3.5-5.1); SODIUM LEVEL 111 MMOL/L (136-145)
[2024-09-16] MEDS: NS (Normal Saline) 0.9% 1,000 ML IV SCH (15:10)
[2024-09-16] MEDS ORDERED: GABA-1172 PO (15:25)
[2024-09-16] MEDS ORDERED: SPIR50TA4 PO (15:25)
[2024-09-16] MEDS ORDERED: PANT40TA29 PO (15:27)
[2024-09-16] MEDS ORDERED: LIDO1ADH52 TOP (15:27)
[2024-09-16] MEDS ORDERED: METO1TAB32 PO (15:28)
[2024-09-16] MEDS ORDERED: ENTR1TAB PO (15:29)
[2024-09-16] MEDS ORDERED: JARD1TAB PO (15:29)
[2024-09-16] MEDS ORDERED: MAGN400T35 PO (15:30)
[2024-09-16] MEDS ORDERED: HOME MED LIST COMPLETE! XX SCH (15:35)
[2024-09-16 19:49] LABS: BLOOD UREA NITROGEN 11 MG/DL (9-23); CALCIUM LEVEL 7.6 MG/DL (8.3-10.6); CARBON DIOXIDE LEVEL 24 MMOL/L (20-31); CHLORIDE LEVEL 81 MMOL/L (98-107); CREATININE FOR GFR 0.31 MG/DL (0.55-1.30); GLOMERULAR FILTRATION RATE > 90.0 (>45); GLUCOSE, FASTING 80 MG/DL (74-106); POTASSIUM SERUM 3.8 MMOL/L (3.5-5.1); SODIUM LEVEL 113 MMOL/L (136-145)
[2024-09-17] VITALS (12 sets, daily range): BP systolic 110–154; BP diastolic 69–90; TEMP 98.4–100.1; O2SAT 91–96
[2024-09-17 00:28] LABS: BLOOD UREA NITROGEN 12 MG/DL (9-23); CALCIUM LEVEL 7.2 MG/DL (8.3-10.6); CARBON DIOXIDE LEVEL 23 MMOL/L (20-31); CHLORIDE LEVEL 84 MMOL/L (98-107); CREATININE FOR GFR 0.29 MG/DL (0.55-1.30); GLOMERULAR FILTRATION RATE > 90.0 (>45); GLUCOSE, FASTING 78 MG/DL (74-106); POTASSIUM SERUM 3.3 MMOL/L (3.5-5.1); SODIUM LEVEL 115 MMOL/L (136-145)
[2024-09-17] MEDS: KCL 10MEQ/100ML SWI (KRUN) 10 MEQ in IV 1 EA IV SCH ×2 (00:42→03:52)
[2024-09-17] MEDS: COMBIVENT RESPIMAT 100-20MCG INHALER 4GM INH PRN (02:11)
[2024-09-17 03:38] LABS: BLOOD UREA NITROGEN 7 MG/DL (9-23); CALCIUM LEVEL 7.4 MG/DL (8.3-10.6); CARBON DIOXIDE LEVEL 23 MMOL/L (20-31); CHLORIDE LEVEL 85 MMOL/L (98-107); CREATININE FOR GFR 0.24 MG/DL (0.55-1.30); GLOMERULAR FILTRATION RATE > 90.0 (>45); GLUCOSE, FASTING 80 MG/DL (74-106); POTASSIUM SERUM 3.2 MMOL/L (3.5-5.1); SODIUM LEVEL 116 MMOL/L (136-145)
[2024-09-17 07:42] LABS: ALBUMIN 1.5 G/DL (3.2-5.2); BILIRUBIN,DIRECT 0.3 MG/DL (<0.4); BILIRUBIN,TOTAL 0.5 MG/DL (0.3-1.2); MAGNESIUM LEVEL 1.5 MG/DL (1.8-2.4); PHOSPHORUS LEVEL 3.2 MG/DL (2.4-5.1); TOTAL PROTEIN 4.8 G/DL (5.7-8.2)
[2024-09-17 07:47] LABS: BLOOD UREA NITROGEN 10 MG/DL (9-23); CALCIUM LEVEL 7.7 MG/DL (8.3-10.6); CARBON DIOXIDE LEVEL 21 MMOL/L (20-31); CHLORIDE LEVEL 87 MMOL/L (98-107); CREATININE FOR GFR 0.28 MG/DL (0.55-1.30); GLOMERULAR FILTRATION RATE > 90.0 (>45); GLUCOSE, FASTING 74 MG/DL (74-106); POTASSIUM SERUM 3.8 MMOL/L (3.5-5.1); SODIUM LEVEL 117 MMOL/L (136-145)
[2024-09-17 08:42] LABS: BASO % 0.1 % (0.0-1.0); HEMATOCRIT 24.9 % (36.0-47.0); HEMOGLOBIN 8.9 g/dl (12.0-15.5); LYMPH # 0.8 10^3/uL (1.5-5.0); LYMPH % 5.2 % (24.0-44.0); MEAN CORPUSCULAR HEMOGLOBIN 31.7 pg (27.0-33.0); MEAN CORPUSCULAR HGB CONC 35.7 g/dl (32.0-36.5); MEAN CORPUSCULAR VOLUME 88.6 fl (80.0-96.0); MONO # 0.6 10^3/uL (0.0-0.8); NEUTROPHILS # 14.3 10^3/uL (1.5-8.5); NEUTROPHILS % 89.6 % (36.0-66.0); PLATELET COUNT, AUTOMATED 242 10^3/uL (150-450); RED BLOOD COUNT 2.81 10^6/uL (4.00-5.40); WHITE BLOOD COUNT 15.9 10^3/uL (4.0-10.0)
[2024-09-17 08:57] LABS: PROCALCITONIN 0.34 ng/ml
[2024-09-17] MEDS ORDERED: MAG SULF 1GM/100ML (MAG RUN) 1 GM in IV 1 EA IV SCH (09:00)
[2024-09-17] MEDS ORDERED: ISOVUE-370 76% 100ML VIAL As Ordered ONE (09:27)
[2024-09-17] MEDS: THIAMINE 200MG 2ML VIAL IM SCH (10:09)
[2024-09-17] MEDS: MAG SULF 1GM/100ML (MAG RUN) 1 GM in IV 1 EA IV SCH (10:51)
[2024-09-17 11:35] LABS: BLOOD UREA NITROGEN 9 MG/DL (9-23); CALCIUM LEVEL 7.5 MG/DL (8.3-10.6); CARBON DIOXIDE LEVEL 24 MMOL/L (20-31); CHLORIDE LEVEL 86 MMOL/L (98-107); CREATININE FOR GFR 0.27 MG/DL (0.55-1.30); GLOMERULAR FILTRATION RATE > 90.0 (>45); GLUCOSE, FASTING 100 MG/DL (74-106); POTASSIUM SERUM 3.3 MMOL/L (3.5-5.1); SODIUM LEVEL 118 MMOL/L (136-145)
[2024-09-17] MEDS ORDERED: KCL 10MEQ/100ML SWI (KRUN) 10 MEQ in IV 1 EA IV SCH (13:00)
[2024-09-17] MEDS: POTASSIUM CHLORIDE 10MEQ SR TABLET PO ONE (13:12)
[2024-09-17 16:27] LABS: BLOOD UREA NITROGEN 8 MG/DL (9-23); CALCIUM LEVEL 7.5 MG/DL (8.3-10.6); CARBON DIOXIDE LEVEL 20 MMOL/L (20-31); CHLORIDE LEVEL 85 MMOL/L (98-107); CREATININE FOR GFR 0.27 MG/DL (0.55-1.30); GLOMERULAR FILTRATION RATE > 90.0 (>45); GLUCOSE, FASTING 109 MG/DL (74-106); SODIUM LEVEL 115 MMOL/L (136-145)
[2024-09-18] VITALS (11 sets, daily range): BP systolic 88–163; BP diastolic 63–86; TEMP 98–99.1; O2SAT 93–98
[2024-09-18 02:18] LABS: BLOOD UREA NITROGEN 9 MG/DL (9-23); CALCIUM LEVEL 7.7 MG/DL (8.3-10.6); CARBON DIOXIDE LEVEL 25 MMOL/L (20-31); CHLORIDE LEVEL 88 MMOL/L (98-107); GLOMERULAR FILTRATION RATE > 90.0 (>45); GLUCOSE, FASTING 99 MG/DL (74-106); POTASSIUM SERUM 2.7 MMOL/L (3.5-5.1); SODIUM LEVEL 120 MMOL/L (136-145)
[2024-09-18] MEDS: POTASSIUM CHLORIDE 10% LIQ 20MEQ/15ML UDC PO ONE (02:50)
[2024-09-18] MEDS: KCL 10MEQ/100ML SWI (KRUN) 10 MEQ in IV 1 EA IV SCH (03:06)
[2024-09-18] MEDS: MAG SULF 1GM/100ML (MAG RUN) 1 GM in IV 1 EA IV SCH (03:31)
[2024-09-18 06:24] LABS: HEMATOCRIT 24.7 % (36.0-47.0); HEMOGLOBIN 8.6 g/dl (12.0-15.5); MEAN CORPUSCULAR HEMOGLOBIN 31.2 pg (27.0-33.0); MEAN CORPUSCULAR HGB CONC 34.8 g/dl (32.0-36.5); MEAN CORPUSCULAR VOLUME 89.5 fl (80.0-96.0); PLATELET COUNT, AUTOMATED 263 10^3/uL (150-450); RED BLOOD COUNT 2.76 10^6/uL (4.00-5.40); WHITE BLOOD COUNT 9.9 10^3/uL (4.0-10.0)
[2024-09-18 06:47] LABS: BLOOD UREA NITROGEN 8 MG/DL (9-23); CALCIUM LEVEL 7.4 MG/DL (8.3-10.6); CARBON DIOXIDE LEVEL 26 MMOL/L (20-31); CHLORIDE LEVEL 91 MMOL/L (98-107); GLOMERULAR FILTRATION RATE > 90.0 (>45); GLUCOSE, FASTING 102 MG/DL (74-106); MAGNESIUM LEVEL 2.3 MG/DL (1.8-2.4); SODIUM LEVEL 123 MMOL/L (136-145)
[2024-09-18] MEDS: KCL 20MEQ in NS 1000ML 1,000 ML IV SCH (09:08)
[2024-09-18] MEDS ORDERED: NS (Normal Saline) 0.9% 1,000 ML IV SCH (09:40)
[2024-09-18] MEDS: FERRIC CARBOXYMALTOSE INJ 750 MG, VIAL MATE ADAPTER 1 EACH in NS 100 ML IV ONE (10:12)
[2024-09-18] MEDS ORDERED: EPINEPHrine INJ 1 MG/ML 1ML AMP IM PRN (10:25)
[2024-09-18 11:21] LABS: BLOOD UREA NITROGEN 8 MG/DL (9-23); CALCIUM LEVEL 7.4 MG/DL (8.3-10.6); CARBON DIOXIDE LEVEL 23 MMOL/L (20-31); CHLORIDE LEVEL 90 MMOL/L (98-107); CREATININE FOR GFR 0.27 MG/DL (0.55-1.30); GLOMERULAR FILTRATION RATE > 90.0 (>45); GLUCOSE, FASTING 143 MG/DL (74-106); POTASSIUM SERUM 3.5 MMOL/L (3.5-5.1); SODIUM LEVEL 122 MMOL/L (136-145)
[2024-09-18 15:29] LABS: BLOOD UREA NITROGEN 8 MG/DL (9-23); CALCIUM LEVEL 7.5 MG/DL (8.3-10.6); CARBON DIOXIDE LEVEL 25 MMOL/L (20-31); CHLORIDE LEVEL 93 MMOL/L (98-107); CREATININE FOR GFR 0.33 MG/DL (0.55-1.30); GLOMERULAR FILTRATION RATE > 90.0 (>45); GLUCOSE, FASTING 97 MG/DL (74-106); POTASSIUM SERUM 3.8 MMOL/L (3.5-5.1); SODIUM LEVEL 124 MMOL/L (136-145)
[2024-09-18] MEDS ORDERED: ACETAMINOPHEN 325 MG TAB PO PRN (17:25)
[2024-09-18] MEDS: GASTROGRAFIN SOLUTION 30ML PO SCH (18:16)
[2024-09-18 19:24] LABS: BLOOD UREA NITROGEN 6 MG/DL (9-23); CALCIUM LEVEL 7.4 MG/DL (8.3-10.6); CARBON DIOXIDE LEVEL 25 MMOL/L (20-31); CHLORIDE LEVEL 90 MMOL/L (98-107); CREATININE FOR GFR 0.33 MG/DL (0.55-1.30); GLOMERULAR FILTRATION RATE > 90.0 (>45); GLUCOSE, FASTING 125 MG/DL (74-106); POTASSIUM SERUM 3.6 MMOL/L (3.5-5.1); SODIUM LEVEL 124 MMOL/L (136-145)
[2024-09-18] MEDS: DOXYCYCLINE HYCLATE 100MG TABLET PO SCH (20:16)
[2024-09-18] MEDS: QUEtiapine FUMARATE 100 MG TAB PO SCH (20:16)
[2024-09-18 23:12] LABS: BLOOD UREA NITROGEN 6 MG/DL (9-23); CALCIUM LEVEL 7.2 MG/DL (8.3-10.6); CARBON DIOXIDE LEVEL 28 MMOL/L (20-31); CHLORIDE LEVEL 94 MMOL/L (98-107); CREATININE FOR GFR 0.36 MG/DL (0.55-1.30); GLOMERULAR FILTRATION RATE > 90.0 (>45); GLUCOSE, FASTING 126 MG/DL (74-106); POTASSIUM SERUM 3.1 MMOL/L (3.5-5.1); SODIUM LEVEL 129 MMOL/L (136-145)
[2024-09-19] MEDS: POTASSIUM CHLORIDE 10MEQ SR TABLET PO ONE (00:12)
[2024-09-19 03:10] LABS: BLOOD UREA NITROGEN < 5 MG/DL (9-23); CALCIUM LEVEL 7.5 MG/DL (8.3-10.6); CARBON DIOXIDE LEVEL 27 MMOL/L (20-31); CHLORIDE LEVEL 96 MMOL/L (98-107); CREATININE FOR GFR 0.32 MG/DL (0.55-1.30); GLOMERULAR FILTRATION RATE > 90.0 (>45); GLUCOSE, FASTING 99 MG/DL (74-106); SODIUM LEVEL 130 MMOL/L (136-145)
[2024-09-19 03:29] VITALS: BP 96/67; TEMP 97.5; O2SAT 93; O2SAT 95
[2024-09-19] MEDS: KCL 10MEQ/100ML SWI (KRUN) 10 MEQ in IV 1 EA IV ONE (04:21)
[2024-09-19 07:06] LABS: BLOOD UREA NITROGEN < 5 MG/DL (9-23); CALCIUM LEVEL 7.4 MG/DL (8.3-10.6); CARBON DIOXIDE LEVEL 28 MMOL/L (20-31); CHLORIDE LEVEL 96 MMOL/L (98-107); CREATININE FOR GFR 0.29 MG/DL (0.55-1.30); GLOMERULAR FILTRATION RATE > 90.0 (>45); GLUCOSE, FASTING 85 MG/DL (74-106); POTASSIUM SERUM 3.5 MMOL/L (3.5-5.1); SODIUM LEVEL 131 MMOL/L (136-145)
[2024-09-19 07:13] VITALS: BP 101/69; TEMP 98.3; O2SAT 98
[2024-09-19 08:00] LABS: HEMATOCRIT 22.6 % (36.0-47.0); HEMOGLOBIN 7.8 g/dl (12.0-15.5); MEAN CORPUSCULAR HEMOGLOBIN 31.8 pg (27.0-33.0); MEAN CORPUSCULAR HGB CONC 34.5 g/dl (32.0-36.5); MEAN CORPUSCULAR VOLUME 92.2 fl (80.0-96.0); PLATELET COUNT, AUTOMATED 249 10^3/uL (150-450); RED BLOOD COUNT 2.45 10^6/uL (4.00-5.40)
[2024-09-19] MEDS ORDERED: THIAMINE 200MG 2ML VIAL IV SCH (09:00)
[2024-09-19] MEDS: KCL 20MEQ in NS 1000ML 1,000 ML IV SCH (09:00)
[2024-09-19 11:13] LABS: PROCALCITONIN 0.15 ng/ml
[2024-09-19 11:52] VITALS: BP 108/78; TEMP 97.9; O2SAT 96
[2024-09-19] MEDS ORDERED: VARIBAR PUDDING 40% w/v 230ML TUBE As Ordered ONE (12:42)
[2024-09-19] MEDS ORDERED: VARIBAR NECTAR 40% w/v 240ML SUSP BTL As Ordered ONE (12:43)
[2024-09-19] MEDS ORDERED: E-Z-PAQUE 96% w/w SUSP 176GM BTL As Ordered ONE (12:43)
[2024-09-19] MEDS ORDERED: BARIUM SULFATE 700 MG TABLET As Ordered ONE (12:43)
[2024-09-19 15:59] VITALS: BP 138/78; TEMP 98.2; O2SAT 94
[2024-09-19 18:46] LABS: BLOOD UREA NITROGEN 6 MG/DL (9-23); CALCIUM LEVEL 7.7 MG/DL (8.3-10.6); CARBON DIOXIDE LEVEL 29 MMOL/L (20-31); CHLORIDE LEVEL 92 MMOL/L (98-107); CREATININE FOR GFR 0.28 MG/DL (0.55-1.30); GLOMERULAR FILTRATION RATE > 90.0 (>45); GLUCOSE, FASTING 139 MG/DL (74-106); POTASSIUM SERUM 3.2 MMOL/L (3.5-5.1); SODIUM LEVEL 129 MMOL/L (136-145)
[2024-09-19 19:37] VITALS: BP 131/86; TEMP 98.3; O2SAT 91
[2024-09-19 19:52] LABS: MAGNESIUM LEVEL 1.3 MG/DL (1.8-2.4)
[2024-09-19] MEDS: POTASSIUM CHLORIDE 10MEQ SR TABLET PO SCH (20:14)
[2024-09-20] VITALS (8 sets, daily range): BP systolic 99–164; BP diastolic 65–95; TEMP 97.1–98.2; O2SAT 88–97
[2024-09-20 04:48] LABS: BLOOD UREA NITROGEN 6 MG/DL (9-23); CALCIUM LEVEL 7.7 MG/DL (8.3-10.6); CARBON DIOXIDE LEVEL 28 MMOL/L (20-31); CHLORIDE LEVEL 97 MMOL/L (98-107); CREATININE FOR GFR 0.31 MG/DL (0.55-1.30); GLOMERULAR FILTRATION RATE > 90.0 (>45); GLUCOSE, FASTING 148 MG/DL (74-106); POTASSIUM SERUM 3.9 MMOL/L (3.5-5.1); SODIUM LEVEL 133 MMOL/L (136-145)
[2024-09-20 07:38] LABS: HEMATOCRIT 24.9 % (36.0-47.0); HEMOGLOBIN 8.4 g/dl (12.0-15.5); MEAN CORPUSCULAR HEMOGLOBIN 32.2 pg (27.0-33.0); MEAN CORPUSCULAR HGB CONC 33.7 g/dl (32.0-36.5); MEAN CORPUSCULAR VOLUME 95.4 fl (80.0-96.0); PLATELET COUNT, AUTOMATED 327 10^3/uL (150-450); RED BLOOD COUNT 2.61 10^6/uL (4.00-5.40)
[2024-09-20 07:40] LABS: MAGNESIUM LEVEL 1.3 MG/DL (1.8-2.4)
[2024-09-20] MEDS: CEFUROXIME 500 MG TAB PO SCH (08:08)
[2024-09-20] MEDS: MAG SULF 1GM/100ML (MAG RUN) 1 GM in IV 1 EA IV ONE (12:30)
[2024-09-20 19:14] LABS: BLOOD UREA NITROGEN 9 MG/DL (9-23); CALCIUM LEVEL 8.5 MG/DL (8.3-10.6); CARBON DIOXIDE LEVEL 27 MMOL/L (20-31); CHLORIDE LEVEL 93 MMOL/L (98-107); CREATININE FOR GFR 0.29 MG/DL (0.55-1.30); GLOMERULAR FILTRATION RATE > 90.0 (>45); GLUCOSE, FASTING 105 MG/DL (74-106); MAGNESIUM LEVEL 1.6 MG/DL (1.8-2.4); POTASSIUM SERUM 4.2 MMOL/L (3.5-5.1); SODIUM LEVEL 129 MMOL/L (136-145)
[2024-09-20] MEDS: AUGMENTIN 875 MG TAB PO SCH (20:26)
[2024-09-21 05:08] VITALS: BP 109/70; TEMP 97.3; O2SAT 95
[2024-09-21 06:19] LABS: HEMATOCRIT 24.7 % (36.0-47.0); HEMOGLOBIN 8.2 g/dl (12.0-15.5); MEAN CORPUSCULAR HEMOGLOBIN 31.7 pg (27.0-33.0); MEAN CORPUSCULAR HGB CONC 33.2 g/dl (32.0-36.5); MEAN CORPUSCULAR VOLUME 95.4 fl (80.0-96.0); PLATELET COUNT, AUTOMATED 420 10^3/uL (150-450); RED BLOOD COUNT 2.59 10^6/uL (4.00-5.40); WHITE BLOOD COUNT 7.4 10^3/uL (4.0-10.0)
[2024-09-21 06:47] LABS: BLOOD UREA NITROGEN 9 MG/DL (9-23); CALCIUM LEVEL 8.2 MG/DL (8.3-10.6); CARBON DIOXIDE LEVEL 28 MMOL/L (20-31); CHLORIDE LEVEL 94 MMOL/L (98-107); CREATININE FOR GFR 0.29 MG/DL (0.55-1.30); GLOMERULAR FILTRATION RATE > 90.0 (>45); GLUCOSE, FASTING 85 MG/DL (74-106); POTASSIUM SERUM 3.9 MMOL/L (3.5-5.1); SODIUM LEVEL 129 MMOL/L (136-145)
[2024-09-21 07:52] LABS: MAGNESIUM LEVEL 1.6 MG/DL (1.8-2.4)
[2024-09-21 08:00] VITALS: BP 111/71; TEMP 96.6; O2SAT 96
[2024-09-21] MEDS ORDERED: MAGN400T33 PO (09:10)
[2024-09-21] MEDS ORDERED: AMOX875T2 PO (09:10)
[2024-09-21 12:00] VITALS: BP 150/85; TEMP 97; O2SAT 96
[2024-09-21 14:00] VITALS: BP 133/86
== END 2024-09-21 15:40 | disposition home or self-care (01) | DRG 640 ==
LOC: EDBD 14:08 → M ED 14:08 → M ED INP 16:48 → M ICU 18:10 → M PCU 09-18 17:50 → M MS5PR 09-20 21:32
PROVIDERS: ADMIT Internal Medicine; ATTEND Student in an Organized Health Care Education/Training Program
DX: E87.1 Hypo-osmolality and hyponatremia (principal); J69.0 Pneumonitis due to inhalation of food and vomit; R64 Cachexia; E46 Unspecified protein-calorie malnutrition; F10.239 Alcohol dependence with withdrawal, unspecified; J44.0 Chronic obstructive pulmonary disease with (acute) lower respiratory infection; L89.152 Pressure ulcer of sacral region, stage 2; F31.9 Bipolar disorder, unspecified; I25.2 Old myocardial infarction; S00.93XA Contusion of unspecified part of head, initial encounter; W19.XXXA Unspecified fall, initial encounter; Y92.9 Unspecified place or not applicable; R91.8 Other nonspecific abnormal finding of lung field; R00.0 Tachycardia, unspecified; E87.6 Hypokalemia; E83.42 Hypomagnesemia; D64.9 Anemia, unspecified; Z85.3 Personal history of malignant neoplasm of breast; Z79.899 Other long term (current) drug therapy

== ENCOUNTER → 2024-10-10 | Outpatient (REF) | payer MEDICARE, MEDICAID ==
[~2024-10-10] MED LIST changes: +AMOX875T2 PO; +ENTR1TAB PO; +GABA-1172 PO; +JARD1TAB PO; +LEVO1TAB40 PO; +LIDO1ADH52 TOP; +MAGN400T2 PO; +MAGN400T33 PO; +MAGN400T35 PO; +METO1TAB32 PO; +MUCI1TAB16 PO; +PANT40TA29 PO; +SPIR50TA4 PO
[2024-10-10 18:30] LABS: BLOOD UREA NITROGEN 17 MG/DL (9-23); CALCIUM LEVEL 9.1 MG/DL (8.3-10.6); CARBON DIOXIDE LEVEL 25 MMOL/L (20-31); CHLORIDE LEVEL 103 MMOL/L (98-107); CREATININE FOR GFR 0.67 MG/DL (0.55-1.30); GLOMERULAR FILTRATION RATE > 90.0 (>45); GLUCOSE, FASTING 64 MG/DL (74-106); MAGNESIUM LEVEL 1.9 MG/DL (1.8-2.4); POTASSIUM SERUM 4.5 MMOL/L (3.5-5.1); SODIUM LEVEL 136 MMOL/L (136-145)
== END ==
LOC: M LAB REF 17:46
PROVIDERS: ATTEND Pediatrics
DX: E87.1 Hypo-osmolality and hyponatremia (principal); E83.42 Hypomagnesemia

== ENCOUNTER → 2024-11-14 | Outpatient (REF) | payer MEDICARE, MEDICAID ==
[2024-11-14 19:29] LABS: BASO # 0.0 10^3/uL (0.0-0.2); BASO % 0.4 % (0.0-1.0); EOS # 0.2 10^3/uL (0.0-0.5); EOS % 2.0 % (0.0-3.0); LYMPH # 3.1 10^3/uL (1.5-5.0); LYMPH % 31.9 % (24.0-44.0); MONO # 0.8 10^3/uL (0.0-0.8); MONO % 7.7 % (2.0-8.0); NEUTROPHILS # 5.6 10^3/uL (1.5-8.5); NEUTROPHILS % 57.6 % (36.0-66.0); PLATELET COUNT, AUTOMATED 366 10^3/uL (150-450)
[2024-11-14 20:01] LABS: CALCIUM LEVEL 10.1 MG/DL (8.3-10.6); CARBON DIOXIDE LEVEL 26 MMOL/L (20-31); CHLORIDE LEVEL 102 MMOL/L (98-107); CREATININE FOR GFR 0.65 MG/DL (0.55-1.30); GLOMERULAR FILTRATION RATE > 90.0 (>45); POTASSIUM SERUM 4.7 MMOL/L (3.5-5.1); SODIUM LEVEL 139 MMOL/L (136-145)
== END ==
LOC: M LAB REF 18:06
PROVIDERS: ATTEND Pediatrics
DX: D64.9 Anemia, unspecified (principal); E87.1 Hypo-osmolality and hyponatremia

== ENCOUNTER → 2024-12-13 | Outpatient (CLI) | payer MEDICARE, MEDICAID | LOC: M WHC 11-29 14:25 | PROVIDERS: ATTEND Pediatrics | DX: Z12.31 Encounter for screening mammogram for malignant neoplasm of breast (principal); M81.0 Age-related osteoporosis without current pathological fracture | CPT/HCPCS: 77067; 77080; G0279 ==

== ENCOUNTER 2025-01-15 13:17 | Emergency (ER) | payer MEDICARE, MEDICAID ==
[~2025-01-15] VITALS: Ht 160 cm; Wt 50.0 kg
[2025-01-15] MEDS ORDERED: GABA-1171 PO (14:57)
[2025-01-15] MEDS ORDERED: LIDO1PAD TOP (14:57)
[2025-01-15] MEDS: LIDOCAINE 5% PATCH TD ONE (15:09)
[2025-01-15] MEDS: GABAPENTIN 100 MG CAP PO ONE (15:09)
[2025-01-15 15:14] VITALS: BP 165/82; TEMP 97.9; O2SAT 97
== END 2025-01-15 15:16 | disposition home or self-care (01) ==
LOC: M ED 13:17 → EDBD 13:17 → M ED 15:16
DX: M25.551 Pain in right hip (principal); M54.31 Sciatica, right side; J44.9 Chronic obstructive pulmonary disease, unspecified; F31.9 Bipolar disorder, unspecified; Z79.51 Long term (current) use of inhaled steroids; Z79.899 Other long term (current) drug therapy